=== PATIENT | female | born 1970 | race African-American/Black ===

== ENCOUNTER → 2019-05-07 | Outpatient (CLI) | payer OTHER ==
[2019-05-07 09:54] LABS: BASO % 1 % (0-3); EOS # 0.1 x10^3/uL (0.0-0.7); EOS % 3 % (0-3); HEMATOCRIT 35.3 % (36.0-47.0); HEMOGLOBIN 11.8 g/dL (12.0-15.5); LYMPH # 1.2 x10^3/uL (1.0-4.8); LYMPH % 29 % (24-48); MEAN CORPUSCULAR HEMOGLOBIN 30 pg (25-35); MEAN CORPUSCULAR HGB CONC 34 g/dL (31-37); MEAN CORPUSCULAR VOLUME 90 fL (79-100); MONO # 0.5 x10^3/uL (0.0-1.1); MONO % 12 % (0-9); NEUT # 2.4 x10^3/uL (1.8-7.7); NEUT % 56 % (31-73); PLATELET COUNT 282 x10^3/uL (140-400); RED BLOOD COUNT 3.93 x10^6/uL (3.50-5.40); RED CELL DISTRIBUTION WIDTH 14.3 % (11.5-14.5); WHITE BLOOD COUNT 4.2 x10^3/uL (4.0-11.0)
[2019-05-07 10:10] LABS: ALBUMIN 3.2 g/dL (3.4-5.0); ALBUMIN/GLOBULIN RATIO 0.5 (1.0-1.7); CALCIUM 8.9 mg/dL (8.5-10.1); CREATININE 0.9 mg/dL (0.6-1.0); GFR 81.2; POTASSIUM 3.6 mmol/L (3.5-5.1); TOTAL BILIRUBIN 0.3 mg/dL (0.2-1.0); TOTAL PROTEIN 9.1 g/dL (6.4-8.2)
[2019-05-07 10:11] LABS: CHOLESTEROL/HDL RATIO 5.8
== END | disposition home or self-care (01) ==
LOC: LAB 09:26
PROVIDERS: ATTEND Family Medicine
DX: B20 Human immunodeficiency virus [HIV] disease (principal)
CPT/HCPCS: 80053; 80061; 85025; 86360; 87536

== ENCOUNTER 2019-07-17 19:07 | Emergency (ER) | payer OTHER ==
[~2019-07-17] VITALS: Ht 167.6 cm; Wt 76.2 kg
[2019-07-17] MEDS ORDERED: IV NORMAL SALINE 1000ML BAG 1,000 ML IV SCH (19:21)
--- NOTE | 2019-07-17 19:26 | PHYS DOC ---
Adult General Chief Complaint Chief Complaint: ABDOMINAL PAIN HPI HPI Patient is a 48-year-old female who presents with several day history of sore throat and fever at home. Patient states that she has been taking ibuprofen for the fever but fever has continually returned. She states that today symptoms were different in that she has had pain in her epigastric region. She states the pain is mild and rates it at a 3 out of 10. She denies any radiation of the pain. She states the worst of her symptoms are the sore throat. She denies any cough, nausea, vomiting or diarrhea. She does admit to some body aches and chill s.[] Review of Systems Review of Systems Constitutional: Positive fever and chills [] HENT: Denies nasal congestion or sore throat [] Respiratory: Denies cough or shortness of breath [] Cardiovascular: No additional information not addressed in HPI [] GI: Admits to epigastric discomfort without vomiting or diarrhea [] : Denies dysuria or hematuria [] Neurologic: Admits to mild headache without focal weakness or sensory changes [] All other systems were reviewed and found to be within normal limits, except as documented in this note. Current Medications Current Medications Current Medications Medications (Trade) Dose Ordered Sig/Joel Start Time Stop Time Status Last Admin Dose Admin Acetaminophen (Tylenol) 1,000 mg 1X ONCE 07/17/19 20:00 07/17/19 20:17 DC 07/17/19 20:03 1,000 MG Sodium Chloride 1,000 ml @ 1,000 mls/hr Q1H 07/17/19 19:21 07/17/19 20:20 DC 07/17/19 20:04 1,000 MLS/HR Allergies Allergies Allergies Coded Allergies Type Severity Reaction Last Updated Verified No Known Drug Allergies 07/17/19 No Physical Exam Physical Exam Constitutional: Well developed, well nourished, no acute distress, non-toxic appearance. [] HENT: Normocephalic, atraumatic, bilateral external ears normal, oropharynx moist, no oral exudates, nose normal. [] Eyes: PERRLA, EOMI, conjunctiva normal, no discharge. [] Neck: Normal range of motion, no tenderness, supple, no stridor. [] Cardiovascular:Heart rate regular rhythm, no murmur [] Lungs & Thorax: Bilateral breath sounds clear to auscultation [] Abdomen: Bowel sounds normal, soft, with mild epigastric tenderness. [] Skin: Warm, dry, no erythema, no rash. [] Extremities: No tenderness, no cyanosis, no clubbing, ROM intact. [] Neurologic: Alert and oriented X 3, no focal deficits noted. [] Current Patient Data Vital Signs Vital Signs Date Time Temp Pulse Resp B/P (MAP) Pulse Ox O2 Delivery O2 Flow Rate FiO2 07/17/19 21:10 93 103/62 (76) 95 Room Air 07/17/19 20:45 99.8 99.8 07/17/19 20:20 18 Lab Values Laboratory Tests Test 07/17/19 19:25 07/17/19 19:31 07/17/19 19:40 Urine Collection Type Unknown Urine Color Yellow Urine Clarity Cloudy Urine pH 5.0 Urine Specific [place] 1.020 Urine Protein 30 mg/dL (NEG-TRACE) Urine Glucose (UA) Negative mg/dL (NEG) Urine Ketones (Stick) Negative mg/dL (NEG) Urine Blood Large (NEG) Urine Nitrite Negative (NEG) Urine Bilirubin Negative (NEG) Urine Urobilinogen Dipstick 0.2 mg/dL (0.2 mg/dL) Urine Leukocyte Esterase Small (NEG) Urine RBC Occ /HPF (0-2) Urine WBC 11-20 /HPF (0-4) Urine Squamous Epithelial Cells Many /LPF Urine Bacteria Many /HPF (0-FEW) Urine Mucus Marked /LPF Influenza Type A Antigen Negative (NEGATIVE) Influenza Type B Antigen Negative (NEGATIVE) POC Urine HCG, Qualitative Hcg negative (Negative) White Blood Count 12.0 x10^3/uL (4.0-11.0) H Red Blood Count 3.38 x10^6/uL (3.50-5.40) L Hemoglobin 10.4 g/dL (12.0-15.5) L Hematocrit 30.0 % (36.0-47.0) L Mean Corpuscular Volume 89 fL (79-100) Mean Corpuscular Hemoglobin 31 pg (25-35) Mean Corpuscular Hemoglobin Concent 35 g/dL (31-37) Red Cell Distribution Width 13.5 % (11.5-14.5) Platelet Count 261 x10^3/uL (140-400) Neutrophils (%) (Auto) 73 % (31-73) Lymphocytes (%) (Auto) 14 % (24-48) L Monocytes (%) (Auto) 12 % (0-9) H Eosinophils (%) (Auto) 0 % (0-3) Basophils (%) (Auto) 0 % (0-3) Neutrophils # (Auto) 8.8 x10^3/uL (1.8-7.7) H Lymphocytes # (Auto) 1.7 x10^3/uL (1.0-4.8) Monocytes # (Auto) 1.5 x10^3/uL (0.0-1.1) H Eosinophils # (Auto) 0.1 x10^3/uL (0.0-0.7) Basophils # (Auto) 0.0 x10^3/uL (0.0-0.2) Sodium Level 139 mmol/L (136-145) Potassium Level 3.9 mmol/L (3.5-5.1) Chloride Level 103 mmol/L (98-107) Carbon Dioxide Level 25 mmol/L (21-32) Anion Gap 11 (6-14) Blood Urea Nitrogen 24 mg/dL (7-20) H Creatinine 1.5 mg/dL (0.6-1.0) H Estimated GFR (Cockcroft-Gault) 45.0 BUN/Creatinine Ratio 16 (6-20) Glucose Level 103 mg/dL (70-99) H Lactic Acid Level 0.7 mmol/L (0.4-2.0) Calcium Level 8.8 mg/dL (8.5-10.1) Total Bilirubin 0.2 mg/dL (0.2-1.0) Aspartate Amino Transferase (AST) 19 U/L (15-37) Alanine Aminotransferase (ALT) 12 U/L (14-59) L Alkaline Phosphatase 135 U/L (46-116) H Total Protein 9.2 g/dL (6.4-8.2) H Albumin 2.9 g/dL (3.4-5.0) L Albumin/Globulin Ratio 0.5 (1.0-1.7) L Lipase 163 U/L (73-393) Laboratory Tests 07/17/19 19:40 Laboratory Tests 07/17/19 19:40 EKG EKG [] Radiology/Procedures Radiology/Procedures [] Impressions: PROCEDURE: CT ABDOMEN PELVIS WO CONTRAST Exam: CT abdomen and pelvis without contrast INDICATION: Abdominal pain TECHNIQUE: Sequential axial images through the abdomen and pelvis obtained without IV contrast. Sagittal and coronal reformatted images were reconstructed from the axial data and reviewed. Comparisons: None FINDINGS: Heart size is normal. No pericardial effusion. Visualized lung bases are clear. No pleural effusion. Evaluation of the solid organs is limited secondary to noncontrast technique. Liver, spleen, pancreas, gallbladder and adrenals are unremarkable. No perinephric inflammation or hydronephrosis. No renal or ureteral calculi are identified. Bladder is distended and appears thin-walled. Uterus is not enlarged. No abnormal adnexal mass. Large and small bowel are unremarkable. No obstruction. No free intra-abdominal air or fluid. Appendix is not identified. Abdominal aorta has a normal course and caliber. No enlarged abdominal lymph nodes are identified. No suspicious osseous lesions or acute fractures. IMPRESSION: No acute process identified within the abdomen or pelvis. Exposure: One or more of the following in the visualized dose reduction techniques were utilized for this examination: 1. Automated exposure control 2. Adjustment of the MA and/or KV according to patient size 3. Use of iterative of reconstructive technique Electronically signed by: Lisbeth Whalen MD (07/17/2019 9:02 PM) [facility] Course & Med Decision Making Course & Med Decision Making Pertinent Labs and Imaging studies reviewed. (See chart for details) [] Dragon Disclaimer Dragon Disclaimer This electronic medical record was generated, in whole or in part, using a voice recognition dictation system. Departure Departure Impression: Primary Impression: Pharyngitis Additional Impression: Epigastric abdominal pain Disposition: 01 HOME, SELF-CARE Condition: STABLE Referrals: ESTEFANIA TORO MD (PCP) Patient Instructions: Abdominal Pain, Viral and Bacterial Pharyngitis Scripts Azithromycin (ZITHROMAX) 250 Mg Tablet 1 PKG PO UD, #6 TAB Prov: MANDO BEDOLLA Jr. DO 07/17/19 Problem Qualifiers Primary Impression: Pharyngitis Pharyngitis/tonsillitis etiology: unspecified etiology Qualified Codes: J02.9 - Acute pharyngitis, unspecified MANDO BEDOLLA Jr. DO Jul 17, 2019 19:26
[2019-07-17 19:38] LABS: BILIRUBIN,URINE NEGATIVE (NEG); CLARITY,URINE CLOUDY; COLOR,URINE YELLOW; NITRITE,URINE NEGATIVE (NEG); PROTEIN,URINE 30 mg/dL (NEG-TRACE); UROBILINOGEN,URINE 0.2 mg/dL (0.2 mg/dL)
[2019-07-17 19:42] LABS: BACTERIA,URINE MANY /HPF (0-FEW); RBC,URINE OCC /HPF (0-2); SQUAMOUS EPITHELIAL CELL,UR MANY /LPF
[2019-07-17] MEDS ORDERED: ACETAMINOPHEN 500 MG TABLET PO ONE (20:00)
[2019-07-17 20:02] LABS: BASO % 0 % (0-3); EOS # 0.1 x10^3/uL (0.0-0.7); EOS % 0 % (0-3); HEMOGLOBIN 10.4 g/dL (12.0-15.5); LYMPH # 1.7 x10^3/uL (1.0-4.8); LYMPH % 14 % (24-48); MEAN CORPUSCULAR HEMOGLOBIN 31 pg (25-35); MEAN CORPUSCULAR HGB CONC 35 g/dL (31-37); MEAN CORPUSCULAR VOLUME 89 fL (79-100); MONO # 1.5 x10^3/uL (0.0-1.1); MONO % 12 % (0-9); NEUT # 8.8 x10^3/uL (1.8-7.7); NEUT % 73 % (31-73); PLATELET COUNT 261 x10^3/uL (140-400); RED BLOOD COUNT 3.38 x10^6/uL (3.50-5.40); RED CELL DISTRIBUTION WIDTH 13.5 % (11.5-14.5)
[2019-07-17 20:09] LABS: CALCIUM 8.8 mg/dL (8.5-10.1); CREATININE 1.5 mg/dL (0.6-1.0); POTASSIUM 3.9 mmol/L (3.5-5.1)
[2019-07-17 20:14] LABS: ALBUMIN 2.9 g/dL (3.4-5.0); ALBUMIN/GLOBULIN RATIO 0.5 (1.0-1.7); TOTAL BILIRUBIN 0.2 mg/dL (0.2-1.0); TOTAL PROTEIN 9.2 g/dL (6.4-8.2)
[2019-07-17 20:14] LABS: INFLUENZA A PATIENT NEGATIVE (NEGATIVE); INFLUENZA B PATIENT NEGATIVE (NEGATIVE)
--- NOTE | 2019-07-17 21:05 | RAD ---
Exam: CT abdomen and pelvis without contrast INDICATION: Abdominal pain TECHNIQUE: Sequential axial images through the abdomen and pelvis obtained without IV contrast. Sagittal and coronal reformatted images were reconstructed from the axial data and reviewed. Comparisons: None FINDINGS: Heart size is normal. No pericardial effusion. Visualized lung bases are clear. No pleural effusion. Evaluation of the solid organs is limited secondary to noncontrast technique. Liver, spleen, pancreas, gallbladder and adrenals are unremarkable. No perinephric inflammation or hydronephrosis. No renal or ureteral calculi are identified. Bladder is distended and appears thin-walled. Uterus is not enlarged. No abnormal adnexal mass. Large and small bowel are unremarkable. No obstruction. No free intra-abdominal air or fluid. Appendix is not identified. Abdominal aorta has a normal course and caliber. No enlarged abdominal lymph nodes are identified. No suspicious osseous lesions or acute fractures. IMPRESSION: No acute process identified within the abdomen or pelvis. Exposure: One or more of the following in the visualized dose reduction techniques were utilized for this examination: 1. Automated exposure control 2. Adjustment of the MA and/or KV according to patient size 3. Use of iterative of reconstructive technique Electronically signed by: Lisbeth Whalen MD (07/17/2019 9:02 PM) [facility]
--- NOTE | 2019-07-17 21:46 | RAD ---
CHEST AP ONLY History: Fever Comparison: None. Findings: No consolidation or pleural effusion. Normal heart size. Impression: 1. No acute cardiopulmonary process. Electronically signed by: Mauricio Vasques DO (07/17/2019 9:43 PM) [id number]
[2019-07-17 22:10] VITALS: BP 98/55
[2019-07-17] MEDS ORDERED: AZIT250T PO (22:14)
[2019-07-17] MEDS ORDERED: AZITHROMYCIN 250 MG TABLET. PO ONE (22:30)
== END 2019-07-17 22:50 | disposition home or self-care (01) ==
LOC: EEVIPCON 19:07 → ER 19:07
DX: J02.9 Acute pharyngitis, unspecified (principal); R10.13 Epigastric pain; R19.7 Diarrhea, unspecified
CPT/HCPCS: 36415; 71045; 74176; 80053; 81001; 81025; 83605; 83690; 85025; 87070; 87086; 87804; 87880; 96360; 99285; J7030; Q0144

== ENCOUNTER → 2019-08-05 | Outpatient (CLI) | payer OTHER ==
[2019-07-17 22:10] VITALS: BP 98/55
[~2019-08-05] MED LIST: AZIT250T PO
[2019-08-05 15:49] LABS: BASO % 1 % (0-3); EOS # 0.2 x10^3/uL (0.0-0.7); EOS % 4 % (0-3); HEMATOCRIT 33.1 % (36.0-47.0); HEMOGLOBIN 11.1 g/dL (12.0-15.5); LYMPH # 1.4 x10^3/uL (1.0-4.8); LYMPH % 35 % (24-48); MEAN CORPUSCULAR HEMOGLOBIN 31 pg (25-35); MEAN CORPUSCULAR HGB CONC 34 g/dL (31-37); MEAN CORPUSCULAR VOLUME 91 fL (79-100); MONO # 0.6 x10^3/uL (0.0-1.1); MONO % 15 % (0-9); NEUT # 1.8 x10^3/uL (1.8-7.7); NEUT % 45 % (31-73); PLATELET COUNT 279 x10^3/uL (140-400); RED BLOOD COUNT 3.65 x10^6/uL (3.50-5.40); RED CELL DISTRIBUTION WIDTH 13.8 % (11.5-14.5); WHITE BLOOD COUNT 4.1 x10^3/uL (4.0-11.0)
[2019-08-05 16:25] LABS: ALBUMIN 3.2 g/dL (3.4-5.0); ALBUMIN/GLOBULIN RATIO 0.5 (1.0-1.7); CALCIUM 8.7 mg/dL (8.5-10.1); CREATININE 1.3 mg/dL (0.6-1.0); GFR 53.1; TOTAL BILIRUBIN 0.2 mg/dL (0.2-1.0); TOTAL PROTEIN 9.3 g/dL (6.4-8.2)
[2019-08-05 16:27] LABS: CHOLESTEROL/HDL RATIO 7.2
== END | disposition home or self-care (01) ==
LOC: LAB 15:16
PROVIDERS: ATTEND Family Medicine
DX: B20 Human immunodeficiency virus [HIV] disease (principal)
CPT/HCPCS: 36415; 80053; 80061; 85025; 87536

== ENCOUNTER → 2019-11-26 | Outpatient (CLI) | payer OTHER ==
[2019-11-26 14:02] LABS: BASO % 1 % (0-3); EOS # 0.1 x10^3/uL (0.0-0.7); EOS % 2 % (0-3); HEMATOCRIT 31.4 % (36.0-47.0); HEMOGLOBIN 10.5 g/dL (12.0-15.5); LYMPH # 1.6 x10^3/uL (1.0-4.8); LYMPH % 29 % (24-48); MEAN CORPUSCULAR HEMOGLOBIN 31 pg (25-35); MEAN CORPUSCULAR HGB CONC 33 g/dL (31-37); MEAN CORPUSCULAR VOLUME 91 fL (79-100); MONO # 0.5 x10^3/uL (0.0-1.1); MONO % 9 % (0-9); NEUT # 3.2 x10^3/uL (1.8-7.7); NEUT % 59 % (31-73); PLATELET COUNT 335 x10^3/uL (140-400); RED BLOOD COUNT 3.43 x10^6/uL (3.50-5.40); RED CELL DISTRIBUTION WIDTH 13.5 % (11.5-14.5); WHITE BLOOD COUNT 5.4 x10^3/uL (4.0-11.0)
[2019-11-26 14:20] LABS: ALBUMIN 3.1 g/dL (3.4-5.0); ALBUMIN/GLOBULIN RATIO 0.6 (1.0-1.7); CALCIUM 9.1 mg/dL (8.5-10.1); CREATININE 1.5 mg/dL (0.6-1.0); GFR 44.8; POTASSIUM 4.6 mmol/L (3.5-5.1); TOTAL BILIRUBIN 0.2 mg/dL (0.2-1.0); TOTAL PROTEIN 8.7 g/dL (6.4-8.2)
[2019-11-26 14:26] LABS: CHOLESTEROL/HDL RATIO 8.5
== END | disposition home or self-care (01) ==
LOC: LAB 13:09
PROVIDERS: ATTEND Family Medicine
DX: B20 Human immunodeficiency virus [HIV] disease (principal)
CPT/HCPCS: 36415; 80053; 80061; 85025; 87536

== ENCOUNTER → 2020-05-25 | Outpatient (CLI) | payer OTHER ==
[2020-05-25 10:52] LABS: ALBUMIN 3.3 g/dL (3.4-5.0); ALBUMIN/GLOBULIN RATIO 0.5 (1.0-1.7); CALCIUM 9.1 mg/dL (8.5-10.1); CREATININE 1.3 mg/dL (0.6-1.0); GFR 52.9; POTASSIUM 3.8 mmol/L (3.5-5.1); TOTAL BILIRUBIN 0.2 mg/dL (0.2-1.0); TOTAL PROTEIN 9.9 g/dL (6.4-8.2)
[2020-05-25 11:02] LABS: BASO % 1 % (0-3); EOS # 0.2 x10^3/uL (0.0-0.7); EOS % 3 % (0-3); HEMATOCRIT 31.4 % (36.0-47.0); HEMOGLOBIN 10.8 g/dL (12.0-15.5); LYMPH # 2.1 x10^3/uL (1.0-4.8); LYMPH % 25 % (24-48); MEAN CORPUSCULAR HEMOGLOBIN 31 pg (25-35); MEAN CORPUSCULAR HGB CONC 34 g/dL (31-37); MEAN CORPUSCULAR VOLUME 91 fL (79-100); MONO # 1.4 x10^3/uL (0.0-1.1); MONO % 16 % (0-9); NEUT # 4.8 x10^3/uL (1.8-7.7); NEUT % 56 % (31-73); PLATELET COUNT 330 x10^3/uL (140-400); RED BLOOD COUNT 3.46 x10^6/uL (3.50-5.40); RED CELL DISTRIBUTION WIDTH 14.5 % (11.5-14.5); WHITE BLOOD COUNT 8.6 x10^3/uL (4.0-11.0)
== END | disposition home or self-care (01) ==
LOC: LAB 10:00
PROVIDERS: ATTEND Family Medicine
DX: B20 Human immunodeficiency virus [HIV] disease (principal)
CPT/HCPCS: 36415; 80053; 80061; 85025; 87536

== ENCOUNTER 2020-11-17 14:42 | Inpatient (IN) | payer OTHER ==
[~2020-11-17] VITALS: Ht 170.2 cm; Wt 74.7 kg
[2020-11-17] MEDS ORDERED: FAMOTIDINE 20 MG/2 ML VIAL IVP ONE (15:45)
[2020-11-17] MEDS ORDERED: IV NORMAL SALINE 1000ML BAG 1,000 ML IV SCH (15:45)
[2020-11-17] MEDS ORDERED: ONDANSETRON PF 4 MG/2 ML VIAL. IVP ONE (15:45)
[2020-11-17] MEDS ORDERED: IV NORMAL SALINE 1000ML BAG 1,000 ML IV ONE (15:45)
--- NOTE | 2020-11-17 15:52 | RAD ---
EXAM: XR CHEST 1V 11/17/2020 3:41 PM CLINICAL INDICATION: Vomiting, fever. COMPARISON: Chest radiograph 07/17/2019 TECHNIQUE: AP upright view the chest FINDINGS: The heart and mediastinum are normal. Lungs are well-expanded and clear. No consolidation, pleural effusion, or pneumothorax. No acute osseous abnormality. IMPRESSION: No acute cardiopulmonary abnormality. Electronically signed by: Danna Reyes MD (11/17/2020 3:50 PM) [id number]
[2020-11-17 16:02] LABS: CLARITY,URINE TURBID
[2020-11-17 16:04] LABS: AMPHETAMINE/METHAMPHETAMINE NEG (NEG); BARBITURATES NEG (NEG); BENZODIAZEPINES NEG (NEG); CANNABINOIDS NEG (NEG); COCAINE NEG (NEG); METHADONE NEG (NEG); OPIATES NEG (NEG); PHENCYCLIDINE NEG (NEG)
--- NOTE | 2020-11-17 16:14 | PHYS DOC ---
Past Medical History Past Medical History: HIV Past Surgical History: , Tonsillectomy Smoking Status: Never Smoker Alcohol Use: None Drug Use: None General Adult EDM: Chief Complaint: NAUSEA/VOMITING/DIARRHA HPI: HPI: Patient is a 50 year old female who presents with nausea, vomiting, chills, fatigue but no abdominal pain. She has no other pain. Patient has been feeling this way for the last 4 days or longer. Patient states she has no medical history and has been taking no meds. Looking back in her chart patient has been diagnosed with HIV in the past, has had tonsillectomy and . Patient denies chest pain, shortness of breath, abdominal pain, diarrhea, sore throat, nasal congestion, headache, dizziness, syncope, numbness or tingling, focal weakness, back pain. Review of Systems: Review of Systems: Constitutional: +fever or +chills. [] Eyes: Denies change in visual acuity. [] HENT: Denies nasal congestion or sore throat. [] Respiratory: Denies cough or shortness of breath. [] Cardiovascular: Denies chest pain or edema. [] GI: Denies abdominal pain, +nausea, +vomiting, denies bloody stools or diarrhea. [] : Denies dysuria. [] Musculoskeletal: Denies back pain or joint pain. +Generalized fatigue [] Integument: Denies rash. [] Neurologic: Denies headache, focal weakness or sensory changes. [] Endocrine: Denies polyuria or polydipsia. [] Lymphatic: Denies swollen glands. [] Psychiatric: Denies depression or anxiety. [] Heart Score: Risk Factors: Risk Factors: DM, Current or recent (<one month) smoker, HTN, HLP, family history of CAD, obesity. Risk Scores: Score 0 - 3: 2.5% MACE over next 6 weeks - Discharge Home Score 4 - 6: 20.3% MACE over next 6 weeks - Admit for Clinical Observation Score 7 - 10: 72.7% MACE over next 6 weeks - Early Invasive Strategies Current Medications: Current Medications Medications (Trade) Dose Ordered Sig/Joel Start Time Stop Time Status Last Admin Dose Admin Famotidine (Pepcid Vial) 20 mg 1X ONCE 11/17/20 15:45 11/17/20 15:46 DC Ondansetron HCl (Zofran) 4 mg 1X ONCE 11/17/20 15:45 11/17/20 15:46 DC Sodium Chloride 1,000 ml @ 1,000 mls/hr 1X ONCE 11/17/20 15:45 11/17/20 16:44 Allergies: Allergies: Allergies Coded Allergies Type Severity Reaction Last Updated Verified No Known Drug Allergies 07/17/19 No Physical Exam: PE: Constitutional: Well developed, well nourished, no acute distress, non-toxic appearance. [] HENT: Normocephalic, atraumatic, bilateral external ears normal, oropharynx moist, no oral exudates, nose normal. [] Eyes: PERRLA, EOMI, conjunctiva normal, no discharge. [] Neck: Normal range of motion, no tenderness, supple, no stridor. [] Cardiovascular:Heart rate tachy regular rhythm, no murmur [] Lungs & Thorax: Bilateral breath sounds clear to auscultation [] Abdomen: Bowel sounds normal, soft, no tenderness, no masses, no pulsatile masses. [] Skin: Warm, dry, no erythema, no rash. [] Back: No tenderness, no CVA tenderness. [] Extremities: No tenderness, no cyanosis, no clubbing, ROM intact, no edema. [] Neurologic: Alert and oriented X 3, normal motor function, normal sensory function, no focal deficits noted. [] Psychologic: Affect normal, judgement normal, mood normal. [] Current Patient Data: Vital Signs: Vital Signs Date Time Temp Pulse Resp B/P (MAP) Pulse Ox O2 Delivery O2 Flow Rate FiO2 11/17/20 15:00 98.2 120 22 120/79 (93) 97 Room Air 98.2 EKG: EK and read by Dr. Jaramillo as sinus tach and no STEMI Radiology/Procedures: Radiology/Procedures: [] Impression: [facility] [address] [place], [place] [id number] IMAGING REPORT Signed PATIENT: SHAYY GAMEZ ACCOUNT: [id number] : 1970 LOCATION: ER AGE: 50 SEX: F EXAM STATUS: REG ER ORD. PHYSICIAN: BAFUS,MARBIN M [employer] DEV[employer]OPER REASON: vomiting, fever PROCEDURE: PORTABLE CHEST 1V EXAM: XR CHEST 1V 11/17/2020 3:41 PM CLINICAL INDICATION: Vomiting, fever. COMPARISON: Chest radiograph 07/17/2019 TECHNIQUE: AP upright view the chest FINDINGS: The heart and mediastinum are normal. Lungs are well-expanded and clear. No consolidation, pleural effusion, or pneumothorax. No acute osseous abnormality. IMPRESSION: No acute cardiopulmonary abnormality. Electronically signed by: Danna Reyes MD (11/17/2020 3:50 PM) [id number] DICTATED and SIGNED BY: DANNA REYES MD DATE: 11/17/20 [id number] 0 Course & Med Decision Making: Course & Med Decision Making Pertinent Labs and Imaging studies reviewed. (See chart for details) See HPI. Alert and oriented x4. Ambulatory with a steady gait. She states that her appetite has been decreased. Her urine is very dark in color. Abdomen is soft and nontender. Lungs are clear to auscultation all lobes. Patient is slightly tachycardic at 108. She is afebrile. X-ray shows no acute findings. Patient has an LEXX. She has received 2 L normal saline. Her heart rate is come down to 87. She is admitted for an LEXX and we will have infectious disease and nephrology see her. She is admitted to Dr. Ray. I spoken to Dr. Hawthorne and she states she is to make sure the patient has a.m. labs. [] [place] Disclaimer: Perla Disclaimer: This electronic medical record was generated, in whole or in part, using a voice recognition dictation system. Departure Departure Impression: Primary Impression: Acute kidney injury Disposition: ADMITTED INPT THIS HOSP Admitting Physician: PATRICK Condition: STABLE Referrals: ESTEFANIA TORO MD (PCP) MARBIN GUPTA APRN Nov 17, 2020 16:14
[2020-11-17 16:24] LABS: RBC,URINE TNTC /HPF (0-2)
[2020-11-17 16:25] LABS: BACTERIA,URINE MANY /HPF (0-FEW)
[2020-11-17 16:27] LABS: COLOR,URINE BROWN
[2020-11-17 16:28] LABS: BASO # 0.1 x10^3/uL (0.0-0.2); BASO % 1 % (0-3); EOS % 0 % (0-3); HEMATOCRIT 31.6 % (36.0-47.0); HEMOGLOBIN 10.7 g/dL (12.0-15.5); LYMPH # 1.2 x10^3/uL (1.0-4.8); LYMPH % 11 % (24-48); MEAN CORPUSCULAR HEMOGLOBIN 30 pg (25-35); MEAN CORPUSCULAR HGB CONC 34 g/dL (31-37); MEAN CORPUSCULAR VOLUME 89 fL (79-100); MONO # 1.6 x10^3/uL (0.0-1.1); MONO % 15 % (0-9); NEUT % 74 % (31-73); PLATELET COUNT 264 x10^3/uL (140-400); RED BLOOD COUNT 3.57 x10^6/uL (3.50-5.40); RED CELL DISTRIBUTION WIDTH 15.3 % (11.5-14.5); WHITE BLOOD COUNT 10.8 x10^3/uL (4.0-11.0)
[2020-11-17] MEDS ORDERED: cefTRIAXone IV Push 1 GM VIAL. IVP ONE (16:45)
[2020-11-17 16:49] LABS: U PREG PATIENT NEGATIVE (NEG)
[2020-11-17 17:09] LABS: CALCIUM 9.5 mg/dL (8.5-10.1); CREATININE 2.1 mg/dL (0.6-1.0); GFR 30.3; POTASSIUM 3.7 mmol/L (3.5-5.1)
[2020-11-17 17:15] LABS: ALBUMIN 3.2 g/dL (3.4-5.0); ALBUMIN/GLOBULIN RATIO 0.5 (1.0-1.7); TOTAL BILIRUBIN 0.2 mg/dL (0.2-1.0); TOTAL PROTEIN 9.7 g/dL (6.4-8.2)
[2020-11-17] MEDS ORDERED: ONDANSETRON PF 4 MG/2 ML VIAL. IV PRN (18:30)
--- NOTE | 2020-11-17 19:20 | HP ---
ADMIT DATE: 11/17/2020 CHIEF COMPLAINT: Nausea, vomiting, chills. HISTORY OF PRESENT ILLNESS: The patient is a pleasant middle-aged female who has HIV. I do not think she is taking her medications. Now, she has nausea, vomiting, chills, diarrhea, it has been occurring for a couple of days, rated at 7/10. While in the ER, we noticed that she has an acute kidney injury with a BUN of 34, creatinine of 2.1. I discussed the case with ER physician. We are going to admit the patient and consult Infectious Disease and Nephrology. PAST MEDICAL HISTORY: Noncompliance, HIV, , tonsillectomy. ALLERGIES: None. FAMILY HISTORY: Diabetes. SOCIAL HISTORY: She does not drink, smoke or take drugs. MEDICATIONS: Reviewed, please refer to the MRAD. REVIEW OF SYSTEMS: GENERAL: No history of weight change, weakness or fevers. SKIN: No bruising, hair changes or rashes. EYES: No blurred, double or loss of vision. NOSE AND THROAT: No history of nosebleeds, hoarseness or sore throat. HEART: No history of palpitations, chest pain or shortness of breath on exertion. LUNGS: Denies cough, hemoptysis, wheezing or shortness of breath. GASTROINTESTINAL: She complains of nausea, vomiting, diarrhea. GENITOURINARY: No history of frequency, urgency, hesitancy or nocturia. NEUROLOGIC: Denies history of numbness, tingling, tremor or weakness. PSYCHIATRIC: No history of panic, anxiety or depression. ENDOCRINE: No history of heat or cold intolerance, polyuria or polydipsia. EXTREMITIES: Denies muscle weakness, joint pain, pain on walking or stiffness. PHYSICAL EXAMINATION: VITALS: Within normal limits and are stable. GENERAL: No apparent distress. Alert and oriented. HEENT: Normal cephalic atraumatic, external auditory canals are patent. EYES: Extraocular muscles are intact, pupils are equally round and reactive to light and accommodation. MUSCULOSKELETAL: Well developed, well nourished, good range of motion. ENDOCRINE: No thyromegaly was palpated. LYMPHATICS: No cervical chain or axillary nodes were noted. HEMATOPOIETIC: No bruising. NECK: Supple, no JVD, no thyromegaly was noted. LUNGS: Clear to auscultation in all lung santana without rhonchi or wheezing. HEART: RRR, S1, S2 present. Peripheral pulses intact, no obvious murmurs were noted. ABDOMEN: Soft, nontender. Positive bowel sounds no organomegaly, normal bowel sounds. EXTREMITIES: Without any cyanosis, clubbing, or edema. Pedal pulses intact, Homans sign is negative. NEUROLOGIC: Normal speech, normal tone. A & O x 3, moves all extremities, no obvious focal deficits. PSYCHIATRIC: Normal affect, normal mood. Stable. SKIN: No ulcerations or rashes, good skin turgor, no jaundice. VASCULAR: Good capillary refill, neurovascular bundle appears to be intact. LABORATORY DATA: White count is 10. Chest x-ray negative. BUN 34, creatinine 2.1. ASSESSMENT AND PLAN: Nausea, vomiting, diarrhea with incidental finding of acute kidney injury with a BUN of 34, creatinine 2.1. The patient will be admitted. We will start IV fluids. Consult Infectious Disease. Consult Nephrology. Home meds, DVT prophylaxis. Full code. P.r.n. Kaleb. We started one dose of IV ceftriaxone, IV Pepcid. Drug screen. LENNY LATHAM DO DR: GIRISH/doyle JOB#: [id number] / [id number]
[2020-11-17 22:49] VITALS: BP 119/71
[2020-11-18 03:06] VITALS: BP 118/57
[2020-11-18] MEDS: ACETAMINOPHEN 325 MG TABLET. PO PRN ×2 (03:23→13:52)
[2020-11-18 07:00] VITALS: BP 108/63
[2020-11-18 08:05] LABS: BASO % 1 % (0-3); EOS % 0 % (0-3); HEMOGLOBIN 8.9 g/dL (12.0-15.5); LYMPH # 1.5 x10^3/uL (1.0-4.8); LYMPH % 17 % (24-48); MEAN CORPUSCULAR HEMOGLOBIN 30 pg (25-35); MEAN CORPUSCULAR HGB CONC 34 g/dL (31-37); MEAN CORPUSCULAR VOLUME 89 fL (79-100); MONO # 1.5 x10^3/uL (0.0-1.1); MONO % 17 % (0-9); NEUT # 5.9 x10^3/uL (1.8-7.7); NEUT % 66 % (31-73); PLATELET COUNT 239 x10^3/uL (140-400); RED BLOOD COUNT 2.93 x10^6/uL (3.50-5.40); RED CELL DISTRIBUTION WIDTH 15.2 % (11.5-14.5); WHITE BLOOD COUNT 8.9 x10^3/uL (4.0-11.0)
[2020-11-18 08:31] LABS: ALBUMIN 2.5 g/dL (3.4-5.0); ALBUMIN/GLOBULIN RATIO 0.5 (1.0-1.7); CALCIUM 8.8 mg/dL (8.5-10.1); CREATININE 1.7 mg/dL (0.6-1.0); GFR 38.7; POTASSIUM 3.5 mmol/L (3.5-5.1); TOTAL BILIRUBIN 0.2 mg/dL (0.2-1.0); TOTAL PROTEIN 7.8 g/dL (6.4-8.2)
--- NOTE | 2020-11-18 09:57 | PDOC ---
PROGRESS NOTES Date of Service: DATE: 11/18/20 TIME: 09:56 Chief Complaint Chief Complaint ASSESSMENT AND PLAN: Nausea, vomiting, diarrhea acute kidney injury with a BUN of 34, creatinine 2.1. sepsis possible acute pyelonephritis HEMATURIA t max 101.4 this am 2-10 admitted. IV fluids. Consult Infectious Disease. pending Consult Nephrology. pending Home meds, DVT prophylaxis. Full code. P.r.n. Zofran. IV ceftriaxone, IV Pepcid. Drug screen. blood culture crp RENAL SONO D/W RN History of Present Illness History of Present Illness CHIEF COMPLAINT: Nausea, vomiting, chills. HISTORY OF PRESENT ILLNESS: The patient is a pleasant middle-aged female who has HIV. I do not think she is taking her medications. Now, she has nausea, vomiting, chills, diarrhea, it has been occurring for a couple of days, rated at 7/10. While in the ER, we noticed that she has an acute kidney injury with a BUN of 34, creatinine of 2.1. We are going to admit the patient and consult Infectious Disease and Nephrology. PAST MEDICAL HISTORY: Noncompliance, HIV, , tonsillectomy. ALLERGIES: None. FAMILY HISTORY: Diabetes. SOCIAL HISTORY: She does not drink, smoke or take drugs. MEDICATIONS: Reviewed, please refer to the MRAD. REVIEW OF SYSTEMS: GENERAL: No history of weight change, weakness or fevers. SKIN: No bruising, hair changes or rashes. EYES: No blurred, double or loss of vision. NOSE AND THROAT: No history of nosebleeds, hoarseness or sore throat. HEART: No history of palpitations, chest pain or shortness of breath on exertion. LUNGS: Denies cough, hemoptysis, wheezing or shortness of breath. GASTROINTESTINAL: She complains of nausea, vomiting, diarrhea. GENITOURINARY: No history of frequency, urgency, hesitancy or nocturia. NEUROLOGIC: Denies history of numbness, tingling, tremor or weakness. PSYCHIATRIC: No history of panic, anxiety or depression. ENDOCRINE: No history of heat or cold intolerance, polyuria or polydipsia. EXTREMITIES: Denies muscle weakness, joint pain, pain on walking or stiffness. Vitals Vitals Vital Signs Date Time Temp Pulse Resp B/P (MAP) Pulse Ox O2 Delivery O2 Flow Rate FiO2 11/18/20 07:00 99.1 78 18 108/63 (78) 96 Room Air 99.1 Physical Exam Physical Exam EYES: Extraocular muscles are intact, pupils are equally round and reactive to light and accommodation. MUSCULOSKELETAL: Well developed, well nourished, good range of motion. ENDOCRINE: No thyromegaly was palpated. LYMPHATICS: No cervical chain or axillary nodes were noted. HEMATOPOIETIC: No bruising. NECK: Supple, no JVD, no thyromegaly was noted. LUNGS: Clear to auscultation in all lung santana without rhonchi or wheezing. HEART: RRR, S1, S2 present. Peripheral pulses intact, no obvious murmurs were noted. ABDOMEN: Soft, nontender. Positive bowel sounds no organomegaly, normal bowel sounds. EXTREMITIES: Without any cyanosis, clubbing, or edema. Pedal pulses intact, Homans sign is negative. NEUROLOGIC: Normal speech, normal tone. A & O x 3, moves all extremities, no obvious focal deficits. PSYCHIATRIC: Normal affect, normal mood. Stable. SKIN: No ulcerations or rashes, good skin turgor, no jaundice. VASCULAR: Good capillary refill, neurovascular bundle appears to be intact. General: Alert, Oriented X3, Cooperative, No acute distress Heart: Regular rate Lungs: Clear Extremities: No cyanosis Labs LABS Exam: CT abdomen and pelvis without contrast INDICATION: Abdominal pain TECHNIQUE: Sequential axial images through the abdomen and pelvis obtained without IV contrast. Sagittal and coronal reformatted images were reconstructed from the axial data and reviewed. Comparisons: None FINDINGS: Heart size is normal. No pericardial effusion. Visualized lung bases are clear. No pleural effusion. Evaluation of the solid organs is limited secondary to noncontrast technique. Liver, spleen, pancreas, gallbladder and adrenals are unremarkable. No perinephric inflammation or hydronephrosis. No renal or ureteral calculi are identified. Bladder is distended and appears thin-walled. Uterus is not enlarged. No abnormal adnexal mass. Large and small bowel are unremarkable. No obstruction. No free intra-abdominal air or fluid. Appendix is not identified. Abdominal aorta has a normal course and caliber. No enlarged abdominal lymph nodes are identified. No suspicious osseous lesions or acute fractures. IMPRESSION: No acute process identified within the abdomen or pelvis. Exposure: One or more of the following in the visualized dose reduction techniques were utilized for this examination: 1. Automated exposure control 2. Adjustment of the MA and/or KV according to patient size 3. Use of iterative of reconstructive technique Electronically signed by: Lisbeth Al MD (07/17/2019 9:02 PM) [facility] DICTATED and SIGNED BY: LISBETH AL MD DATE: 07/17/192101 PATIENT: SHAYY GAMEZ ACCOUNT: [id number] : 1970 LOCATION: ER AGE: 50 SEX: F EXAM STATUS: REG ER ORD. PHYSICIAN: MARBIN GUPTA APRN REASON: vomiting, fever PROCEDURE: PORTABLE CHEST 1V EXAM: XR CHEST 1V 11/17/2020 3:41 PM CLINICAL INDICATION: Vomiting, fever. COMPARISON: Chest radiograph 07/17/2019 TECHNIQUE: AP upright view the chest FINDINGS: The heart and mediastinum are normal. Lungs are well-expanded and clear. No consolidation, pleural effusion, or pneumothorax. No acute osseous abnormality. IMPRESSION: No acute cardiopulmonary abnormality. Electronically signed by: Danna Reyes MD (11/17/2020 3:50 PM) [id number] DICTATED and SIGNED BY: DANNA REYES MD DATE: 11/17/20 [id number] Laboratory Tests Test 11/17/20 15:40 11/17/20 16:11 11/18/20 07:00 Urine Collection Type Unknown Urine Color Brown Urine Clarity Turbid Urine pH (<5.0-8.0) Urine Specific [place] (1.000-1.030) Urine Protein mg/dL (NEG-TRACE) Urine Glucose (UA) mg/dL (NEG) Urine Ketones (Stick) mg/dL (NEG) Urine Blood (NEG) Urine Nitrite (NEG) Urine Bilirubin (NEG) Urine Urobilinogen Dipstick mg/dL (0.2 mg/dL) Urine Leukocyte Esterase (NEG) Urine RBC Tntc /HPF (0-2) Urine WBC 5-10 /HPF (0-4) Urine Squamous Epithelial Cells Many /LPF Urine Bacteria Many /HPF (0-FEW) Urine Mucus Marked /LPF Urine Test Negative (NEG) Urine Opiates Screen Neg (NEG) Urine Methadone Screen Neg (NEG) Urine Barbiturates Neg (NEG) Urine Phencyclidine Screen Neg (NEG) Urine Amphetamine/Methamphetamine Neg (NEG) Urine Benzodiazepines Screen Neg (NEG) Urine Cocaine Screen Neg (NEG) Urine Cannabinoids Screen Neg (NEG) Urine Ethyl Alcohol Neg (NEG) White Blood Count 10.8 x10^3/uL (4.0-11.0) 8.9 x10^3/uL (4.0-11.0) Red Blood Count 3.57 x10^6/uL (3.50-5.40) 2.93 x10^6/uL (3.50-5.40) Hemoglobin 10.7 g/dL (12.0-15.5) 8.9 g/dL (12.0-15.5) Hematocrit 31.6 % (36.0-47.0) 26.0 % (36.0-47.0) Mean Corpuscular Volume 89 fL (79-100) 89 fL (79-100) Mean Corpuscular Hemoglobin 30 pg (25-35) 30 pg (25-35) Mean Corpuscular Hemoglobin Concent 34 g/dL (31-37) 34 g/dL (31-37) Red Cell Distribution Width 15.3 % (11.5-14.5) 15.2 % (11.5-14.5) Platelet Count 264 x10^3/uL (140-400) 239 x10^3/uL (140-400) Neutrophils (%) (Auto) 74 % (31-73) 66 % (31-73) Lymphocytes (%) (Auto) 11 % (24-48) 17 % (24-48) Monocytes (%) (Auto) 15 % (0-9) 17 % (0-9) Eosinophils (%) (Auto) 0 % (0-3) 0 % (0-3) Basophils (%) (Auto) 1 % (0-3) 1 % (0-3) Neutrophils # (Auto) 8.0 x10^3/uL (1.8-7.7) 5.9 x10^3/uL (1.8-7.7) Lymphocytes # (Auto) 1.2 x10^3/uL (1.0-4.8) 1.5 x10^3/uL (1.0-4.8) Monocytes # (Auto) 1.6 x10^3/uL (0.0-1.1) 1.5 x10^3/uL (0.0-1.1) Eosinophils # (Auto) 0.0 x10^3/uL (0.0-0.7) 0.0 x10^3/uL (0.0-0.7) Basophils # (Auto) 0.1 x10^3/uL (0.0-0.2) 0.0 x10^3/uL (0.0-0.2) Sodium Level 135 mmol/L (136-145) 136 mmol/L (136-145) Potassium Level 3.7 mmol/L (3.5-5.1) 3.5 mmol/L (3.5-5.1) Chloride Level 100 mmol/L (98-107) 102 mmol/L (98-107) Carbon Dioxide Level 27 mmol/L (21-32) 24 mmol/L (21-32) Anion Gap 8 (6-14) 10 (6-14) Blood Urea Nitrogen 34 mg/dL (7-20) 23 mg/dL (7-20) Creatinine 2.1 mg/dL (0.6-1.0) 1.7 mg/dL (0.6-1.0) Estimated GFR (Cockcroft-Gault) 30.3 38.7 BUN/Creatinine Ratio 16 (6-20) 14 (6-20) Glucose Level 107 mg/dL (70-99) 102 mg/dL (70-99) Calcium Level 9.5 mg/dL (8.5-10.1) 8.8 mg/dL (8.5-10.1) Total Bilirubin 0.2 mg/dL (0.2-1.0) 0.2 mg/dL (0.2-1.0) Aspartate Amino Transf (AST/SGOT) 18 U/L (15-37) 14 U/L (15-37) Alanine Aminotransferase (ALT/SGPT) 16 U/L (14-59) 14 U/L (14-59) Alkaline Phosphatase 112 U/L (46-116) 91 U/L (46-116) Troponin I Quantitative < 0.017 ng/mL (0.000-0.055) Total Protein 9.7 g/dL (6.4-8.2) 7.8 g/dL (6.4-8.2) Albumin 3.2 g/dL (3.4-5.0) 2.5 g/dL (3.4-5.0) Albumin/Globulin Ratio 0.5 (1.0-1.7) 0.5 (1.0-1.7) Lipase 173 U/L (73-393) Assessment and Plan Assessmemt and Plan Problems Medical Problems: (1) Acute kidney injury Status: Acute Comment Review of Relevant I have reviewed the following items hero (where applicable) has been applied. Labs Laboratory Tests Test 11/17/20 15:40 11/17/20 16:11 11/18/20 07:00 Urine Collection Type Unknown Urine Color Brown Urine Clarity Turbid Urine pH (<5.0-8.0) Urine Specific [place] (1.000-1.030) Urine Protein mg/dL (NEG-TRACE) Urine Glucose (UA) mg/dL (NEG) Urine Ketones (Stick) mg/dL (NEG) Urine Blood (NEG) Urine Nitrite (NEG) Urine Bilirubin (NEG) Urine Urobilinogen Dipstick mg/dL (0.2 mg/dL) Urine Leukocyte Esterase (NEG) Urine RBC Tntc /HPF (0-2) Urine WBC 5-10 /HPF (0-4) Urine Squamous Epithelial Cells Many /LPF Urine Bacteria Many /HPF (0-FEW) Urine Mucus Marked /LPF Urine Test Negative (NEG) Urine Opiates Screen Neg (NEG) Urine Methadone Screen Neg (NEG) Urine Barbiturates Neg (NEG) Urine Phencyclidine Screen Neg (NEG) Urine Amphetamine/Methamphetamine Neg (NEG) Urine Benzodiazepines Screen Neg (NEG) Urine Cocaine Screen Neg (NEG) Urine Cannabinoids Screen Neg (NEG) Urine Ethyl Alcohol Neg (NEG) White Blood Count 10.8 x10^3/uL (4.0-11.0) 8.9 x10^3/uL (4.0-11.0) Red Blood Count 3.57 x10^6/uL (3.50-5.40) 2.93 x10^6/uL (3.50-5.40) Hemoglobin 10.7 g/dL (12.0-15.5) 8.9 g/dL (12.0-15.5) Hematocrit 31.6 % (36.0-47.0) 26.0 % (36.0-47.0) Mean Corpuscular Volume 89 fL (79-100) 89 fL (79-100) Mean Corpuscular Hemoglobin 30 pg (25-35) 30 pg (25-35) Mean Corpuscular Hemoglobin Concent 34 g/dL (31-37) 34 g/dL (31-37) Red Cell Distribution Width 15.3 % (11.5-14.5) 15.2 % (11.5-14.5) Platelet Count 264 x10^3/uL (140-400) 239 x10^3/uL (140-400) Neutrophils (%) (Auto) 74 % (31-73) 66 % (31-73) Lymphocytes (%) (Auto) 11 % (24-48) 17 % (24-48) Monocytes (%) (Auto) 15 % (0-9) 17 % (0-9) Eosinophils (%) (Auto) 0 % (0-3) 0 % (0-3) Basophils (%) (Auto) 1 % (0-3) 1 % (0-3) Neutrophils # (Auto) 8.0 x10^3/uL (1.8-7.7) 5.9 x10^3/uL (1.8-7.7) Lymphocytes # (Auto) 1.2 x10^3/uL (1.0-4.8) 1.5 x10^3/uL (1.0-4.8) Monocytes # (Auto) 1.6 x10^3/uL (0.0-1.1) 1.5 x10^3/uL (0.0-1.1) Eosinophils # (Auto) 0.0 x10^3/uL (0.0-0.7) 0.0 x10^3/uL (0.0-0.7) Basophils # (Auto) 0.1 x10^3/uL (0.0-0.2) 0.0 x10^3/uL (0.0-0.2) Sodium Level 135 mmol/L (136-145) 136 mmol/L (136-145) Potassium Level 3.7 mmol/L (3.5-5.1) 3.5 mmol/L (3.5-5.1) Chloride Level 100 mmol/L (98-107) 102 mmol/L (98-107) Carbon Dioxide Level 27 mmol/L (21-32) 24 mmol/L (21-32) Anion Gap 8 (6-14) 10 (6-14) Blood Urea Nitrogen 34 mg/dL (7-20) 23 mg/dL (7-20) Creatinine 2.1 mg/dL (0.6-1.0) 1.7 mg/dL (0.6-1.0) Estimated GFR (Cockcroft-Gault) 30.3 38.7 BUN/Creatinine Ratio 16 (6-20) 14 (6-20) Glucose Level 107 mg/dL (70-99) 102 mg/dL (70-99) Calcium Level 9.5 mg/dL (8.5-10.1) 8.8 mg/dL (8.5-10.1) Total Bilirubin 0.2 mg/dL (0.2-1.0) 0.2 mg/dL (0.2-1.0) Aspartate Amino Transf (AST/SGOT) 18 U/L (15-37) 14 U/L (15-37) Alanine Aminotransferase (ALT/SGPT) 16 U/L (14-59) 14 U/L (14-59) Alkaline Phosphatase 112 U/L (46-116) 91 U/L (46-116) Troponin I Quantitative < 0.017 ng/mL (0.000-0.055) Total Protein 9.7 g/dL (6.4-8.2) 7.8 g/dL (6.4-8.2) Albumin 3.2 g/dL (3.4-5.0) 2.5 g/dL (3.4-5.0) Albumin/Globulin Ratio 0.5 (1.0-1.7) 0.5 (1.0-1.7) Lipase 173 U/L (73-393) Laboratory Tests Test 11/17/20 15:40 11/17/20 16:11 11/18/20 07:00 Urine Collection Type Unknown Urine Color Brown Urine Clarity Turbid Urine pH (<5.0-8.0) Urine Specific [place] (1.000-1.030) Urine Protein mg/dL (NEG-TRACE) Urine Glucose (UA) mg/dL (NEG) Urine Ketones (Stick) mg/dL (NEG) Urine Blood (NEG) Urine Nitrite (NEG) Urine Bilirubin (NEG) Urine Urobilinogen Dipstick mg/dL (0.2 mg/dL) Urine Leukocyte Esterase (NEG) Urine RBC Tntc /HPF (0-2) Urine WBC 5-10 /HPF (0-4) Urine Squamous Epithelial Cells Many /LPF Urine Bacteria Many /HPF (0-FEW) Urine Mucus Marked /LPF Urine Test Negative (NEG) Urine Opiates Screen Neg (NEG) Urine Methadone Screen Neg (NEG) Urine Barbiturates Neg (NEG) Urine Phencyclidine Screen Neg (NEG) Urine Amphetamine/Methamphetamine Neg (NEG) Urine Benzodiazepines Screen Neg (NEG) Urine Cocaine Screen Neg (NEG) Urine Cannabinoids Screen Neg (NEG) Urine Ethyl Alcohol Neg (NEG) White Blood Count 10.8 x10^3/uL (4.0-11.0) 8.9 x10^3/uL (4.0-11.0) Red Blood Count 3.57 x10^6/uL (3.50-5.40) 2.93 x10^6/uL (3.50-5.40) Hemoglobin 10.7 g/dL (12.0-15.5) 8.9 g/dL (12.0-15.5) Hematocrit 31.6 % (36.0-47.0) 26.0 % (36.0-47.0) Mean Corpuscular Volume 89 fL (79-100) 89 fL (79-100) Mean Corpuscular Hemoglobin 30 pg (25-35) 30 pg (25-35) Mean Corpuscular Hemoglobin Concent 34 g/dL (31-37) 34 g/dL (31-37) Red Cell Distribution Width 15.3 % (11.5-14.5) 15.2 % (11.5-14.5) Platelet Count 264 x10^3/uL (140-400) 239 x10^3/uL (140-400) Neutrophils (%) (Auto) 74 % (31-73) 66 % (31-73) Lymphocytes (%) (Auto) 11 % (24-48) 17 % (24-48) Monocytes (%) (Auto) 15 % (0-9) 17 % (0-9) Eosinophils (%) (Auto) 0 % (0-3) 0 % (0-3) Basophils (%) (Auto) 1 % (0-3) 1 % (0-3) Neutrophils # (Auto) 8.0 x10^3/uL (1.8-7.7) 5.9 x10^3/uL (1.8-7.7) Lymphocytes # (Auto) 1.2 x10^3/uL (1.0-4.8) 1.5 x10^3/uL (1.0-4.8) Monocytes # (Auto) 1.6 x10^3/uL (0.0-1.1) 1.5 x10^3/uL (0.0-1.1) Eosinophils # (Auto) 0.0 x10^3/uL (0.0-0.7) 0.0 x10^3/uL (0.0-0.7) Basophils # (Auto) 0.1 x10^3/uL (0.0-0.2) 0.0 x10^3/uL (0.0-0.2) Sodium Level 135 mmol/L (136-145) 136 mmol/L (136-145) Potassium Level 3.7 mmol/L (3.5-5.1) 3.5 mmol/L (3.5-5.1) Chloride Level 100 mmol/L (98-107) 102 mmol/L (98-107) Carbon Dioxide Level 27 mmol/L (21-32) 24 mmol/L (21-32) Anion Gap 8 (6-14) 10 (6-14) Blood Urea Nitrogen 34 mg/dL (7-20) 23 mg/dL (7-20) Creatinine 2.1 mg/dL (0.6-1.0) 1.7 mg/dL (0.6-1.0) Estimated GFR (Cockcroft-Gault) 30.3 38.7 BUN/Creatinine Ratio 16 (6-20) 14 (6-20) Glucose Level 107 mg/dL (70-99) 102 mg/dL (70-99) Calcium Level 9.5 mg/dL (8.5-10.1) 8.8 mg/dL (8.5-10.1) Total Bilirubin 0.2 mg/dL (0.2-1.0) 0.2 mg/dL (0.2-1.0) Aspartate Amino Transf (AST/SGOT) 18 U/L (15-37) 14 U/L (15-37) Alanine Aminotransferase (ALT/SGPT) 16 U/L (14-59) 14 U/L (14-59) Alkaline Phosphatase 112 U/L (46-116) 91 U/L (46-116) Troponin I Quantitative < 0.017 ng/mL (0.000-0.055) Total Protein 9.7 g/dL (6.4-8.2) 7.8 g/dL (6.4-8.2) Albumin 3.2 g/dL (3.4-5.0) 2.5 g/dL (3.4-5.0) Albumin/Globulin Ratio 0.5 (1.0-1.7) 0.5 (1.0-1.7) Lipase 173 U/L (73-393) Medications Current Medications Sodium Chloride 1,000 ml @ 1,000 mls/hr Q1H IV Last administered on 11/17/20 16:19; Start 11/17/20 at 15:45; Stop 11/17/20 at 16:44; Status DC Ondansetron HCl (Zofran) 4 mg 1X ONCE IVP Last administered on 11/17/20at 16:20; Start 11/17/20 at 15:45; Stop 11/17/20 at 15:46; Status DC Famotidine (Pepcid Vial) 20 mg 1X ONCE IVP Last administered on 11/17/20 16:20; Start 11/17/20 at 15:45; Stop 11/17/20 at 15:46; Status DC Sodium Chloride 1,000 ml @ 1,000 mls/hr 1X ONCE IV Last administered on at 16:20; Start 11/17/20 at 15:45; Stop 11/17/20 at 16:44; Status DC Ceftriaxone Sodium (Rocephin) 1 gm 1X ONCE IVP Last administered on 11/17/20at 18:28; Start 11/17/20 at 16:45; Stop 11/17/20 at 16:46; Status DC Ondansetron HCl (Zofran) 4 mg PRN Q8HRS PRN IV NAUSEA/VOMITING Last administered on 11/18/20at 03:22; Start 11/17/20 at 18:30; Stop 11/18/20 at 18:29 Acetaminophen (Tylenol) 650 mg PRN Q6HRS PRN PO TEMP > 100.3'F Last administered on 11/18/20at 03:23; Start 11/18/20 at 03:15 Active Scripts Active Zithromax (Azithromycin) 250 Mg Tablet 1 Pkg PO UD Vitals/I & O Vital Sign - Last 24 Hours 11/17/20 11/17/20 11/17/20 11/17/20 15:00 15:30 15:37 15:51 Temp 98.2 98.8 98.2 98.8 Pulse 120 113 114 106 Resp 22 20 20 20 B/P (MAP) 120/79 (93) 126/74 (91) 126/74 (91) 112/71 (85) Pulse Ox 97 96 96 96 O2 Delivery Room Air 11/17/20 11/17/20 11/17/20 11/17/20 16:21 16:51 17:21 17:51 Pulse 100 90 90 88 Resp 20 20 20 20 B/P (MAP) 112/69 (83) 116/63 (80) 113/64 (80) 110/63 (79) Pulse Ox 96 95 97 97 O2 Delivery Room Air 11/17/20 11/17/20 11/17/20 11/17/20 18:21 18:51 19:21 19:51 Pulse 86 92 90 96 Resp 16 16 16 16 B/P (MAP) 107/65 (79) 110/72 (85) 93/55 (68) 103/57 (72) Pulse Ox 98 98 97 97 O2 Delivery Room Air 11/17/20 11/17/20 11/17/20 11/17/20 20:21 20:51 21:26 22:00 Pulse 88 90 94 Resp 16 16 16 B/P (MAP) 99/54 (69) 106/58 (74) 111/63 (79) Pulse Ox 97 97 97 O2 Delivery Room Air Room Air Room Air 11/17/20 11/18/20 11/18/20 22:49 03:06 07:00 Temp 100.4 101.4 99.1 100.4 101.4 99.1 Pulse 91 97 78 Resp 18 18 18 B/P (MAP) 119/71 (87) 118/57 (77) 108/63 (78) Pulse Ox 96 95 96 O2 Delivery Room Air Room Air Room Air Intake and Output 11/17/20 11/17/20 11/18/20 15:00 23:00 07:00 Intake Total 2000 ml 200 ml Output Total 400 ml Balance 2000 ml -200 ml Justicifation of Admission Dx: Justifications for Admission: Justification of Admission Dx: Yes Sepsis: Dehydration ALEIDA KNIGHT MD Nov 18, 2020 09:57
--- NOTE | 2020-11-18 10:01 | PDOC2 ---
CONSULT Date of Consult Date of Consult DATE: 11/18/20 TIME: 10:01 Reason for Consult Reason for Consult: LEXX Source Source: Chart review, Patient History of Present Illness Reason for Visit: Pt is a 50-year-old female with history of HIV for 17 yrs, presented with chronic intermittent nausea, vomiting for past few days prior to admission along with dark urine and weakness. She had some diarrhea before presentation . none since admission. NO blood in stool or melena. The patient has been on current regimen for HIV since 2017. She reports she has not been able to keep the meds down since past few days- her last med dose was on . She denies HTN/DM. Denies any dysuria, hematuria. No F/C. No Cough, CP or SOB. Denies use of NSAID's. No Hx od Kidney stones According to the patient, her CD4 and HIV viral load have been stable on this regimen. Past Medical History Past Medical History HIV, intermittent nausea and vomiting for a couple of months. Family History Family History Non contributory Social History Social History Denies smoking, ETOH, or illicit drug use. 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 Current Problem List Problem List Problems Medical Problems: (1) Acute kidney injury Status: Acute Current Medications Current Medications Current Medications Sodium Chloride 1,000 ml @ 1,000 mls/hr Q1H IV Last administered on 11/17/20at 16:19; Start 11/17/20 at 15:45; Stop 11/17/20 at 16:44; Status DC Ondansetron HCl (Zofran) 4 mg 1X ONCE IVP Last administered on 11/17/20at 16:20; Start 11/17/20 at 15:45; Stop 11/17/20 at 15:46; Status DC Famotidine (Pepcid Vial) 20 mg 1X ONCE IVP Last administered on 11/17/20at 16:20; Start 11/17/20 at 15:45; Stop 11/17/20 at 15:46; Status DC Sodium Chloride 1,000 ml @ 1,000 mls/hr 1X ONCE IV Last administered on 11/17/20at 16:20; Start 11/17/20 at 15:45; Stop 11/17/20 at 16:44; Status DC Ceftriaxone Sodium (Rocephin) 1 gm 1X ONCE IVP Last administered on 11/17/20at 18:28; Start 11/17/20 at 16:45; Stop 11/17/20 at 16:46; Status DC Ondansetron HCl (Zofran) 4 mg PRN Q8HRS PRN IV NAUSEA/VOMITING Last administered on 11/18/20at 03:22; Start 11/17/20 at 18:30; Stop 11/18/20 at 18:29 Acetaminophen (Tylenol) 650 mg PRN Q6HRS PRN PO TEMP > 100.3'F Last administered on 11/18/20at 03:23; Start 11/18/20 at 03:15 Active Scripts Active Zithromax (Azithromycin) 250 Mg Tablet 1 Pkg PO UD Allergies Allergies: Coded Allergies: No Known Drug Allergies (Unverified , 07/17/19) ROS Review of System Negative except for above in HPI. Physical Exam Physical Exam GENERAL: no acute distress. HEENT: Anicteric. Oral mucosa moist. NECK: Supple, no JVD. LUNGS: Clear bilaterally. Non labored HEART: S1, S2. ABDOMEN: Soft, nontender, nondistended, EXTREMITIES: No edema, DERMATOLOGIC: Warm, dry. No generalized rash. NEUROLOGIC: Alert and oriented x 3, grossly nonfocal. PSYCHIATRIC: Cooperative, appropriate mood and affect No [place], No SP or CVA tenderness Vital Signs Vital Signs Date Time Temp Pulse Resp B/P (MAP) Pulse Ox O2 Delivery O2 Flow Rate FiO2 11/18/20 07:00 99.1 78 18 108/63 (78) 96 Room Air 99.1 Assessment & Plan LEXX -Pr-renal, Vomiting , diarrhea, Improving renal function IVF, hydration , supportive care, I/O, avoid nephrotoxins,Dw Nursing HIV - on meds Nausea, vomiting and diarrhea.- diarrhea resolved , pt reports feeling better CKD stage 3- elevated Cr in 2019 per [facility] records. Pt states not aware of Dx of CKD Hematuria- r/o UTI, Check Renal US . Repeat UA Anemia- Fe Def, su per Primary Labs Labs Laboratory Tests Test 11/17/20 15:40 11/17/20 16:11 11/18/20 07:00 Urine Collection Type Unknown Urine Color Brown Urine Clarity Turbid Urine pH (<5.0-8.0) Urine Specific [place] (1.000-1.030) Urine Protein mg/dL (NEG-TRACE) Urine Glucose (UA) mg/dL (NEG) Urine Ketones (Stick) mg/dL (NEG) Urine Blood (NEG) Urine Nitrite (NEG) Urine Bilirubin (NEG) Urine Urobilinogen Dipstick mg/dL (0.2 mg/dL) Urine Leukocyte Esterase (NEG) Urine RBC Tntc /HPF (0-2) Urine WBC 5-10 /HPF (0-4) Urine Squamous Epithelial Cells Many /LPF Urine Bacteria Many /HPF (0-FEW) Urine Mucus Marked /LPF Urine Test Negative (NEG) Urine Opiates Screen Neg (NEG) Urine Methadone Screen Neg (NEG) Urine Barbiturates Neg (NEG) Urine Phencyclidine Screen Neg (NEG) Urine Amphetamine/Methamphetamine Neg (NEG) Urine Benzodiazepines Screen Neg (NEG) Urine Cocaine Screen Neg (NEG) Urine Cannabinoids Screen Neg (NEG) Urine Ethyl Alcohol Neg (NEG) White Blood Count 10.8 x10^3/uL (4.0-11.0) 8.9 x10^3/uL (4.0-11.0) Red Blood Count 3.57 x10^6/uL (3.50-5.40) 2.93 x10^6/uL (3.50-5.40) Hemoglobin 10.7 g/dL (12.0-15.5) 8.9 g/dL (12.0-15.5) Hematocrit 31.6 % (36.0-47.0) 26.0 % (36.0-47.0) Mean Corpuscular Volume 89 fL (79-100) 89 fL (79-100) Mean Corpuscular Hemoglobin 30 pg (25-35) 30 pg (25-35) Mean Corpuscular Hemoglobin Concent 34 g/dL (31-37) 34 g/dL (31-37) Red Cell Distribution Width 15.3 % (11.5-14.5) 15.2 % (11.5-14.5) Platelet Count 264 x10^3/uL (140-400) 239 x10^3/uL (140-400) Neutrophils (%) (Auto) 74 % (31-73) 66 % (31-73) Lymphocytes (%) (Auto) 11 % (24-48) 17 % (24-48) Monocytes (%) (Auto) 15 % (0-9) 17 % (0-9) Eosinophils (%) (Auto) 0 % (0-3) 0 % (0-3) Basophils (%) (Auto) 1 % (0-3) 1 % (0-3) Neutrophils # (Auto) 8.0 x10^3/uL (1.8-7.7) 5.9 x10^3/uL (1.8-7.7) Lymphocytes # (Auto) 1.2 x10^3/uL (1.0-4.8) 1.5 x10^3/uL (1.0-4.8) Monocytes # (Auto) 1.6 x10^3/uL (0.0-1.1) 1.5 x10^3/uL (0.0-1.1) Eosinophils # (Auto) 0.0 x10^3/uL (0.0-0.7) 0.0 x10^3/uL (0.0-0.7) Basophils # (Auto) 0.1 x10^3/uL (0.0-0.2) 0.0 x10^3/uL (0.0-0.2) Sodium Level 135 mmol/L (136-145) 136 mmol/L (136-145) Potassium Level 3.7 mmol/L (3.5-5.1) 3.5 mmol/L (3.5-5.1) Chloride Level 100 mmol/L (98-107) 102 mmol/L (98-107) Carbon Dioxide Level 27 mmol/L (21-32) 24 mmol/L (21-32) Anion Gap 8 (6-14) 10 (6-14) Blood Urea Nitrogen 34 mg/dL (7-20) 23 mg/dL (7-20) Creatinine 2.1 mg/dL (0.6-1.0) 1.7 mg/dL (0.6-1.0) Estimated GFR (Cockcroft-Gault) 30.3 38.7 BUN/Creatinine Ratio 16 (6-20) 14 (6-20) Glucose Level 107 mg/dL (70-99) 102 mg/dL (70-99) Calcium Level 9.5 mg/dL (8.5-10.1) 8.8 mg/dL (8.5-10.1) Total Bilirubin 0.2 mg/dL (0.2-1.0) 0.2 mg/dL (0.2-1.0) Aspartate Amino Transf (AST/SGOT) 18 U/L (15-37) 14 U/L (15-37) Alanine Aminotransferase (ALT/SGPT) 16 U/L (14-59) 14 U/L (14-59) Alkaline Phosphatase 112 U/L (46-116) 91 U/L (46-116) Troponin I Quantitative < 0.017 ng/mL (0.000-0.055) Total Protein 9.7 g/dL (6.4-8.2) 7.8 g/dL (6.4-8.2) Albumin 3.2 g/dL (3.4-5.0) 2.5 g/dL (3.4-5.0) Albumin/Globulin Ratio 0.5 (1.0-1.7) 0.5 (1.0-1.7) Lipase 173 U/L (73-393) Laboratory Tests Test 11/17/20 15:40 11/17/20 16:11 11/18/20 07:00 Urine Collection Type Unknown Urine Color Brown Urine Clarity Turbid Urine pH (<5.0-8.0) Urine Specific [place] (1.000-1.030) Urine Protein mg/dL (NEG-TRACE) Urine Glucose (UA) mg/dL (NEG) Urine Ketones (Stick) mg/dL (NEG) Urine Blood (NEG) Urine Nitrite (NEG) Urine Bilirubin (NEG) Urine Urobilinogen Dipstick mg/dL (0.2 mg/dL) Urine Leukocyte Esterase (NEG) Urine RBC Tntc /HPF (0-2) Urine WBC 5-10 /HPF (0-4) Urine Squamous Epithelial Cells Many /LPF Urine Bacteria Many /HPF (0-FEW) Urine Mucus Marked /LPF Urine Test Negative (NEG) Urine Opiates Screen Neg (NEG) Urine Methadone Screen Neg (NEG) Urine Barbiturates Neg (NEG) Urine Phencyclidine Screen Neg (NEG) Urine Amphetamine/Methamphetamine Neg (NEG) Urine Benzodiazepines Screen Neg (NEG) Urine Cocaine Screen Neg (NEG) Urine Cannabinoids Screen Neg (NEG) Urine Ethyl Alcohol Neg (NEG) White Blood Count 10.8 x10^3/uL (4.0-11.0) 8.9 x10^3/uL (4.0-11.0) Red Blood Count 3.57 x10^6/uL (3.50-5.40) 2.93 x10^6/uL (3.50-5.40) Hemoglobin 10.7 g/dL (12.0-15.5) 8.9 g/dL (12.0-15.5) Hematocrit 31.6 % (36.0-47.0) 26.0 % (36.0-47.0) Mean Corpuscular Volume 89 fL (79-100) 89 fL (79-100) Mean Corpuscular Hemoglobin 30 pg (25-35) 30 pg (25-35) Mean Corpuscular Hemoglobin Concent 34 g/dL (31-37) 34 g/dL (31-37) Red Cell Distribution Width 15.3 % (11.5-14.5) 15.2 % (11.5-14.5) Platelet Count 264 x10^3/uL (140-400) 239 x10^3/uL (140-400) Neutrophils (%) (Auto) 74 % (31-73) 66 % (31-73) Lymphocytes (%) (Auto) 11 % (24-48) 17 % (24-48) Monocytes (%) (Auto) 15 % (0-9) 17 % (0-9) Eosinophils (%) (Auto) 0 % (0-3) 0 % (0-3) Basophils (%) (Auto) 1 % (0-3) 1 % (0-3) Neutrophils # (Auto) 8.0 x10^3/uL (1.8-7.7) 5.9 x10^3/uL (1.8-7.7) Lymphocytes # (Auto) 1.2 x10^3/uL (1.0-4.8) 1.5 x10^3/uL (1.0-4.8) Monocytes # (Auto) 1.6 x10^3/uL (0.0-1.1) 1.5 x10^3/uL (0.0-1.1) Eosinophils # (Auto) 0.0 x10^3/uL (0.0-0.7) 0.0 x10^3/uL (0.0-0.7) Basophils # (Auto) 0.1 x10^3/uL (0.0-0.2) 0.0 x10^3/uL (0.0-0.2) Sodium Level 135 mmol/L (136-145) 136 mmol/L (136-145) Potassium Level 3.7 mmol/L (3.5-5.1) 3.5 mmol/L (3.5-5.1) Chloride Level 100 mmol/L (98-107) 102 mmol/L (98-107) Carbon Dioxide Level 27 mmol/L (21-32) 24 mmol/L (21-32) Anion Gap 8 (6-14) 10 (6-14) Blood Urea Nitrogen 34 mg/dL (7-20) 23 mg/dL (7-20) Creatinine 2.1 mg/dL (0.6-1.0) 1.7 mg/dL (0.6-1.0) Estimated GFR (Cockcroft-Gault) 30.3 38.7 BUN/Creatinine Ratio 16 (6-20) 14 (6-20) Glucose Level 107 mg/dL (70-99) 102 mg/dL (70-99) Calcium Level 9.5 mg/dL (8.5-10.1) 8.8 mg/dL (8.5-10.1) Total Bilirubin 0.2 mg/dL (0.2-1.0) 0.2 mg/dL (0.2-1.0) Aspartate Amino Transf (AST/SGOT) 18 U/L (15-37) 14 U/L (15-37) Alanine Aminotransferase (ALT/SGPT) 16 U/L (14-59) 14 U/L (14-59) Alkaline Phosphatase 112 U/L (46-116) 91 U/L (46-116) Troponin I Quantitative < 0.017 ng/mL (0.000-0.055) Total Protein 9.7 g/dL (6.4-8.2) 7.8 g/dL (6.4-8.2) Albumin 3.2 g/dL (3.4-5.0) 2.5 g/dL (3.4-5.0) Albumin/Globulin Ratio 0.5 (1.0-1.7) 0.5 (1.0-1.7) Lipase 173 U/L (73-393) Review All relevant outside records, renal labs, imaging studies, telemetry/EKG's were reviewed. Images Images Chest x-ray: No acute cardiopulmonary abnormality. CORWIN GRANDA MD Nov 18, 2020 10:01
[2020-11-18] MEDS ORDERED: IV NORMAL SALINE 1000ML BAG 1,000 ML IV ONE (10:15)
[2020-11-18 11:00] VITALS: BP 103/59
--- NOTE | 2020-11-18 11:16 | RAD ---
Examination: Ultrasound abdomen complete HISTORY: History of nausea, vomiting, renal failure COMPARISON: None available FINDINGS: The liver length measures 15.5 cm. The gallbladder is contracted. The common bile duct measures 4 mm in transverse dimension. The right kidney measures 10.3 x 4.2 x 4.6 cm . The left kidney measures 10. 5 x 5.3 x 5.1 cm. Echogenic appearing bilateral kidneys. The visualized pancreas grossly appears unre markable. The visualized aorta, IVC within normal limits of dimension. The urinary bladder is mildly distended. IMPRESSION: 1. Echogenic appearing bilateral kidneys likely medical renal disease. 2. Contracted appearance of the gallbladder. Electronically signed by: Lorenzo Morales MD (11/18/2020 11:14 AM) [id number]
--- NOTE | 2020-11-18 11:19 | CONS ---
DATE OF CONSULTATION: 11/18/2020 REFERRING PHYSICIAN: Mirian Ray DO REASON FOR CONSULTATION: HIV. HISTORY OF PRESENT ILLNESS: A 50-year-old female with history of HIV for 17 yrs, on Prescobix and Descovy through Dr. Sandi Mcfadden presented with chronic intermittent nausea, vomiting for a couple of days prior to admission along with dark urine and weakness. She had some diarrhea before presentation . none since admission. NO blood in stool or melena. The patient has been on current regimen for HIV through Dr. Sandi Mcfadden since 2017. According to the patient, her CD4 and HIV viral load have been stable on this regimen. The patient denies any history of OI. Denies any history of other STDs. When she came to the ER, her white count was normal. Creatinine was 2.1. UA showed too numerous to count rbc's, 5-10 wbc's. ID consult has been requested for further evaluation of HIV. Urine hCG is negative. Previous urine culture from 07/2019 is negative. The patient denies any history of sick contact, recent travel, new medications. PAST MEDICAL HISTORY: HIV, intermittent nausea and vomiting for a couple of months. CURRENT MEDICATIONS: Zofran, famotidine, ceftriaxone, acetaminophen. ALLERGIES: No known drug allergies. SOCIAL HISTORY: Denies smoking, ETOH, or illicit drug use. 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 REVIEW OF SYSTEMS: Negative except for above in HPI. PHYSICAL EXAMINATION: VITAL SIGNS: Temperature 99, T-max 101.4, pulse 78, respiratory rate 18, blood pressure 108/63, oxygen saturation 96% on room air. GENERAL: Alert, oriented x 3, pleasant female, lying in bed comfortably, in no acute distress. HEENT: Normocephalic, atraumatic. Anicteric. No thrush. Oral mucosa moist. Dentition fair. NECK: Supple, no JVD. LUNGS: Clear bilaterally. No wheezing. HEART: S1, S2. No gallops or murmurs. ABDOMEN: Soft, nontender, nondistended, no rebound, no guarding. EXTREMITIES: No edema, no cyanosis. DERMATOLOGIC: Warm, dry. No generalized rash. NEUROLOGIC: Alert and oriented x 3, grossly nonfocal. PSYCHIATRIC: Cooperative, appropriate mood and affect. LABORATORY DATA: WBC 8.9, hemoglobin 8.9, hematocrit 26, platelets 239. Sodium 136; potassium 3.5; chloride 102; bicarb 24; BUN 22; creatinine 1.7, was 2.1; glucose 102; albumin 2.5; lipase 173. UA shows 5-10 wbc's, rbc's too numerous to count. Beta hCG negative. MICROBIOLOGY: Blood culture and urine culture pending. IMAGING: Chest x-ray: No acute cardiopulmonary abnormality. IMPRESSION: 1. Human immunodeficiency virus, on Prescobix and Descovy through Dr. Sandi Mcfadden, treatment on hold for now due to nausea 2. Nausea, vomiting and diarrhea. Latter resolved 3. Acute kidney injury, likely dehydration. 4. Hematuria. 5. Anemia. RECOMMENDATIONS: 1. Continue ceftriaxone. 2. Awaiting renal evaluation. 3. Follow up cultures and lab. 4. Obtain HIV viral load,cryptococcal ag, hepatitis panel, RPR. 5. Continue supportive care. 6. Maintain aspiration precaution. 7. Will consult GI 8. Obtain abdominal ultrasound 7. Please obtain outside medical records from Dr. Sandi Mcfadden for evaluation. Thank you for allowing me to participate in this patient's care. If you have any questions, do not hesitate to contact me. YUSEF HERRERA MD DR: GORDON/doyle JOB#: [id number] / [id number] LONNY
--- NOTE | 2020-11-18 11:35 | PDOC2 ---
GI CONSULT Date of Service: DATE: 11/18/20 TIME: 11:24 Reason For Consult: HIV w/ chronic intermittent nausea and vomiting HPI: HPI: Pleasant 50 y/o female admitted through ER. Three instances of fatigue/weakness, fever/chills, sort throat, and n/v since July. This episode began on . Unable to keep food/liquids down since Monday. Feels like she might have acid reflux - "burning" in chest and stomach. Sometimes feels dizzy after not eating for a few days. Tried changing diet - has avoided coffee and tried "clean eating" (says no sugar and "nothing crazy") for about 1 month - was surprised when symptoms recurred. No dysphagia, hematemesis, abd pain, diarrhea, constipation, hematochezia, or melena. Has lost about 10 pounds since altering diet. No previous EGD or colonoscopy. No GB, liver, pancreas, or PUD history. No NSAIDs. H/o HIV - on medication per Dr. Dorothy Mcfadden - started in 2017. Tolerated eggs and potatoes this morning and was so glad. Reports negative COVID tests in Aug and Sep. PMH: PMH: HIV , tonsillectomy FH: Family History: Other (mother - "heart issues") Social History: Smoke: No ALCOHOL: none Drugs: None ROS: GEN: +fatigue HEENT: +sore throat CV: Denies chest pain RESP: Denies shortness of air, cough GI: Per HPI : Denies hematuria, dysuria ENDO: +weight loss NEURO: Denies confusion, dizziness MSK: +weakness SKIN: Denies jaundice, pruritus Vitals: Vitals: Vital Signs Date Time Temp Pulse Resp B/P (MAP) Pulse Ox O2 Delivery O2 Flow Rate FiO2 11/18/20 11:00 99.6 79 18 103/59 (74) 97 Room Air 99.6 Labs: Labs: Laboratory Tests Test 11/17/20 15:40 11/17/20 16:11 11/18/20 07:00 Urine Collection Type Unknown Urine Color Brown Urine Clarity Turbid Urine pH (<5.0-8.0) Urine Specific [place] (1.000-1.030) Urine Protein mg/dL (NEG-TRACE) Urine Glucose (UA) mg/dL (NEG) Urine Ketones (Stick) mg/dL (NEG) Urine Blood (NEG) Urine Nitrite (NEG) Urine Bilirubin (NEG) Urine Urobilinogen Dipstick mg/dL (0.2 mg/dL) Urine Leukocyte Esterase (NEG) Urine RBC Tntc /HPF (0-2) Urine WBC 5-10 /HPF (0-4) Urine Squamous Epithelial Cells Many /LPF Urine Bacteria Many /HPF (0-FEW) Urine Mucus Marked /LPF Urine Test Negative (NEG) Urine Opiates Screen Neg (NEG) Urine Methadone Screen Neg (NEG) Urine Barbiturates Neg (NEG) Urine Phencyclidine Screen Neg (NEG) Urine Amphetamine/Methamphetamine Neg (NEG) Urine Benzodiazepines Screen Neg (NEG) Urine Cocaine Screen Neg (NEG) Urine Cannabinoids Screen Neg (NEG) Urine Ethyl Alcohol Neg (NEG) White Blood Count 10.8 x10^3/uL (4.0-11.0) 8.9 x10^3/uL (4.0-11.0) Red Blood Count 3.57 x10^6/uL (3.50-5.40) 2.93 x10^6/uL (3.50-5.40) Hemoglobin 10.7 g/dL (12.0-15.5) 8.9 g/dL (12.0-15.5) Hematocrit 31.6 % (36.0-47.0) 26.0 % (36.0-47.0) Mean Corpuscular Volume 89 fL (79-100) 89 fL (79-100) Mean Corpuscular Hemoglobin 30 pg (25-35) 30 pg (25-35) Mean Corpuscular Hemoglobin Concent 34 g/dL (31-37) 34 g/dL (31-37) Red Cell Distribution Width 15.3 % (11.5-14.5) 15.2 % (11.5-14.5) Platelet Count 264 x10^3/uL (140-400) 239 x10^3/uL (140-400) Neutrophils (%) (Auto) 74 % (31-73) 66 % (31-73) Lymphocytes (%) (Auto) 11 % (24-48) 17 % (24-48) Monocytes (%) (Auto) 15 % (0-9) 17 % (0-9) Eosinophils (%) (Auto) 0 % (0-3) 0 % (0-3) Basophils (%) (Auto) 1 % (0-3) 1 % (0-3) Neutrophils # (Auto) 8.0 x10^3/uL (1.8-7.7) 5.9 x10^3/uL (1.8-7.7) Lymphocytes # (Auto) 1.2 x10^3/uL (1.0-4.8) 1.5 x10^3/uL (1.0-4.8) Monocytes # (Auto) 1.6 x10^3/uL (0.0-1.1) 1.5 x10^3/uL (0.0-1.1) Eosinophils # (Auto) 0.0 x10^3/uL (0.0-0.7) 0.0 x10^3/uL (0.0-0.7) Basophils # (Auto) 0.1 x10^3/uL (0.0-0.2) 0.0 x10^3/uL (0.0-0.2) Sodium Level 135 mmol/L (136-145) 136 mmol/L (136-145) Potassium Level 3.7 mmol/L (3.5-5.1) 3.5 mmol/L (3.5-5.1) Chloride Level 100 mmol/L (98-107) 102 mmol/L (98-107) Carbon Dioxide Level 27 mmol/L (21-32) 24 mmol/L (21-32) Anion Gap 8 (6-14) 10 (6-14) Blood Urea Nitrogen 34 mg/dL (7-20) 23 mg/dL (7-20) Creatinine 2.1 mg/dL (0.6-1.0) 1.7 mg/dL (0.6-1.0) Estimated GFR (Cockcroft-Gault) 30.3 38.7 BUN/Creatinine Ratio 16 (6-20) 14 (6-20) Glucose Level 107 mg/dL (70-99) 102 mg/dL (70-99) Calcium Level 9.5 mg/dL (8.5-10.1) 8.8 mg/dL (8.5-10.1) Total Bilirubin 0.2 mg/dL (0.2-1.0) 0.2 mg/dL (0.2-1.0) Aspartate Amino Transf (AST/SGOT) 18 U/L (15-37) 14 U/L (15-37) Alanine Aminotransferase (ALT/SGPT) 16 U/L (14-59) 14 U/L (14-59) Alkaline Phosphatase 112 U/L (46-116) 91 U/L (46-116) Troponin I Quantitative < 0.017 ng/mL (0.000-0.055) Total Protein 9.7 g/dL (6.4-8.2) 7.8 g/dL (6.4-8.2) Albumin 3.2 g/dL (3.4-5.0) 2.5 g/dL (3.4-5.0) Albumin/Globulin Ratio 0.5 (1.0-1.7) 0.5 (1.0-1.7) Lipase 173 U/L (73-393) C-Reactive Protein, Quantitative 78.3 mg/L (0-3.3) Allergies: Coded Allergies: No Known Drug Allergies (Unverified , 07/17/19) Medications: Current Medications Medications (Trade) Dose Ordered Sig/Ojel Route PRN Reason Start Time Stop Time Status Last Admin Dose Admin Sodium Chloride 1,000 ml @ 1,000 mls/hr Q1H IV 11/17/20 15:45 11/17/20 16:44 DC 11/17/20 16:19 Ondansetron HCl (Zofran) 4 mg 1X ONCE IVP 11/17/20 15:45 11/17/20 15:46 DC 11/17/20 16:20 Famotidine (Pepcid Vial) 20 mg 1X ONCE IVP 11/17/20 15:45 11/17/20 15:46 DC 11/17/20 16:20 Sodium Chloride 1,000 ml @ 1,000 mls/hr 1X ONCE IV 11/17/20 15:45 11/17/20 16:44 DC 11/17/20 16:20 Ceftriaxone Sodium (Rocephin) 1 gm 1X ONCE IVP 11/17/20 16:45 11/17/20 16:46 DC 11/17/20 18:28 Ondansetron HCl (Zofran) 4 mg PRN Q8HRS PRN IV NAUSEA/VOMITING 11/17/20 18:30 11/18/20 18:29 11/18/20 03:22 Acetaminophen (Tylenol) 650 mg PRN Q6HRS PRN PO TEMP > 100.3'F 11/18/20 03:15 11/18/20 03:23 Sodium Chloride 1,000 ml @ 125 mls/hr 1X ONCE IV 11/18/20 10:15 11/18/20 18:14 11/18/20 11:20 Imaging: Imaging: Abd US FINDINGS: The liver length measures 15.5 cm. The gallbladder is contracted. The common bile duct measures 4 mm in transverse dimension. The right kidney measures 10.3 x 4.2 x 4.6 cm . The left kidney measures 10.5 x 5.3 x 5.1 cm. Echogenic appearing bilateral kidneys. The visualized pancreas grossly appears unremarkable. The visualized aorta, IVC within normal limits of dimension. The urinary bladder is mildly distended. IMPRESSION: 1. Echogenic appearing bilateral kidneys likely medical renal disease. 2. Contracted appearance of the gallbladder. CXR IMPRESSION: No acute cardiopulmonary abnormality. PE: GEN: NAD HEENT: Atraumatic, PERRL LUNGS: CTAB HEART: RRR ABD: NABS, S/ND/NT EXTREMITY: No edema SKIN: No rashes, no jaundice NEURO/PSYCH: A & O 3 A/P: A/P: Recurrent n/v, weight loss Chronic anemia, LEXX, ?UTI CRC screen - average risk HIV -- Tolerating diet today. ?GERD - start PPI QD - d/w her - PO okay if tolerates, can change to IV if needed. Follow-up in clinic - could consider outpt EGD, also due for screening colonoscopy. Will check anemia parameters for completeness. GB contracted on US - I believe US done after she ate breakfast. HUGO LAYNE Nov 18, 2020 11:35
[2020-11-18] MEDS: PANTOPRAZOLE 40 MG TABLET.DR. PO SCH (13:48)
[2020-11-18 15:00] VITALS: BP 95/52
[2020-11-18] MEDS: cefTRIAXone IV Push 1 GM VIAL. IVP SCH (17:02)
[2020-11-18 19:00] VITALS: BP 92/60
[2020-11-18] MEDS: IV NORMAL SALINE 1000ML BAG 1,000 ML IV SCH (20:50)
[2020-11-18 22:47] VITALS: BP 107/60
[2020-11-19] MEDS ORDERED: BENZOCAINE/MENTHOL LOZENGE. PO PRN (02:00)
[2020-11-19 02:18] VITALS: BP 120/60
[2020-11-19 02:36] VITALS: BP 120/60
[2020-11-19 05:08] LABS: BASO % 1 % (0-3); EOS # 0.1 x10^3/uL (0.0-0.7); EOS % 2 % (0-3); HEMATOCRIT 26.4 % (36.0-47.0); HEMOGLOBIN 8.7 g/dL (12.0-15.5); LYMPH # 1.6 x10^3/uL (1.0-4.8); LYMPH % 21 % (24-48); MEAN CORPUSCULAR HEMOGLOBIN 30 pg (25-35); MEAN CORPUSCULAR HGB CONC 33 g/dL (31-37); MEAN CORPUSCULAR VOLUME 90 fL (79-100); MONO # 1.2 x10^3/uL (0.0-1.1); MONO % 16 % (0-9); NEUT # 4.8 x10^3/uL (1.8-7.7); NEUT % 62 % (31-73); PLATELET COUNT 227 x10^3/uL (140-400); RED BLOOD COUNT 2.95 x10^6/uL (3.50-5.40); RED CELL DISTRIBUTION WIDTH 15.4 % (11.5-14.5); WHITE BLOOD COUNT 7.8 x10^3/uL (4.0-11.0)
[2020-11-19 05:37] LABS: ALBUMIN 2.3 g/dL (3.4-5.0); ALBUMIN/GLOBULIN RATIO 0.5 (1.0-1.7); CALCIUM 8.4 mg/dL (8.5-10.1); CREATININE 1.5 mg/dL (0.6-1.0); GFR 44.7; POTASSIUM 3.6 mmol/L (3.5-5.1); TOTAL BILIRUBIN 0.2 mg/dL (0.2-1.0); TOTAL PROTEIN 7.3 g/dL (6.4-8.2)
[2020-11-19 07:00] VITALS: BP 103/59
[2020-11-19] MEDS: PANTOPRAZOLE 40 MG TABLET.DR. PO SCH (08:11)
[2020-11-19] MEDS: IV NORMAL SALINE 1000ML BAG 1,000 ML IV SCH (08:18)
--- NOTE | 2020-11-19 09:19 | PDOC ---
Infectious Disease Note Subjective: Subjective Patient denies any complaints Denies fever, nausea, vomiting, diarrhea, abdominal pain Tolerated p.o. intake well Eager for discharge home today Vital Signs: Vital Signs Vital Signs Date Time Temp Pulse Resp B/P (MAP) Pulse Ox O2 Delivery O2 Flow Rate FiO2 11/19/20 07:00 98.4 69 103/59 (74) 97 Room Air 98.4 11/19/20 02:18 20 Physical Exam: PHYSICAL EXAM GEN: axox 3 female in nad HEENT: Normocephalic, atraumatic. Anicteric. No thrush. Oral mucosa moist. Dentition fair. NECK: Supple, no JVD. LUNGS: Clear bilaterally. No wheezing. HEART: S1, S2. No gallops or murmurs. ABDOMEN: Soft, nontender, nondistended, no rebound, no guarding. EXTREMITIES: No edema, no cyanosis. DERMATOLOGIC: Warm, dry. No generalized rash. NEUROLOGIC: Alert and oriented x 3, grossly nonfocal. PSYCHIATRIC: Cooperative, appropriate mood and affect. Medications: Inpatient Meds: Current Medications Medications (Trade) Dose Ordered Sig/Joel Start Time Stop Time Status Last Admin Dose Admin Acetaminophen (Tylenol) 650 mg PRN Q6HRS PRN 11/18/20 03:15 11/18/20 13:52 650 MG Ceftriaxone Sodium (Rocephin) 1 gm Q24H 11/18/20 18:00 11/18/20 17:02 1 GM Famotidine (Pepcid Vial) 20 mg 1X ONCE 11/17/20 15:45 11/17/20 15:46 DC 11/17/20 16:20 20 MG Ondansetron HCl (Zofran) 4 mg PRN Q8HRS PRN 11/17/20 18:30 11/18/20 18:29 DC 11/18/20 03:22 4 MG Pantoprazole Sodium (Protonix) 40 mg DAILYAC 11/18/20 12:30 11/19/20 08:11 40 MG Sodium Chloride 1,000 ml @ 75 mls/hr [id number] 11/18/20 19:00 11/18/20 20:50 75 MLS/HR Throat Lozenges (Cepacol Sore Throat Lozenge) 1 dustin PRN Q2HRS PRN 11/19/20 02:00 11/19/20 02:00 1 [facility] Labs: Lab Laboratory Tests Test 11/18/20 10:55 11/19/20 04:40 Lactic Acid Level 0.6 mmol/L (0.4-2.0) White Blood Count 7.8 x10^3/uL (4.0-11.0) Red Blood Count 2.95 x10^6/uL (3.50-5.40) Hemoglobin 8.7 g/dL (12.0-15.5) Hematocrit 26.4 % (36.0-47.0) Mean Corpuscular Volume 90 fL (79-100) Mean Corpuscular Hemoglobin 30 pg (25-35) Mean Corpuscular Hemoglobin Concent 33 g/dL (31-37) Red Cell Distribution Width 15.4 % (11.5-14.5) Platelet Count 227 x10^3/uL (140-400) Neutrophils (%) (Auto) 62 % (31-73) Lymphocytes (%) (Auto) 21 % (24-48) Monocytes (%) (Auto) 16 % (0-9) Eosinophils (%) (Auto) 2 % (0-3) Basophils (%) (Auto) 1 % (0-3) Neutrophils # (Auto) 4.8 x10^3/uL (1.8-7.7) Lymphocytes # (Auto) 1.6 x10^3/uL (1.0-4.8) Monocytes # (Auto) 1.2 x10^3/uL (0.0-1.1) Eosinophils # (Auto) 0.1 x10^3/uL (0.0-0.7) Basophils # (Auto) 0.0 x10^3/uL (0.0-0.2) Sodium Level 138 mmol/L (136-145) Potassium Level 3.6 mmol/L (3.5-5.1) Chloride Level 105 mmol/L (98-107) Carbon Dioxide Level 25 mmol/L (21-32) Anion Gap 8 (6-14) Blood Urea Nitrogen 16 mg/dL (7-20) Creatinine 1.5 mg/dL (0.6-1.0) Estimated GFR (Cockcroft-Gault) 44.7 BUN/Creatinine Ratio 11 (6-20) Glucose Level 97 mg/dL (70-99) Calcium Level 8.4 mg/dL (8.5-10.1) Total Bilirubin 0.2 mg/dL (0.2-1.0) Aspartate Amino Transf (AST/SGOT) 14 U/L (15-37) Alanine Aminotransferase (ALT/SGPT) 11 U/L (14-59) Alkaline Phosphatase 84 U/L (46-116) Creatine Kinase 52 U/L (26-192) Total Protein 7.3 g/dL (6.4-8.2) Albumin 2.3 g/dL (3.4-5.0) Albumin/Globulin Ratio 0.5 (1.0-1.7) Micro UC negative Objective: Assessment: 1. Human immunodeficiency virus, on Prescobix and Descovy through Dr. Sandi Mcfadden, pt has not taken them for a couple of weeks now due to nausea and vomiting Per pt her CD4 is stable and HIV VL ND at PCP's office H/O noncomplaince with ARvs in the past 2. Nausea, vomiting and diarrhea. Latter resolved.GI evaluated pt 3. Acute kidney injury, likely dehydration. 4. Hematuria. Pyuria 5. Anemia. 6. Fever etiology ??, cultures neg so far infectious serologies ordered Plan: Plan of Care Okay to discharge home from ID standpoint Cefdinir,script in chart probiotics f/u Dr Sandi Mcfadden D/W RN YUSEF HERRERA MD Nov 19, 2020 09:19
--- NOTE | 2020-11-19 09:37 | PDOC ---
DATE OF SERVICE DATE: 11/19/20 TIME: 09:35 SUBJECTIVE ROS Sates feeling much better Urine clear(prior to presentation was like ink, no blood per Pt ) OBJECTIVE Vital Signs Vital Signs Date Time Temp Pulse Resp B/P (MAP) Pulse Ox O2 Delivery O2 Flow Rate FiO2 11/19/20 07:00 98.4 69 103/59 (74) 97 Room Air 98.4 11/19/20 02:18 20 I & 0 Intake and Output 11/19/20 07:00 Intake Total 2475 ml Output Total 1400 ml Balance 1075 ml Intake Oral 850 ml IV Total 1625 ml Output Urine Total 1400 ml # Voids 2 PHYSICAL EXAM Physical Exam GENERAL: no acute distress. HEENT: Anicteric. Oral mucosa moist. NECK: Supple, no JVD. LUNGS: Clear bilaterally. Non labored HEART: S1, S2. ABDOMEN: Soft, nontender, nondistended, EXTREMITIES: No edema, DERMATOLOGIC: Warm, dry. No generalized rash. NEUROLOGIC: Alert and oriented x 3, grossly nonfocal. PSYCHIATRIC: Cooperative, appropriate mood and affect No [place], No SP or CVA tenderness DIAGNOSIS/ASSESSMENT Assessment & Plan LEXX -Pr-renal, Vomiting , diarrhea, Improving renal function Renal US RK 10.3 x 4.2 x 4.6 cm . LK 10.5 x 5.3 x 5.1 cm. Echogenic appearing bilateral kidneys supportive care, I/O, avoid nephrotoxins,Dw Nursing CKD stage 3- elevated Cr in 2019 per [facility] records. Pt states not aware of Dx of CKD HIV - on meds Nausea, vomiting and diarrhea.- diarrhea resolved , pt reports feeling better Hematuria- r/o UTI, Repeat UA Anemia- Fe Def, su per Primary COMMENT/RELEVANT DATA Meds Current Medications Medications (Trade) Dose Ordered Sig/Joel Start Time Stop Time Status Last Admin Dose Admin Acetaminophen (Tylenol) 650 mg PRN Q6HRS PRN 11/18/20 03:15 11/18/20 13:52 650 MG Ceftriaxone Sodium (Rocephin) 1 gm Q24H 11/18/20 18:00 11/18/20 17:02 1 GM Famotidine (Pepcid Vial) 20 mg 1X ONCE 11/17/20 15:45 11/17/20 15:46 DC 11/17/20 16:20 20 MG Ondansetron HCl (Zofran) 4 mg PRN Q8HRS PRN 11/17/20 18:30 11/18/20 18:29 DC 11/18/20 03:22 4 MG Pantoprazole Sodium (Protonix) 40 mg DAILYAC 11/18/20 12:30 11/19/20 08:11 40 MG Sodium Chloride 1,000 ml @ 75 mls/hr [id number] 11/18/20 19:00 11/18/20 20:50 75 MLS/HR Throat Lozenges (Cepacol Sore Throat Lozenge) 1 emily PRN Q2HRS PRN 11/19/20 02:00 11/19/20 02:00 1 EMILY Lab Laboratory Tests Test 11/18/20 10:55 11/19/20 04:40 Lactic Acid Level 0.6 mmol/L (0.4-2.0) White Blood Count 7.8 x10^3/uL (4.0-11.0) Red Blood Count 2.95 x10^6/uL (3.50-5.40) Hemoglobin 8.7 g/dL (12.0-15.5) Hematocrit 26.4 % (36.0-47.0) Mean Corpuscular Volume 90 fL (79-100) Mean Corpuscular Hemoglobin 30 pg (25-35) Mean Corpuscular Hemoglobin Concent 33 g/dL (31-37) Red Cell Distribution Width 15.4 % (11.5-14.5) Platelet Count 227 x10^3/uL (140-400) Neutrophils (%) (Auto) 62 % (31-73) Lymphocytes (%) (Auto) 21 % (24-48) Monocytes (%) (Auto) 16 % (0-9) Eosinophils (%) (Auto) 2 % (0-3) Basophils (%) (Auto) 1 % (0-3) Neutrophils # (Auto) 4.8 x10^3/uL (1.8-7.7) Lymphocytes # (Auto) 1.6 x10^3/uL (1.0-4.8) Monocytes # (Auto) 1.2 x10^3/uL (0.0-1.1) Eosinophils # (Auto) 0.1 x10^3/uL (0.0-0.7) Basophils # (Auto) 0.0 x10^3/uL (0.0-0.2) Sodium Level 138 mmol/L (136-145) Potassium Level 3.6 mmol/L (3.5-5.1) Chloride Level 105 mmol/L (98-107) Carbon Dioxide Level 25 mmol/L (21-32) Anion Gap 8 (6-14) Blood Urea Nitrogen 16 mg/dL (7-20) Creatinine 1.5 mg/dL (0.6-1.0) Estimated GFR (Cockcroft-Gault) 44.7 BUN/Creatinine Ratio 11 (6-20) Glucose Level 97 mg/dL (70-99) Calcium Level 8.4 mg/dL (8.5-10.1) Total Bilirubin 0.2 mg/dL (0.2-1.0) Aspartate Amino Transf (AST/SGOT) 14 U/L (15-37) Alanine Aminotransferase (ALT/SGPT) 11 U/L (14-59) Alkaline Phosphatase 84 U/L (46-116) Creatine Kinase 52 U/L (26-192) Total Protein 7.3 g/dL (6.4-8.2) Albumin 2.3 g/dL (3.4-5.0) Albumin/Globulin Ratio 0.5 (1.0-1.7) Results All relevant outside records, renal labs, imaging studies, telemetry/EKG's were reviewed. Justicifation of Admission Dx: Justifications for Admission: Justification of Admission Dx: Yes Sepsis: Dehydration CORWIN GRANDA MD Nov 19, 2020 09:37
--- NOTE | 2020-11-19 10:35 | PDOC ---
Date of Service: DATE: 11/19/20 TIME: 10:31 Subjective: Subjective: Feels much better, tolerating diet. Objective: Objective: Tmax 101.4 Vital Signs: Vital Signs Date Time Temp Pulse Resp B/P (MAP) Pulse Ox O2 Delivery O2 Flow Rate FiO2 11/19/20 07:00 98.4 69 103/59 (74) 97 Room Air 98.4 11/19/20 02:18 20 Labs: Laboratory Tests Test 11/18/20 10:55 11/19/20 04:40 Lactic Acid Level 0.6 mmol/L White Blood Count 7.8 x10^3/uL Red Blood Count 2.95 x10^6/uL Hemoglobin 8.7 g/dL Hematocrit 26.4 % Mean Corpuscular Volume 90 fL Mean Corpuscular Hemoglobin 30 pg Mean Corpuscular Hemoglobin Concent 33 g/dL Red Cell Distribution Width 15.4 % Platelet Count 227 x10^3/uL Neutrophils (%) (Auto) 62 % Lymphocytes (%) (Auto) 21 % Monocytes (%) (Auto) 16 % Eosinophils (%) (Auto) 2 % Basophils (%) (Auto) 1 % Neutrophils # (Auto) 4.8 x10^3/uL Lymphocytes # (Auto) 1.6 x10^3/uL Monocytes # (Auto) 1.2 x10^3/uL Eosinophils # (Auto) 0.1 x10^3/uL Basophils # (Auto) 0.0 x10^3/uL Sodium Level 138 mmol/L Potassium Level 3.6 mmol/L Chloride Level 105 mmol/L Carbon Dioxide Level 25 mmol/L Anion Gap 8 Blood Urea Nitrogen 16 mg/dL Creatinine 1.5 mg/dL Estimated GFR (Cockcroft-Gault) 44.7 BUN/Creatinine Ratio 11 Glucose Level 97 mg/dL Calcium Level 8.4 mg/dL Total Bilirubin 0.2 mg/dL Aspartate Amino Transf (AST/SGOT) 14 U/L Alanine Aminotransferase (ALT/SGPT) 11 U/L Alkaline Phosphatase 84 U/L Creatine Kinase 52 U/L Total Protein 7.3 g/dL Albumin 2.3 g/dL Albumin/Globulin Ratio 0.5 URINE CULTURE Final Final No Growth on 11/19/20 at 0956 PE: GEN: NAD LUNGS: CTAB HEART: RRR ABD: S/ND/NT NEURO/PSYCH: A & O 3 A/P: Recurrent n/v, weight loss - tolerating diet currently ACD/YOLIE, LEXX (better) HIV -- DC per primary on PPI QD - d/w pt and nurse. Follow-up for EGD and colonoscopy - our office will arrange. Justicifation of Admission Dx: Justifications for Admission: Justification of Admission Dx: Yes Sepsis: Dehydration HUGO LAYNE Nov 19, 2020 10:35
[2020-11-19 10:43] LABS: BILIRUBIN,URINE NEGATIVE (NEG); CLARITY,URINE CLEAR; COLOR,URINE YELLOW; NITRITE,URINE NEGATIVE (NEG); PROTEIN,URINE NEGATIVE (NEG-TRACE); UROBILINOGEN,URINE 0.2 mg/dL (0.2 mg/dL)
[2020-11-19 11:00] VITALS: BP 109/56
[2020-11-19 11:05] LABS: BACTERIA,URINE FEW /HPF (0-FEW)
--- NOTE | 2020-11-19 11:20 | PDOC ---
[employer] PROGRESS NOTE Date of Service DOS: DATE: 11/19/20 TIME: 11:18 Chief Complaint Chief Complaint ASSESSMENT AND PLAN: Nausea, vomiting, diarrhea acute kidney injury with a BUN of 34, creatinine 2.1. sepsis possible acute pyelonephritis HEMATURIA t max 101.4 this am 2-10 admitted. IV fluids. Consult Infectious Disease. pending Consult Nephrology. pending Home meds, DVT prophylaxis. Full code. P.r.n. Zofran. IV ceftriaxone, IV Pepcid. Drug screen. blood culture crp RENAL SONO D/W RN History of Present Illness History of Present Illness 11/19/20 Patient seen and examined - appeared to be in good spirits this morning Discussed d/c and lab results with patient DWRN Chart reviewed CHIEF COMPLAINT: Nausea, vomiting, chills. HISTORY OF PRESENT ILLNESS: The patient is a pleasant middle-aged female who has HIV. I do not think she is taking her medications. Now, she has nausea, vomiting, chills, diarrhea, it has been occurring for a couple of days, rated at 7/10. While in the ER, we noticed that she has an acute kidney injury with a BUN of 34, creatinine of 2.1. We are going to admit the patient and consult Infectious Disease and Nephrology. PAST MEDICAL HISTORY: Noncompliance, HIV, , tonsillectomy. ALLERGIES: None. FAMILY HISTORY: Diabetes. SOCIAL HISTORY: She does not drink, smoke or take drugs. MEDICATIONS: Reviewed, please refer to the MRAD. REVIEW OF SYSTEMS: GENERAL: No history of weight change, weakness or fevers. SKIN: No bruising, hair changes or rashes. EYES: No blurred, double or loss of vision. NOSE AND THROAT: No history of nosebleeds, hoarseness or sore throat. HEART: No history of palpitations, chest pain or shortness of breath on exertion. LUNGS: Denies cough, hemoptysis, wheezing or shortness of breath. GASTROINTESTINAL: She complains of nausea, vomiting, diarrhea. GENITOURINARY: No history of frequency, urgency, hesitancy or nocturia. NEUROLOGIC: Denies history of numbness, tingling, tremor or weakness. PSYCHIATRIC: No history of panic, anxiety or depression. ENDOCRINE: No history of heat or cold intolerance, polyuria or polydipsia. EXTREMITIES: Denies muscle weakness, joint pain, pain on walking or stiffness. Vitals/I&O Vitals/I&O: Vital Signs Date Time Temp Pulse Resp B/P (MAP) Pulse Ox O2 Delivery O2 Flow Rate FiO2 11/19/20 11:00 98.1 73 109/56 (73) 98 Room Air 98.1 11/19/20 02:18 20 I & O 11/18/20 11/18/20 11/19/20 15:00 23:00 07:00 Intake Total 550 ml 300 ml 1625 ml Output Total 1400 ml Balance 550 ml 300 ml 225 ml Physical Exam Physical Exam: GEN: axox 3 female in nad HEENT: Normocephalic, atraumatic. Anicteric. No thrush. Oral mucosa moist. Dentition fair. NECK: Supple, no JVD. LUNGS: Clear bilaterally. No wheezing. HEART: S1, S2. No gallops or murmurs. ABDOMEN: Soft, nontender, nondistended, no rebound, no guarding. EXTREMITIES: No edema, no cyanosis. DERMATOLOGIC: Warm, dry. No generalized rash. NEUROLOGIC: Alert and oriented x 3, grossly nonfocal. PSYCHIATRIC: Cooperative, appropriate mood and affect. General: Alert, Oriented X3, Cooperative, No acute distress Heart: Regular rate Lungs: Clear Extremities: No cyanosis Labs Labs: Laboratory Tests Test 11/19/20 04:40 11/19/20 10:26 White Blood Count 7.8 x10^3/uL (4.0-11.0) Red Blood Count 2.95 x10^6/uL (3.50-5.40) Hemoglobin 8.7 g/dL (12.0-15.5) Hematocrit 26.4 % (36.0-47.0) Mean Corpuscular Volume 90 fL (79-100) Mean Corpuscular Hemoglobin 30 pg (25-35) Mean Corpuscular Hemoglobin Concent 33 g/dL (31-37) Red Cell Distribution Width 15.4 % (11.5-14.5) Platelet Count 227 x10^3/uL (140-400) Neutrophils (%) (Auto) 62 % (31-73) Lymphocytes (%) (Auto) 21 % (24-48) Monocytes (%) (Auto) 16 % (0-9) Eosinophils (%) (Auto) 2 % (0-3) Basophils (%) (Auto) 1 % (0-3) Neutrophils # (Auto) 4.8 x10^3/uL (1.8-7.7) Lymphocytes # (Auto) 1.6 x10^3/uL (1.0-4.8) Monocytes # (Auto) 1.2 x10^3/uL (0.0-1.1) Eosinophils # (Auto) 0.1 x10^3/uL (0.0-0.7) Basophils # (Auto) 0.0 x10^3/uL (0.0-0.2) Sodium Level 138 mmol/L (136-145) Potassium Level 3.6 mmol/L (3.5-5.1) Chloride Level 105 mmol/L (98-107) Carbon Dioxide Level 25 mmol/L (21-32) Anion Gap 8 (6-14) Blood Urea Nitrogen 16 mg/dL (7-20) Creatinine 1.5 mg/dL (0.6-1.0) Estimated GFR (Cockcroft-Gault) 44.7 BUN/Creatinine Ratio 11 (6-20) Glucose Level 97 mg/dL (70-99) Calcium Level 8.4 mg/dL (8.5-10.1) Total Bilirubin 0.2 mg/dL (0.2-1.0) Aspartate Amino Transf (AST/SGOT) 14 U/L (15-37) Alanine Aminotransferase (ALT/SGPT) 11 U/L (14-59) Alkaline Phosphatase 84 U/L (46-116) Creatine Kinase 52 U/L (26-192) Total Protein 7.3 g/dL (6.4-8.2) Albumin 2.3 g/dL (3.4-5.0) Albumin/Globulin Ratio 0.5 (1.0-1.7) Urine Color Yellow Urine Clarity Clear Urine pH 6.0 (<5.0-8.0) Urine Specific [place] 1.010 (1.000-1.030) Urine Protein Negative mg/dL (NEG-TRACE) Urine Glucose (UA) Negative mg/dL (NEG) Urine Ketones (Stick) Negative mg/dL (NEG) Urine Blood Large (NEG) Urine Nitrite Negative (NEG) Urine Bilirubin Negative (NEG) Urine Urobilinogen Dipstick 0.2 mg/dL (0.2 mg/dL) Urine Leukocyte Esterase Moderate (NEG) Urine RBC 11-20 /HPF (0-2) Urine WBC 1-4 /HPF (0-4) Urine Squamous Epithelial Cells Few /LPF Urine Bacteria Few /HPF (0-FEW) Assessment and Plan Assessmemt and Plan Problems Medical Problems: (1) Acute kidney injury Status: Acute Nausea, vomiting, diarrhea acute kidney injury with a BUN of 34, creatinine 2.1. sepsis possible acute pyelonephritis HEMATURIA Plan IV fluids. Appreciate input from infectious disease and nephrology Home meds, DVT prophylaxis. Full code. P.r.n. Zofran. IV ceftriaxone, IV Pepcid. blood culture crp RENAL SONO - came back showing signs of medical kidney disease Avoid nephrotoxins Full code Comment Review of Relevant I have reviewed the following items hero (where applicable) has been applied. Medications: Current Medications Medications (Trade) Dose Ordered Sig/Joel Route PRN Reason Start Time Stop Time Status Last Admin Dose Admin Ceftriaxone Sodium (Rocephin) 1 gm Q24H IVP 11/18/20 18:00 11/18/20 17:02 Pantoprazole Sodium (Protonix) 40 mg DAILYAC PO 11/18/20 12:30 11/19/20 08:11 Sodium Chloride 1,000 ml @ 75 mls/hr [id number] IV 11/18/20 19:00 11/18/20 20:50 Throat Lozenges (Cepacol Sore Throat Lozenge) 1 dustin PRN Q2HRS PRN PO SORE THROAT 11/19/20 02:00 11/19/20 02:00 Justifications for Admission Other Justification LENNY LATHAM III DO Nov 19, 2020 11:20
[2020-11-19] MEDS ORDERED: CEFD300C PO (12:10)
[2020-11-19] MEDS ORDERED: PANT40TA77 PO (12:10)
[2020-11-19] MEDS: cefTRIAXone IV Push 1 GM VIAL. IVP SCH (12:42)
== END 2020-11-19 13:55 | disposition home or self-care (01) | DRG 872 ==
LOC: ER 14:42 → ED HOLD 18:00 → 2 SOUTH 22:46
PROVIDERS: ADMIT Internal Medicine; ATTEND Internal Medicine
DX: A41.9 Sepsis, unspecified organism (principal); N17.9 Acute kidney failure, unspecified; D64.9 Anemia, unspecified; E86.0 Dehydration; Z21 Asymptomatic human immunodeficiency virus [HIV] infection status; Z83.3 Family history of diabetes mellitus; Z91.19 Patient's noncompliance with other medical treatment and regimen; Z98.891 History of uterine scar from previous surgery; Z20.822 Contact with and (suspected) exposure to COVID-19
CPT/HCPCS: 36415; 71045; 76700; 80053; 80307; 81001; 81025; 82550; 82607; 83540; 83550; 83605; 83690; 84484; 85025; 86140; 86592; 86705; 86709; 86803; 87040; 87086; 87340; 87536; 93005; 96361; 96374; 96375; 99285; J0696; J2405; J3490; J7030; G0378

== ENCOUNTER → 2020-12-01 | Outpatient (CLI) | payer OTHER ==
[2020-11-19 11:00] VITALS: BP 109/56
[~2020-12-01] MED LIST changes: +CEFD300C PO; +PANT40TA77 PO
[2020-12-01 14:02] LABS: BASO % 1 % (0-3); EOS # 0.1 x10^3/uL (0.0-0.7); EOS % 2 % (0-3); HEMATOCRIT 27.8 % (36.0-47.0); HEMOGLOBIN 9.3 g/dL (12.0-15.5); LYMPH # 1.5 x10^3/uL (1.0-4.8); LYMPH % 30 % (24-48); MEAN CORPUSCULAR HEMOGLOBIN 30 pg (25-35); MEAN CORPUSCULAR HGB CONC 34 g/dL (31-37); MEAN CORPUSCULAR VOLUME 90 fL (79-100); MONO # 0.6 x10^3/uL (0.0-1.1); MONO % 12 % (0-9); NEUT # 2.7 x10^3/uL (1.8-7.7); NEUT % 55 % (31-73); PLATELET COUNT 302 x10^3/uL (140-400); RED BLOOD COUNT 3.08 x10^6/uL (3.50-5.40); RED CELL DISTRIBUTION WIDTH 15.5 % (11.5-14.5)
[2020-12-01 14:27] LABS: ALBUMIN 3.2 g/dL (3.4-5.0); ALBUMIN/GLOBULIN RATIO 0.5 (1.0-1.7); CREATININE 1.5 mg/dL (0.6-1.0); GFR 44.7; POTASSIUM 3.7 mmol/L (3.5-5.1); TOTAL BILIRUBIN 0.2 mg/dL (0.2-1.0); TOTAL PROTEIN 9.1 g/dL (6.4-8.2)
== END ==
LOC: LAB 13:07
PROVIDERS: ATTEND Family Medicine
DX: D64.9 Anemia, unspecified (principal); N17.9 Acute kidney failure, unspecified
CPT/HCPCS: 36415; 80053; 85025

== ENCOUNTER 2021-01-01 10:08 | Inpatient (IN) | payer OTHER ==
[~2021-01-01] VITALS: Ht 170.2 cm; Wt 76.2 kg
[2021-01-01] MEDS ORDERED: IV NORMAL SALINE 1000ML BAG 1,000 ML IV SCH (10:30)
[2021-01-01 10:38] LABS: BASO # 0.1 x10^3/uL (0.0-0.2); BASO % 1 % (0-3); EOS % 0 % (0-3); HEMATOCRIT 33.1 % (36.0-47.0); HEMOGLOBIN 11.5 g/dL (12.0-15.5); LYMPH # 1.9 x10^3/uL (1.0-4.8); LYMPH % 15 % (24-48); MEAN CORPUSCULAR HEMOGLOBIN 31 pg (25-35); MEAN CORPUSCULAR HGB CONC 35 g/dL (31-37); MEAN CORPUSCULAR VOLUME 90 fL (79-100); MONO # 2.3 x10^3/uL (0.0-1.1); MONO % 18 % (0-9); NEUT # 8.7 x10^3/uL (1.8-7.7); NEUT % 67 % (31-73); PLATELET COUNT 312 x10^3/uL (140-400); RED BLOOD COUNT 3.69 x10^6/uL (3.50-5.40); RED CELL DISTRIBUTION WIDTH 14.9 % (11.5-14.5)
[2021-01-01 10:42] LABS: BILIRUBIN,URINE LARGE (NEG); CLARITY,URINE TURBID; COLOR,URINE RED; NITRITE,URINE POSITIVE (NEG); PROTEIN,URINE >=300 mg/dL (NEG-TRACE)
--- NOTE | 2021-01-01 10:49 | PHYS DOC ---
Past Medical History Past Medical History: HIV (MARBIN GUPTA SKI PATROL DIRECTOR) Past Surgical History: , Tonsillectomy (MARBIN GUPTA SKI PATROL DIRECTOR) Smoking Status: Never Smoker Alcohol Use: None Drug Use: None (MARBIN GUPTA APRN) General Adult EDM: Chief Complaint: NAUSEA/VOMITING/DIARRHEA HPI: HPI: Patient is a 50 year old female who presents with states that she is been having nausea and vomiting since this past Monday. Patient does have a oral temp of 99.9 and she is tachycardic in the 110's In the ED. She states that when she goes to stand up she started to feel dizzy. Patient was here back in November for the same thing. She had an acute kidney injury at that time. Patient's urine is very dark upon a urine specimen in the ED. She denies abdominal pain, shortness of breath, chest pain, diarrhea, constipation, headache, cough, nasal congestion, recent travel, being around anyone sick, syncope. Patient does have a history of HIV of which she states she takes her medications every day except for when she starts having nausea and vomiting and then she cannot keep anything down. She also has a history of a and LEXX. (MARBIN GUPTA SKI PATROL DIRECTOR) Review of Systems: Review of Systems: Constitutional: + fever or chills. [] Eyes: Denies change in visual acuity. [] HENT: Denies nasal congestion or sore throat. [] Respiratory: Denies cough or shortness of breath. [] Cardiovascular: Denies chest pain or edema. [] GI: Denies abdominal pain, +nausea, +vomiting, denies bloody stools or di arrhea. [] : Denies dysuria. [] Musculoskeletal: Denies back pain or joint pain. [] Integument: Denies rash. [] Neurologic: Denies headache, focal weakness or sensory changes. +Dizziness [] Endocrine: Denies polyuria or polydipsia. [] Lymphatic: Denies swollen glands. [] Psychiatric: Denies depression or anxiety. [] (MARBIN GUPTA SKI PATROL DIRECTOR) Heart Score: C/O Chest Pain: No Risk Factors: Risk Factors: DM, Current or recent (<one month) smoker, HTN, HLP, family history of CAD, obesity. Risk Scores: Score 0 - 3: 2.5% MACE over next 6 weeks - Discharge Home Score 4 - 6: 20.3% MACE over next 6 weeks - Admit for Clinical Observation Score 7 - 10: 72.7% MACE over next 6 weeks - Early Invasive Strategies (MARBIN GUPTA APRN) Current Medications: Current Medications Medications (Trade) Dose Ordered Sig/Joel Start Time Stop Time Status Last Admin Dose Admin Ondansetron HCl (Zofran) 4 mg 1X ONCE 01/01/21 11:00 01/01/21 11:01 Sodium Chloride 1,000 ml @ 1,000 mls/hr 1X ONCE 01/01/21 11:00 01/01/21 11:59 (MARBIN GUPTA APRN) Allergies: Allergies: Allergies Coded Allergies Type Severity Reaction Last Updated Verified No Known Drug Allergies 07/17/19 No (MARBIN GUPTA APRN) Physical Exam: PE: Constitutional: Well developed, well nourished, no acute distress, non-toxic appearance. [] HENT: Normocephalic, atraumatic, bilateral external ears normal, oropharynx moist, no oral exudates, nose normal. [] Eyes: PERRLA, EOMI, conjunctiva normal, no discharge. [] Neck: Normal range of motion, no tenderness, supple, no stridor. [] Cardiovascular:Heart rate regular tachycardic rhythm, no murmur [] Lungs & Thorax: Bilateral breath sounds clear to auscultation [] Abdomen: Bowel sounds normal, soft, no tenderness, no masses, no pulsatile masses. [] Skin: Warm, dry, no erythema, no rash. [] Back: No tenderness, no CVA tenderness. [] Extremities: No tenderness, no cyanosis, no clubbing, ROM intact, no edema. [] Neurologic: Alert and oriented X 3, normal motor function, normal sensory function, no focal deficits noted. [] Psychologic: Affect normal, judgement normal, mood normal. [] (MARBIN GUPTA APRN) Current Patient Data: Vital Signs: Vital Signs Date Time Temp Pulse Resp B/P (MAP) Pulse Ox O2 Delivery O2 Flow Rate FiO2 01/01/21 10:28 99.9 123 20 108/63 (78) 98 Room Air 99.9 (MARBIN GUPTA APRN) EKG: EK and read by Dr Wood as sinus rhythm and no STEMI[] (MARBIN GUPTA APRN) Radiology/Procedures: Radiology/Procedures: [] Impression: [facility] [address] [place] [address] IMAGING REPORT Signed PATIENT: SHAYY GAMEZ ACCOUNT: [id number] : 1970 LOCATION: ER AGE: 50 SEX: F EXAM STATUS: PRE ER ORD. PHYSICIAN: MARBIN GUPTA APRN REASON: vomiting, fever PROCEDURE: PORTABLE CHEST 1V XR CHEST 1V History: Reason: vomiting, fever / Spl. Instructions: / History: Comparison: November 17, 2020 Findings: No consolidation or pleural effusion. Normal heart size. No pneumothorax. Impression: 1. No acute cardiopulmonary process. Electronically signed by: Mauricio Vasques DO (01/01/2021 10:45 AM) [id number] DICTATED and SIGNED BY: MAURICIO VASQUES DO DATE: 01/01/21 [id number] 0 (MARBIN GUPTA APRN) Course & Med Decision Making: Course & Med Decision Making Pertinent Labs and Imaging studies reviewed. (See chart for details) See HPI. Alert and oriented x4. Ambulatory with a steady gait. Abdomen soft and nontender. No CVA tenderness. Lungs are clear to auscultation all lobes. BUN and creatinine have bumped since November. Potassium was 3.3 and I have ordered IV potassium since she is having nausea and vomiting. White blood cell count is 13. She does have a UTI with nitrites. She is gotten 2 L of normal saline and Zosyn. Lactic acid is normal. Patient is admitted to Dr. Lozano. [] (MARBIN GUPTA APRN) [place] Disclaimer: Perla Disclaimer: This electronic medical record was generated, in whole or in part, using a voice recognition dictation system. (MARBIN GUPTA APRN) Departure Departure Impression: Primary Impression: Acute kidney injury Additional Impressions: Urinary tract infection Qualified Codes: N39.0 - Urinary tract infection, site not specified Hypokalemia Nausea and vomiting Qualified Codes: R11.2 - Nausea with vomiting, unspecified Disposition: 09 ADMITTED INPT THIS HOSP Admitting Physician: PATRICK (MARBIN GUPTA APRN) Condition: STABLE Referrals: ESTEFANIA TORO MD (PCP) Attending Signature Attending Signature I have reviewed the PA/PROVIDER NETWORK MANAGER's note and plan of care. I was available for consultation as needed during the patient's visit in the emergency department. I agree with the clinical impression, plan, and disposition. (JEROME WOOD DO) MARBIN GUPTA APRN Jan 01, 2021 10:49 JEROME WOOD DO Jan 01, 2021 12:13
[2021-01-01 10:51] LABS: RBC,URINE TNTC /HPF (0-2)
[2021-01-01 10:52] LABS: BACTERIA,URINE MODERATE /HPF (0-FEW); WBC,URINE 20-40 /HPF (0-4)
[2021-01-01 10:52] LABS: CALCIUM 9.1 mg/dL (8.5-10.1); POTASSIUM 3.3 mmol/L (3.5-5.1)
[2021-01-01 10:58] LABS: ALBUMIN 3.3 g/dL (3.4-5.0); ALBUMIN/GLOBULIN RATIO 0.5 (1.0-1.7); TOTAL BILIRUBIN 0.3 mg/dL (0.2-1.0); TOTAL PROTEIN 10.4 g/dL (6.4-8.2)
[2021-01-01] MEDS ORDERED: PIPERACILLIN/TAZOBACTAM 3.375 GM in IV NORMAL SALINE 50ML 50 ML IV ONE (11:00)
[2021-01-01] MEDS ORDERED: IV NORMAL SALINE 1000ML BAG 1,000 ML IV ONE (11:00)
[2021-01-01] MEDS ORDERED: ONDANSETRON PF 4 MG/2 ML VIAL. IVP ONE (11:00)
--- NOTE | 2021-01-01 11:08 | EKG ---
[facility] [address] [place] [address] Test Date: 2021-01-01 Test Time: 10:56:48 Pat Name: SHAYY GAMEZ Department: Room: Gender: F [employer] Lifter: : 1970 Requested By: MARBIN GUPTA Order Number: [id number] Reading MD: Measurements Intervals [place] Rate: 99 P: 42 MD: 150 QRS: 19 QRSD: 76 T: 34 QT: 340 QTc: 442 Interpretive Statements SINUS RHYTHM NORMAL ECG RI6.02 No previous ECG available for comparison
[2021-01-01] MEDS ORDERED: POTASSIUM CHLORIDE 20MEQ 100 ML IV ONE (11:15)
[2021-01-01] MEDS ORDERED: ONDANSETRON PF 4 MG/2 ML VIAL. IV PRN ×2 (12:00→12:30)
[2021-01-01 12:09] LABS: % LYMPHS 14 % (24-48); % MONOS 17 % (0-10); % SEGS 69 % (35-66); PLT ESTIMATE ADEQUATE (ADEQUATE)
--- NOTE | 2021-01-01 12:09 | PDOC1 ---
History and Physical Date of Admission Date of Admission DATE: 01/01/21 TIME: 12:09 Identification/Chief Complaint Chief Complaint INTRACTABLE VOMITING X 2 DAYS oral temp of 99.9 and she is tachycardic in the 110's In the ED. She states that when she goes to stand up she started to feel dizzy. History of Present Illness History of Present Illness 50 yr old female, hiv pos seen in ER WITH intractable vomiting, LEXX Bilious emesis, hasn't kept anything down since Monday Feels weak, low grade fever. No GI symptoms from time of discharge until this week. Has been taking PPI QD. No hematemesis, hematochezia, melena, diarrhea, constipation, or dysphagia. No previous scopes. No GB, liver, pancreas, or PUD history. oral temp of 99.9 and she is tachycardic in the 110's In the ED. She states that when she goes to stand up she started to feel dizzy. Past Medical History Past Medical History Past Medical History Past Medical History Past Medical History: HIV Past Surgical History: , Tonsillectomy Smoking Status: Never Smoker Alcohol Use: None Drug Use: None FHX HTN Nausea,RECURRENT vomiting and diarrhea, chronic human immunodeficiency virus, history of tonsillectomy, section. Rheumatologic: No pertinent hx Infectious disease: HIV Family History Family History: Hypertension Social History Smoke: No ALCOHOL: none Drugs: None Current Problem List Problem List Problems Medical Problems: (1) Acute kidney injury Status: Acute (2) Hypokalemia Status: Acute (3) Nausea and vomiting Status: Acute (4) Urinary tract infection Status: Acute Current Medications Current Medications Current Medications Sodium Chloride 1,000 ml @ 1,000 mls/hr Q1H IV Last administered on 01/01/21at 10:49; Start 01/01/21 at 10:30; Stop 01/01/21 at 11:29; Status DC Ondansetron HCl (Zofran) 4 mg 1X ONCE IVP Last administered on 01/01/21at 10:49; Start 01/01/21 at 11:00; Stop 01/01/21 at 11:01; Status DC Sodium Chloride 1,000 ml @ 1,000 mls/hr 1X ONCE IV Last administered on 01/01/21at 10:50; Start 01/01/21 at 11:00; Stop 01/01/21 at 11:59; Status DC Piperacillin Sod/ Tazobactam Sod 3.375 gm/Sodium Chloride 50 ml @ 100 mls/hr 1X ONCE IV Last administered on 01/01/21at 11:03; Start 01/01/21 at 11:00; Stop 01/01/21 at 11:29; Status DC Potassium Chloride/Water 100 ml @ 50 mls/hr 1X ONCE IV Last administered on 01/01/21at 11:26; Start 01/01/21 at 11:15; Stop 01/01/21 at 13:14 Ondansetron HCl (Zofran) 4 mg PRN Q8HRS PRN IV NAUSEA/VOMITING; Start 01/01/21 at 12:00; Stop 01/02/21 at 11:59 Active Scripts Active Reported Protonix (Pantoprazole Sodium) 40 Mg Tablet.dr 40 Mg PO DAILYAC Cefdinir 300 Mg Capsule 300 Mg PO BID Allergies Allergies: Coded Allergies: No Known Drug Allergies (Unverified , 07/17/19) ROS Review of System 14 PT ROS OTHERWISE NEG General: YES: Chills, Fatigue; No: Night Sweats, Malaise, Appetite, Other PSYCHOLOGICAL ROS: YES: Anxiety; No: Behavioral Disorder, Concentration difficultie, Decreased libido, Depression, Disorientation, Hallucinations, Hostility, Irritablity, Memory difficulties, Mood Swings, Obsessive thoughts, Physical abuse, Sexual abuse, Sleep disturbances, Suicidal ideation, Other Eyes: No Blurry vision, No Decreased vision, No Double vision, No Dry eyes, No Excessive tearing, No Eye Pain, No Itchy Eyes, No Loss of vision, No Photophobia, No Scotomata, No Uses contacts, No Uses glasses, No Other HEENT: No: Heacaches, Visual Changes, Hearing change, Nasal congestion, Nasal discharge, Oral lesions, Sinus pain, Sore Throat, Epistaxis, Sneezing, Snoring, Tinnitus, Vertigo, Vocal changes, Other ALLERGY AND IMMUNOLOGY: No: Hives, Insect Bite Sensitivity, Itchy/Watery Eyes, Nasal Congestion, Post Nasal Drip, Seasonal Allergies, Other Hematological and Lymphatic: No: Bleeding Problems, Blood Clots, Blood Transfusions, Brusing, Night Sweats, Pallor, Swollen Lymph Nodes, Other ENDOCRINE: No: Breast Changes, Galactorrhea, Hair Pattern Changes, Hot Flashes, Malaise/lethargy, Mood Swings, Palpitations, Polydipsia/polyuria, Skin Changes, Temperature Intolerance, Unexpected Weight Changes, Other Breast: No New/Changing Breast Lumps, No Nipple changes, No Nipple discharge, No Other Respiratory: No: Cough, Hemoptysis, Orthopnea, Pleuritic Pain, Shortness of breath, SOB with excertion, Sputum Changes, Stridor, Tachypnea, Wheezing, Other Gastrointestinal: Yes Nausea, Yes Vomiting; No Abdominal Pain, No Diarrhea, No Constipation, No Melena, No Hematochezia, No Other Genitourinary: No Dysuria, No Frequency, No Incontinence, No Hematuria, No Retention, No Discharge, No Urgency, No Pain, No Flank Pain, No Other, No , No , No , No , No , No , No Musculoskeletal: No Gait Disturbance, No Joint Pain, No Joint Stiffness, No Joint Swelling, No Muscle Pain, No Muscular Weakness, No Pain In:, No Swelling In:, No Other Neurological: No Behavorial Changes, No Bowel/Bladder ControlChng, No Confusion, No Dizziness, No Gait Disturbance, No Headaches, No Impaired Coord/balance, No Memory Loss, No Numbness/Tingling, No Seizures, No Speech Problems, No Tremors, No Visual Changes, No Weakness, No Other Skin: No Dry Skin, No Eczema, No Hair Changes, No Lumps, No Mole Changes, No Mottling, No Nail Changes, No Pruritus, No Rash, No Skin Lesion Changes, No Other, No Acne Physical Exam Physical Exam Constitutional: Well developed, well nourished, MILD acute distress, non-toxic appearance. [] HENT: Normocephalic, atraumatic, bilateral external ears normal, oropharynx moist, no oral exudates, nose normal. [] Eyes: PERRLA, EOMI, conjunctiva normal, no discharge. [] Neck: Normal range of motion, no tenderness, supple, no stridor. [] Cardiovascular:Heart rate regular tachycardic rhythm, no murmur [] Lungs & Thorax: Bilateral breath sounds clear to auscultation [] Abdomen: Bowel sounds normal, soft, no tenderness, no masses, no pulsatile masses. [] Skin: Warm, dry, no erythema, no rash. [] Back: No tenderness, no CVA tenderness. [] Extremities: No tenderness, no cyanosis, no clubbing, ROM intact, no edema. [] Neurologic: Alert and oriented X 3, normal motor function, normal sensory function, no focal deficits noted. [] Psychologic: Affect normal, judgment normal, mood normal. [] General: Alert, Oriented X3, Cooperative, mild distress HEENT: Atraumatic, PERRLA Lungs: Clear to auscultation Heart: RRR Breasts: Not examined Abdomen: Normal bowel sounds, Soft Rectal Exam: not examined PELVIC: Examination not indicated Extremities: No cyanosis, No edema Skin: No significant lesion Neuro: Normal speech, Cranial nerves 3-12 NL Psych/Mental Status: Mental status NL, Mood NL Vitals Vitals Vital Signs Date Time Temp Pulse Resp B/P (MAP) Pulse Ox O2 Delivery O2 Flow Rate FiO2 01/01/21 11:20 90 113/63 (80) 96 Room Air 01/01/21 10:28 99.9 20 99.9 Labs Labs Laboratory Tests Test 01/01/21 10:10 01/01/21 10:20 Urine Collection Type Void Urine Color Red Urine Clarity Turbid Urine pH 5.0 (<5.0-8.0) Urine Specific [place] 1.025 (1.000-1.030) Urine Protein >=300 mg/dL (NEG-TRACE) Urine Glucose (UA) Negative mg/dL (NEG) Urine Ketones (Stick) 15 mg/dL (NEG) Urine Blood Large (NEG) Urine Nitrite Positive (NEG) Urine Bilirubin Large (NEG) Urine Urobilinogen Dipstick 1.0 mg/dL (0.2 mg/dL) Urine Leukocyte Esterase Large (NEG) Urine RBC Tntc /HPF (0-2) Urine WBC 20-40 /HPF (0-4) Urine Squamous Epithelial Cells Many /LPF Urine Bacteria Moderate /HPF (0-FEW) White Blood Count 13.0 x10^3/uL (4.0-11.0) Red Blood Count 3.69 x10^6/uL (3.50-5.40) Hemoglobin 11.5 g/dL (12.0-15.5) Hematocrit 33.1 % (36.0-47.0) Mean Corpuscular Volume 90 fL (79-100) Mean Corpuscular Hemoglobin 31 pg (25-35) Mean Corpuscular Hemoglobin Concent 35 g/dL (31-37) Red Cell Distribution Width 14.9 % (11.5-14.5) Platelet Count 312 x10^3/uL (140-400) Neutrophils (%) (Auto) 67 % (31-73) Lymphocytes (%) (Auto) 15 % (24-48) Monocytes (%) (Auto) 18 % (0-9) Eosinophils (%) (Auto) 0 % (0-3) Basophils (%) (Auto) 1 % (0-3) Neutrophils # (Auto) 8.7 x10^3/uL (1.8-7.7) Lymphocytes # (Auto) 1.9 x10^3/uL (1.0-4.8) Monocytes # (Auto) 2.3 x10^3/uL (0.0-1.1) Eosinophils # (Auto) 0.0 x10^3/uL (0.0-0.7) Basophils # (Auto) 0.1 x10^3/uL (0.0-0.2) Prothrombin Time 14.0 SEC (11.7-14.0) Prothromb Time International Ratio 1.1 (0.8-1.1) Maternal Serum HCG Beta Subunit 2 mIU/mL (0-5) Sodium Level 134 mmol/L (136-145) Potassium Level 3.3 mmol/L (3.5-5.1) Chloride Level 96 mmol/L (98-107) Carbon Dioxide Level 27 mmol/L (21-32) Anion Gap 11 (6-14) Blood Urea Nitrogen 26 mg/dL (7-20) Creatinine 2.0 mg/dL (0.6-1.0) Estimated GFR (Cockcroft-Gault) 32.0 BUN/Creatinine Ratio 13 (6-20) Glucose Level 134 mg/dL (70-99) Lactic Acid Level 1.1 mmol/L (0.4-2.0) Calcium Level 9.1 mg/dL (8.5-10.1) Total Bilirubin 0.3 mg/dL (0.2-1.0) Aspartate Amino Transf (AST/SGOT) 18 U/L (15-37) Alanine Aminotransferase (ALT/SGPT) 11 U/L (14-59) Alkaline Phosphatase 127 U/L (46-116) Troponin I Quantitative < 0.017 ng/mL (0.000-0.055) Total Protein 10.4 g/dL (6.4-8.2) Albumin 3.3 g/dL (3.4-5.0) Albumin/Globulin Ratio 0.5 (1.0-1.7) Lipase 152 U/L (73-393) Laboratory Tests Test 01/01/21 10:10 01/01/21 10:20 Urine Collection Type Void Urine Color Red Urine Clarity Turbid Urine pH 5.0 (<5.0-8.0) Urine Specific [place] 1.025 (1.000-1.030) Urine Protein >=300 mg/dL (NEG-TRACE) Urine Glucose (UA) Negative mg/dL (NEG) Urine Ketones (Stick) 15 mg/dL (NEG) Urine Blood Large (NEG) Urine Nitrite Positive (NEG) Urine Bilirubin Large (NEG) Urine Urobilinogen Dipstick 1.0 mg/dL (0.2 mg/dL) Urine Leukocyte Esterase Large (NEG) Urine RBC Tntc /HPF (0-2) Urine WBC 20-40 /HPF (0-4) Urine Squamous Epithelial Cells Many /LPF Urine Bacteria Moderate /HPF (0-FEW) White Blood Count 13.0 x10^3/uL (4.0-11.0) Red Blood Count 3.69 x10^6/uL (3.50-5.40) Hemoglobin 11.5 g/dL (12.0-15.5) Hematocrit 33.1 % (36.0-47.0) Mean Corpuscular Volume 90 fL (79-100) Mean Corpuscular Hemoglobin 31 pg (25-35) Mean Corpuscular Hemoglobin Concent 35 g/dL (31-37) Red Cell Distribution Width 14.9 % (11.5-14.5) Platelet Count 312 x10^3/uL (140-400) Neutrophils (%) (Auto) 67 % (31-73) Lymphocytes (%) (Auto) 15 % (24-48) Monocytes (%) (Auto) 18 % (0-9) Eosinophils (%) (Auto) 0 % (0-3) Basophils (%) (Auto) 1 % (0-3) Neutrophils # (Auto) 8.7 x10^3/uL (1.8-7.7) Lymphocytes # (Auto) 1.9 x10^3/uL (1.0-4.8) Monocytes # (Auto) 2.3 x10^3/uL (0.0-1.1) Eosinophils # (Auto) 0.0 x10^3/uL (0.0-0.7) Basophils # (Auto) 0.1 x10^3/uL (0.0-0.2) Prothrombin Time 14.0 SEC (11.7-14.0) Prothromb Time International Ratio 1.1 (0.8-1.1) Maternal Serum HCG Beta Subunit 2 mIU/mL (0-5) Sodium Level 134 mmol/L (136-145) Potassium Level 3.3 mmol/L (3.5-5.1) Chloride Level 96 mmol/L (98-107) Carbon Dioxide Level 27 mmol/L (21-32) Anion Gap 11 (6-14) Blood Urea Nitrogen 26 mg/dL (7-20) Creatinine 2.0 mg/dL (0.6-1.0) Estimated GFR (Cockcroft-Gault) 32.0 BUN/Creatinine Ratio 13 (6-20) Glucose Level 134 mg/dL (70-99) Lactic Acid Level 1.1 mmol/L (0.4-2.0) Calcium Level 9.1 mg/dL (8.5-10.1) Total Bilirubin 0.3 mg/dL (0.2-1.0) Aspartate Amino Transf (AST/SGOT) 18 U/L (15-37) Alanine Aminotransferase (ALT/SGPT) 11 U/L (14-59) Alkaline Phosphatase 127 U/L (46-116) Troponin I Quantitative < 0.017 ng/mL (0.000-0.055) Total Protein 10.4 g/dL (6.4-8.2) Albumin 3.3 g/dL (3.4-5.0) Albumin/Globulin Ratio 0.5 (1.0-1.7) Lipase 152 U/L (73-393) Images Images CT ABDOMEN+PELVIS WO History: Nausea, vomiting. Comparison: Ultrasound abdomen 11/18/2020. Technique: CT of the abdomen and pelvis with intravenous contrast. Findings: Lung bases: Clear lungs. No pleural or pericardial effusion. General abdomen: No ascites. No free air. Liver : Normal in size and attenuation. No masses seen. Gallbladder/Biliary Tree: Normal gallbladder. No intrahepatic or extrahepatic biliary ductal dilatation. Pancreas: Normal. Spleen: Normal in size and attenuation. Adrenal glands: Normal. Kidneys: No hydronephrosis or hydroureter. No renal masses identified. Gastrointestinal: Unremarkable. Lymph nodes: No lymphadenopathy. Vessels: Unremarkable. Pelvic organs: Unremarkable reproductive organs. No pelvic masses. The bladder is unremarkable. Soft tissues: Unremarkable. Bones: No acute or aggressive lesions. Impression: 1. No acute findings in the abdomen and pelvis. ------ Exposure: One or more of the following individualized dose reduction techniques were utilized for this examination: 1. Automated exposure control 2. Adjustment of the mA and/or kV according to patient size 3. Use of iterative reconstruction technique. Electronically signed by: Daniel Jamil MD (01/01/2021 12:39 PM) [facility] VTE Prophylaxis Ordered VTE Prophylaxis Devices: Yes VTE Pharmacological Prophylaxi: Yes Assessment/Plan Assessment/Plan IMPRESSION INTRACTABLE Nausea, vomiting, diarrhea acute kidney injury with a BUN of 34, creatinine 2.0. UTI LEUKOCYTOSIS HX HIV SEPSIS admitted. IV fluids. Consult Infectious Disease. IV ANTIBIOTICS EMPERIC URINE CULTURE IV FLUID SUPPORT Consult Nephrology. Home meds, DVT prophylaxis. Full code. P.r.n. Zofran. IV Pepcid. CONSULT GI consider outpt EGD, also due for screening colonoscopy. Resume PPI - IV for now. ADAT. D/W ER Justifications for Admission Other Justification ALEIDA KNIGHT MD Jan 01, 2021 12:09
[2021-01-01] MEDS ORDERED: PIP/TAZO PER PHARMACY MC PRN (12:30)
[2021-01-01] MEDS ORDERED: DOCUSATE SODIUM 100 MG CAPSULE. PO PRN (12:30)
[2021-01-01] MEDS ORDERED: MAG HYDROX/ALUMINUM HYD/SIMETH 30 ML ORAL.SUSP PO PRN (12:30)
[2021-01-01] MEDS ORDERED: 0.9 % SODIUM CHLORIDE 10 ML DISP.SYRIN. IV PRN (12:30)
[2021-01-01] MEDS ORDERED: SODIUM PHOSPHATES 19/7GM 133 ML ENEMA. PR PRN (12:30)
[2021-01-01] MEDS ORDERED: ACETAMINOPHEN 650 MG SUPP.RECT. PR PRN (12:30)
[2021-01-01] MEDS ORDERED: LORazepam 0.5 MG TABLET PO PRN (12:30)
[2021-01-01] MEDS: IV NORMAL SALINE 1000ML BAG 1,000 ML IV SCH ×2 (12:30→16:36)
[2021-01-01] MEDS ORDERED: ALBUTEROL SULFATE 2.5 MG/3 ML NEBU. NEB PRN (12:30)
[2021-01-01] MEDS ORDERED: guaiFENesin ORAL 200 MG/10 ML LIQUID. PO PRN (12:30)
--- NOTE | 2021-01-01 12:41 | RAD ---
CT ABDOMEN+PELVIS WO History: Nausea, vomiting. Comparison: Ultrasound abdomen 11/18/2020. Technique: CT of the abdomen and pelvis with intravenous contrast. Findings: Lung bases: Clear lungs. No pleural or pericardial effusion. General abdomen: No ascites. No free air. Liver : Normal in size and attenuation. No masses seen. Gallbladder/Biliary Tree: Normal gallbladder. No intrahepatic or extrahepatic biliary ductal dilatati on. Pancreas: Normal. Spleen: Normal in size and attenuation. Adrenal glands: Normal. Kidneys: No hydronephrosis or hydroureter. No renal masses identified. Gastrointestinal: Unremarkable. Lymph nodes: No lymphadenopathy. Vessels: Unremarkable. Pelvic organs: Unremarkable reproductive organs. No pelvic masses. The bladder is unremarkable. Soft tissues: Unremarkable. Bones: No acute or aggressive lesions. Impression: 1. No acute findings in the abdomen and pelvis. ------ Exposure: One or more of the following individualized dose reduction techniques were utilized for thi s examination: 1. Automated exposure control 2. Adjustment of the mA and/or kV according to patient size 3. Use of iterative reconstruction technique. Electronically signed by: Daniel Jamil MD (01/01/2021 12:39 PM) [facility]
--- NOTE | 2021-01-01 13:26 | PDOC2 ---
GI CONSULT Date of Service: DATE: 01/01/21 TIME: 13:16 Reason For Consult: persistent vomiting HPI: HPI: 50 y/o female who we saw last month for recurrent n/v and weight loss. Noted then w/ ACD and iron deficiency. Started PPI for suspected acid reflux and advised to schedule outpt EGD and colonoscopy which she has not done. Back to ER today for same issues. Began Monday w/o precipitating events. Bilious and "clear" emesis, hasn't kept anything down since Monday (boiled eggs then). Feels weak, reports low grade fever. No sore throat this time. No GI symptoms from time of discharge until this week. Has been taking PPI QD. No hematemesis, hematochezia, melena, diarrhea, constipation, or dysphagia. No previous scopes. No GB, liver, pancreas, or PUD history. Contracted GB on US last time - done after ate breakfast. Hepatitis panel negative 11/2020. Sees Dr. Dorothy Mcfadden for HIV. PMH: PMH: HIV, CKD , tonsillectomy FH: Family History: Other (mother - heart issues) Social History: Smoke: No ALCOHOL: none Drugs: None ROS: GEN: Denies fevers, chills, sweats HEENT: Denies blurred vision, sore throat CV: Denies chest pain RESP: Denies shortness of air, cough GI: Per HPI : Denies hematuria, dysuria ENDO: Denies weight changes NEURO: Denies confusion, dizziness MSK: Denies weakness, joint pain/swelling SKIN: Denies jaundice, pruritus Vitals: Vitals: Vital Signs Date Time Temp Pulse Resp B/P (MAP) Pulse Ox O2 Delivery O2 Flow Rate FiO2 01/01/21 12:10 88 123/72 (89) 97 Room Air 01/01/21 10:28 99.9 20 99.9 Labs: Labs: Laboratory Tests Test 01/01/21 10:10 01/01/21 10:20 Urine Collection Type Void Urine Color Red Urine Clarity Turbid Urine pH 5.0 (<5.0-8.0) Urine Specific [place] 1.025 (1.000-1.030) Urine Protein >=300 mg/dL (NEG-TRACE) Urine Glucose (UA) Negative mg/dL (NEG) Urine Ketones (Stick) 15 mg/dL (NEG) Urine Blood Large (NEG) Urine Nitrite Positive (NEG) Urine Bilirubin Large (NEG) Urine Urobilinogen Dipstick 1.0 mg/dL (0.2 mg/dL) Urine Leukocyte Esterase Large (NEG) Urine RBC Tntc /HPF (0-2) Urine WBC 20-40 /HPF (0-4) Urine Squamous Epithelial Cells Many /LPF Urine Bacteria Moderate /HPF (0-FEW) White Blood Count 13.0 x10^3/uL (4.0-11.0) Red Blood Count 3.69 x10^6/uL (3.50-5.40) Hemoglobin 11.5 g/dL (12.0-15.5) Hematocrit 33.1 % (36.0-47.0) Mean Corpuscular Volume 90 fL (79-100) Mean Corpuscular Hemoglobin 31 pg (25-35) Mean Corpuscular Hemoglobin Concent 35 g/dL (31-37) Red Cell Distribution Width 14.9 % (11.5-14.5) Platelet Count 312 x10^3/uL (140-400) Neutrophils (%) (Auto) 67 % (31-73) Lymphocytes (%) (Auto) 15 % (24-48) Monocytes (%) (Auto) 18 % (0-9) Eosinophils (%) (Auto) 0 % (0-3) Basophils (%) (Auto) 1 % (0-3) Neutrophils # (Auto) 8.7 x10^3/uL (1.8-7.7) Lymphocytes # (Auto) 1.9 x10^3/uL (1.0-4.8) Monocytes # (Auto) 2.3 x10^3/uL (0.0-1.1) Eosinophils # (Auto) 0.0 x10^3/uL (0.0-0.7) Basophils # (Auto) 0.1 x10^3/uL (0.0-0.2) Segmented Neutrophils % 69 % (35-66) Lymphocytes % 14 % (24-48) Monocytes % 17 % (0-10) Platelet Estimate Adequate (ADEQUATE) Prothrombin Time 14.0 SEC (11.7-14.0) Prothromb Time International Ratio 1.1 (0.8-1.1) Maternal Serum HCG Beta Subunit 2 mIU/mL (0-5) Sodium Level 134 mmol/L (136-145) Potassium Level 3.3 mmol/L (3.5-5.1) Chloride Level 96 mmol/L (98-107) Carbon Dioxide Level 27 mmol/L (21-32) Anion Gap 11 (6-14) Blood Urea Nitrogen 26 mg/dL (7-20) Creatinine 2.0 mg/dL (0.6-1.0) Estimated GFR (Cockcroft-Gault) 32.0 BUN/Creatinine Ratio 13 (6-20) Glucose Level 134 mg/dL (70-99) Lactic Acid Level 1.1 mmol/L (0.4-2.0) Calcium Level 9.1 mg/dL (8.5-10.1) Total Bilirubin 0.3 mg/dL (0.2-1.0) Aspartate Amino Transf (AST/SGOT) 18 U/L (15-37) Alanine Aminotransferase (ALT/SGPT) 11 U/L (14-59) Alkaline Phosphatase 127 U/L (46-116) Troponin I Quantitative < 0.017 ng/mL (0.000-0.055) Total Protein 10.4 g/dL (6.4-8.2) Albumin 3.3 g/dL (3.4-5.0) Albumin/Globulin Ratio 0.5 (1.0-1.7) Lipase 152 U/L (73-393) Allergies: Coded Allergies: No Known Drug Allergies (Unverified , 07/17/19) Medications: Current Medications Medications (Trade) Dose Ordered Sig/Joel Route PRN Reason Start Time Stop Time Status Last Admin Dose Admin Sodium Chloride 1,000 ml @ 1,000 mls/hr Q1H IV 01/01/21 10:30 01/01/21 11:29 DC 01/01/21 10:49 Ondansetron HCl (Zofran) 4 mg 1X ONCE IVP 01/01/21 11:00 01/01/21 11:01 DC 01/01/21 10:49 Sodium Chloride 1,000 ml @ 1,000 mls/hr 1X ONCE IV 01/01/21 11:00 01/01/21 11:59 DC 01/01/21 10:50 Piperacillin Sod/ Tazobactam Sod 3.375 gm/Sodium Chloride 50 ml @ 100 mls/hr 1X ONCE IV 01/01/21 11:00 01/01/21 11:29 DC 01/01/21 11:03 Potassium Chloride/Water 100 ml @ 50 mls/hr 1X ONCE IV 01/01/21 11:15 01/01/21 13:14 DC 01/01/21 11:26 Sodium Chloride 1,000 ml @ 100 mls/hr Q10H IV 01/01/21 12:30 01/01/21 12:30 Imaging: Imaging: CT A/P 01/01 Impression: 1. No acute findings in the abdomen and pelvis PE: GEN: NAD - chart noted mild fever (99.9) in ER HEENT: Atraumatic, PERRL LUNGS: CTAB HEART: RRR - chart notes tachycardia in ER ABD: NABS, S/ND/NT EXTREMITY: No edema SKIN: No rashes, no jaundice NEURO/PSYCH: A & O 3 A/P: A/P: Recurrent n/v Leukocytosis, ACD/YOLIE, LEXX/CKD, UTI GERD - on PPI CRC screen - none HIV -- Hasn't pursued outpt scopes yet. Resume PPI - IV for now. HUGO HARLEY Jan 01, 2021 13:26
[2021-01-01 13:45] VITALS: BP 116/60
[2021-01-01 15:52] VITALS: BP 101/56
[2021-01-01] MEDS: PANTOPRAZOLE IV PUSH 40 MG VIAL. IVP SCH (16:36)
[2021-01-01] MEDS: ENOXAPARIN 40 MG/0.4 ML SYRINGE. SQ SCH (16:36)
[2021-01-01] MEDS: PIPERACILLIN/TAZOBACTAM 2.25 GM in IV NORMAL SALINE 50ML 50 ML IV SCH (18:53)
[2021-01-01 19:00] VITALS: BP 115/67
[2021-01-01] MEDS: ACETAMINOPHEN 325 MG TABLET. PO PRN (21:24)
[2021-01-01 23:00] VITALS: BP 124/77
--- NOTE | 2021-01-01 23:50 | NUR ---
Patient is requesting to try a regular diet tomorrow, diet is ordered as AAT, diet advanced to regular per patient request.
[2021-01-02] MEDS: PIPERACILLIN/TAZOBACTAM 2.25 GM in IV NORMAL SALINE 50ML 50 ML IV SCH ×5 (00:17→23:54)
[2021-01-02] MEDS: IV NORMAL SALINE 1000ML BAG 1,000 ML IV SCH ×2 (02:59→13:15)
[2021-01-02 03:00] VITALS: BP 110/67
[2021-01-02 07:00] VITALS: BP 119/67
[2021-01-02 07:23] LABS: BASO # 0.1 x10^3/uL (0.0-0.2); BASO % 1 % (0-3); EOS % 0 % (0-3); HEMATOCRIT 27.3 % (36.0-47.0); HEMOGLOBIN 9.1 g/dL (12.0-15.5); LYMPH # 1.5 x10^3/uL (1.0-4.8); LYMPH % 15 % (24-48); MEAN CORPUSCULAR HEMOGLOBIN 31 pg (25-35); MEAN CORPUSCULAR HGB CONC 33 g/dL (31-37); MEAN CORPUSCULAR VOLUME 92 fL (79-100); MONO # 1.4 x10^3/uL (0.0-1.1); MONO % 15 % (0-9); NEUT # 6.6 x10^3/uL (1.8-7.7); NEUT % 69 % (31-73); PLATELET COUNT 222 x10^3/uL (140-400); RED BLOOD COUNT 2.98 x10^6/uL (3.50-5.40); RED CELL DISTRIBUTION WIDTH 15.2 % (11.5-14.5); WHITE BLOOD COUNT 9.6 x10^3/uL (4.0-11.0)
[2021-01-02] MEDS: PANTOPRAZOLE IV PUSH 40 MG VIAL. IVP SCH (07:30)
[2021-01-02 07:39] LABS: ALBUMIN 2.4 g/dL (3.4-5.0); ALBUMIN/GLOBULIN RATIO 0.5 (1.0-1.7); CREATININE 1.5 mg/dL (0.6-1.0); GFR 44.7; POTASSIUM 3.9 mmol/L (3.5-5.1); TOTAL BILIRUBIN 0.3 mg/dL (0.2-1.0); TOTAL PROTEIN 7.6 g/dL (6.4-8.2)
[2021-01-02] MEDS: PANTOPRAZOLE 40 MG TABLET.DR. PO SCH (07:51)
[2021-01-02] MEDS: ACETAMINOPHEN 325 MG TABLET. PO PRN (07:51)
--- NOTE | 2021-01-02 09:58 | PDOC ---
Infectious Disease Note Vital Sign Vital Signs Vital Signs Date Time Temp Pulse Resp B/P (MAP) Pulse Ox O2 Delivery O2 Flow Rate FiO2 01/02/21 08:00 Room Air 01/02/21 07:00 101.9 91 18 119/67 (84) 99 101.9 Labs Lab Laboratory Tests Test 01/01/21 10:10 01/01/21 10:20 01/02/21 06:35 Urine Collection Type Void Urine Color Red Urine Clarity Turbid Urine pH 5.0 (<5.0-8.0) Urine Specific [place] 1.025 (1.000-1.030) Urine Protein >=300 mg/dL (NEG-TRACE) Urine Glucose (UA) Negative mg/dL (NEG) Urine Ketones (Stick) 15 mg/dL (NEG) Urine Blood Large (NEG) Urine Nitrite Positive (NEG) Urine Bilirubin Large (NEG) Urine Urobilinogen Dipstick 1.0 mg/dL (0.2 mg/dL) Urine Leukocyte Esterase Large (NEG) Urine RBC Tntc /HPF (0-2) Urine WBC 20-40 /HPF (0-4) Urine Squamous Epithelial Cells Many /LPF Urine Bacteria Moderate /HPF (0-FEW) White Blood Count 13.0 x10^3/uL (4.0-11.0) 9.6 x10^3/uL (4.0-11.0) Red Blood Count 3.69 x10^6/uL (3.50-5.40) 2.98 x10^6/uL (3.50-5.40) Hemoglobin 11.5 g/dL (12.0-15.5) 9.1 g/dL (12.0-15.5) Hematocrit 33.1 % (36.0-47.0) 27.3 % (36.0-47.0) Mean Corpuscular Volume 90 fL (79-100) 92 fL (79-100) Mean Corpuscular Hemoglobin 31 pg (25-35) 31 pg (25-35) Mean Corpuscular Hemoglobin Concent 35 g/dL (31-37) 33 g/dL (31-37) Red Cell Distribution Width 14.9 % (11.5-14.5) 15.2 % (11.5-14.5) Platelet Count 312 x10^3/uL (140-400) 222 x10^3/uL (140-400) Neutrophils (%) (Auto) 67 % (31-73) 69 % (31-73) Lymphocytes (%) (Auto) 15 % (24-48) 15 % (24-48) Monocytes (%) (Auto) 18 % (0-9) 15 % (0-9) Eosinophils (%) (Auto) 0 % (0-3) 0 % (0-3) Basophils (%) (Auto) 1 % (0-3) 1 % (0-3) Neutrophils # (Auto) 8.7 x10^3/uL (1.8-7.7) 6.6 x10^3/uL (1.8-7.7) Lymphocytes # (Auto) 1.9 x10^3/uL (1.0-4.8) 1.5 x10^3/uL (1.0-4.8) Monocytes # (Auto) 2.3 x10^3/uL (0.0-1.1) 1.4 x10^3/uL (0.0-1.1) Eosinophils # (Auto) 0.0 x10^3/uL (0.0-0.7) 0.0 x10^3/uL (0.0-0.7) Basophils # (Auto) 0.1 x10^3/uL (0.0-0.2) 0.1 x10^3/uL (0.0-0.2) Segmented Neutrophils % 69 % (35-66) Lymphocytes % 14 % (24-48) Monocytes % 17 % (0-10) Platelet Estimate Adequate (ADEQUATE) Prothrombin Time 14.0 SEC (11.7-14.0) Prothromb Time International Ratio 1.1 (0.8-1.1) Maternal Serum HCG Beta Subunit 2 mIU/mL (0-5) Sodium Level 134 mmol/L (136-145) 139 mmol/L (136-145) Potassium Level 3.3 mmol/L (3.5-5.1) 3.9 mmol/L (3.5-5.1) Chloride Level 96 mmol/L (98-107) 105 mmol/L (98-107) Carbon Dioxide Level 27 mmol/L (21-32) 25 mmol/L (21-32) Anion Gap 11 (6-14) 9 (6-14) Blood Urea Nitrogen 26 mg/dL (7-20) 15 mg/dL (7-20) Creatinine 2.0 mg/dL (0.6-1.0) 1.5 mg/dL (0.6-1.0) Estimated GFR (Cockcroft-Gault) 32.0 44.7 BUN/Creatinine Ratio 13 (6-20) 10 (6-20) Glucose Level 134 mg/dL (70-99) 79 mg/dL (70-99) Lactic Acid Level 1.1 mmol/L (0.4-2.0) Calcium Level 9.1 mg/dL (8.5-10.1) 8.0 mg/dL (8.5-10.1) Total Bilirubin 0.3 mg/dL (0.2-1.0) 0.3 mg/dL (0.2-1.0) Aspartate Amino Transf (AST/SGOT) 18 U/L (15-37) 17 U/L (15-37) Alanine Aminotransferase (ALT/SGPT) 11 U/L (14-59) 9 U/L (14-59) Alkaline Phosphatase 127 U/L (46-116) 88 U/L (46-116) Troponin I Quantitative < 0.017 ng/mL (0.000-0.055) Total Protein 10.4 g/dL (6.4-8.2) 7.6 g/dL (6.4-8.2) Albumin 3.3 g/dL (3.4-5.0) 2.4 g/dL (3.4-5.0) Albumin/Globulin Ratio 0.5 (1.0-1.7) 0.5 (1.0-1.7) Lipase 152 U/L (73-393) Objective Assessment Fever, muscle aches and fatigue following COVID injection 12/28/20. Leukocytosis - improved HIV -Followed by Dr. Sandi Mcfadden. -Taking Descovy and Prescobix - missed several doses this past week. - CD4 reportedly stable; last VL was 110 on 11/18/20. Pyuria. - Recently completed Cefdinir. - Previous UC 11/19/20 was negative. N/V - improving LEXX Plan Plan of Care Zosyn for now f/u cultures Maintain hydration Full consult to follow Thank you Feeling better. Wanting to eat more. Needs to f/u with GI as this is a recurring issue Hope to D/c abx for d/c if stable 01/03 Attending Co-Sign Attending Co-Sign The patient was seen and interviewed as well as examined at the bedside. The chart was reviewed. The case was discussed. Agree with the plan of care. ISAIAS NGUYỄN APRN Jan 02, 2021 09:58 ZEUS DAY MD Jan 02, 2021 17:25
[2021-01-02 11:00] VITALS: BP 113/56
--- NOTE | 2021-01-02 13:24 | PDOC2 ---
CONSULT Date of Consult Date of Consult DATE: 01/02/21 TIME: 13:23 Reason for Consult Reason for Consult: LEXX Referring Physician Referring Physician: Blake Identification/Chief Complaint Chief Complaint Nausea vomiting dizziness lightheadedness Source Source: Chart review, Patient History of Present Illness Reason for Visit: Patient is 50-year-old -[place] female with known past medical history of HIV positivity. She was apparently seen here on her previous hospitalization and was told she may have chronic kidney disease and a kidney biopsy was contemplated by Dr. Hawthorne. She has not followed up with us that after. UA does show proteinuria from the past. Her creatinines have been as high as 2 in the past but tend to come down to 1.5 with hydration. She recently got her second Covid shot. She reports having some nausea vomiting and she is being evaluated by GI for the same. At presentation she was noted to have a temp of 99 9 and was tachycardic to 110 in the ED. She had reported ongoing dizziness lightheadedness. Her creatinine was 2.0 once again and IV fluids were administered to where her creatinine is down to 1.5 today. She claims she was not urinating much at home but she is starting to urinate more now. She is feeling stronger. She was even able to keep oral fluids down other nausea vomiting has abated some. In the ER she was noted to have a very dark urine specimen. CT scan of the abdomen did not reveal any gross abnormalities per se. Patient denies NSAID use at home Past Medical History Past Medical History Possible chronic kidney disease Rheumatologic: No pertinent hx Infectious disease: HIV Past Surgical History Past Surgical History: Family History Family History: Hypertension Social History No ALCOHOL: none Drugs: None Current Problem List Problem List Problems Medical Problems: (1) Acute kidney injury Status: Acute (2) Hypokalemia Status: Acute (3) Nausea and vomiting Status: Acute (4) Urinary tract infection Status: Acute Current Medications Current Medications Current Medications Sodium Chloride 1,000 ml @ 1,000 mls/hr Q1H IV Last administered on 01/01/21at 10:49; Start 01/01/21 at 10:30; Stop 01/01/21 at 11:29; Status DC Ondansetron HCl (Zofran) 4 mg 1X ONCE IVP Last administered on 01/01/21at 10:49; Start 01/01/21 at 11:00; Stop 01/01/21 at 11:01; Status DC Sodium Chloride 1,000 ml @ 1,000 mls/hr 1X ONCE IV Last administered on 01/01/21at 10:50; Start 01/01/21 at 11:00; Stop 01/01/21 at 11:59; Status DC Piperacillin Sod/ Tazobactam Sod 3.375 gm/Sodium Chloride 50 ml @ 100 mls/hr 1X ONCE IV Last administered on 01/01/21at 11:03; Start 01/01/21 at 11:00; Stop 01/01/21 at 11:29; Status DC Potassium Chloride/Water 100 ml @ 50 mls/hr 1X ONCE IV Last administered on 01/01/21at 11:26; Start 01/01/21 at 11:15; Stop 01/01/21 at 13:14; Status DC Ondansetron HCl (Zofran) 4 mg PRN Q8HRS PRN IV NAUSEA/VOMITING; Start 01/01/21 at 12:00; Stop 01/02/21 at 11:59; Status DC Piperacillin Sod/ Tazobactam Sod (Zosyn Per Pharmacy) 1 each PRN DAILY PRN MC SEE COMMENTS; Start 01/01/21 at 12:30 Piperacillin Sod/ Tazobactam Sod 2.25 gm/Sodium Chloride 50 ml @ 100 mls/hr Q6HRS IV Last administered on 01/02/21at 11:23; Start 01/01/21 at 18:00 Sodium Chloride (Normal Saline Flush) 3 ml QSHIFT PRN IV AFTER MEDS AND BLOOD DRAWS; Start 01/01/21 at 12:30 Sodium Chloride 1,000 ml @ 100 mls/hr Q10H IV Last administered on 01/02/21at 13:15; Start 01/01/21 at 12:30 Ondansetron HCl (Zofran) 4 mg PRN Q4HRS PRN IV NAUSEA/VOMITING Last administered on 01/01/21at 21:24; Start 01/01/21 at 12:30 Acetaminophen (Tylenol) 650 mg PRN Q4HRS PRN PO TEMP OVER 100.4F OR MILD PAIN Last administered on 01/02/21at 07:51; Start 01/01/21 at 12:30 Acetaminophen (Tylenol Supp) 650 mg PRN Q4HRS PRN WI TEMP OVER 100.4F OR MILD PAIN; Start 01/01/21 at 12:30 Al Hydroxide/Mg Hydroxide (Mylanta Plus Xs) 30 ml PRN DAILY PRN PO HEARTBURN / GAS; Start 01/01/21 at 12:30 Sodium Monofluorophosphate (Fleet Adult) 133 ml PRN DAILY PRN WI CONSTIPATION; Start 01/01/21 at 12:30 Docusate Sodium (Colace) 100 mg PRN BID PRN PO HARD STOOLS; Start 01/01/21 at 12:30 Albuterol Sulfate (Ventolin Neb Soln) 2.5 mg PRN Q4HRS PRN NEB SHORTNESS OF BREATH; Start 01/01/21 at 12:30 Guaifenesin (Robitussin) 200 mg PRN Q4HRS PRN PO COUGH; Start 01/01/21 at 12:30 Lorazepam (Ativan) 0.5 mg PRN Q4HRS PRN PO ANXIETY / AGITATION; Start 01/01/21 at 12:30 Enoxaparin Sodium (Lovenox 40mg Syringe) 40 mg Q24H SQ Last administered on 01/01/21at 16:36; Start 01/01/21 at 16:00 Pantoprazole Sodium (PROTONIX VIAL for IV PUSH) 40 mg DAILYAC IVP Last administered on 01/01/21at 16:36; Start 01/01/21 at 13:30 Pantoprazole Sodium (Protonix) 40 mg DAILYAC PO Last administered on 01/02/21at 07:51; Start 01/02/21 at 07:30 Lactobacillus Rhamnosus (Culturelle) 1 cap BID PO ; Start 01/02/21 at 21:00 Active Scripts Active Reported Protonix (Pantoprazole Sodium) 40 Mg Tablet.dr 40 Mg PO DAILYAC Cefdinir 300 Mg Capsule 300 Mg PO BID Allergies Allergies: Coded Allergies: No Known Drug Allergies (Unverified , 07/17/19) ROS Review of System 14 point review of systems with the patient is grossly negative other than positives as outlined under HPI. Physical Exam Physical Exam General Appearance: Awake Alert Oriented x 3 In no Distress Eyes: VIsion Unchanged Conjunctiva Normal EN: No EN Drainage Mucous Memb. moist Neck: no JVD no JVP Supple no Thyromegaly CVS: S1 S2 no Murmur No Gallop No Rub no Edema Resp: no Rales no Rhonchi no Acc. Muscle use GI: BAS +ve NO Bruit Non Tender Non Distended : no CVA tenderness; no Suprapubic Tenderness SKIN: no Rashes Breast Exam deferred Mu.Sk: Adequate ROM no Muscle Atrophy Heme: Unable to palpate Obvious LAD no Splenomegaly NEURO: Good Strength and Tone Cranial Nerves II - XII grossly intact Psych: not Depressed no Active hallucination Vital Signs Vital Signs Date Time Temp Pulse Resp B/P (MAP) Pulse Ox O2 Delivery O2 Flow Rate FiO2 01/02/21 11:00 99.2 86 18 113/56 (75) 98 99.2 01/02/21 08:00 Room Air Assessment & Plan ARF: Vasomotor nephropathy associated with intravascular volume depletion from nausea vomiting. Current FLuid and E-lyte status does not necessitate emergent need for Dialysis. She appears to be responding well to IV fluids. Continue IV fluids for another day Protein gap: Suspect due to HIV. Given -[place] race, SPEP UPEP and evaluation of monoclonal myopathy will be given especially given recurrent LEXX. Abnormal UA: Recheck UA given the fact that she was oliguric at presentation Anemia: Check iron profile Intravascular volume depletion: Continue IV fluids Hypoalbuminemia: Check a UA for protein creatinine ratio Discussed Plan of Care and prognosis etc. at length with patient Labs Labs Laboratory Tests Test 01/01/21 10:10 01/01/21 10:20 01/02/21 06:35 Urine Collection Type Void Urine Color Red Urine Clarity Turbid Urine pH 5.0 (<5.0-8.0) Urine Specific [place] 1.025 (1.000-1.030) Urine Protein >=300 mg/dL (NEG-TRACE) Urine Glucose (UA) Negative mg/dL (NEG) Urine Ketones (Stick) 15 mg/dL (NEG) Urine Blood Large (NEG) Urine Nitrite Positive (NEG) Urine Bilirubin Large (NEG) Urine Urobilinogen Dipstick 1.0 mg/dL (0.2 mg/dL) Urine Leukocyte Esterase Large (NEG) Urine RBC Tntc /HPF (0-2) Urine WBC 20-40 /HPF (0-4) Urine Squamous Epithelial Cells Many /LPF Urine Bacteria Moderate /HPF (0-FEW) White Blood Count 13.0 x10^3/uL (4.0-11.0) 9.6 x10^3/uL (4.0-11.0) Red Blood Count 3.69 x10^6/uL (3.50-5.40) 2.98 x10^6/uL (3.50-5.40) Hemoglobin 11.5 g/dL (12.0-15.5) 9.1 g/dL (12.0-15.5) Hematocrit 33.1 % (36.0-47.0) 27.3 % (36.0-47.0) Mean Corpuscular Volume 90 fL (79-100) 92 fL (79-100) Mean Corpuscular Hemoglobin 31 pg (25-35) 31 pg (25-35) Mean Corpuscular Hemoglobin Concent 35 g/dL (31-37) 33 g/dL (31-37) Red Cell Distribution Width 14.9 % (11.5-14.5) 15.2 % (11.5-14.5) Platelet Count 312 x10^3/uL (140-400) 222 x10^3/uL (140-400) Neutrophils (%) (Auto) 67 % (31-73) 69 % (31-73) Lymphocytes (%) (Auto) 15 % (24-48) 15 % (24-48) Monocytes (%) (Auto) 18 % (0-9) 15 % (0-9) Eosinophils (%) (Auto) 0 % (0-3) 0 % (0-3) Basophils (%) (Auto) 1 % (0-3) 1 % (0-3) Neutrophils # (Auto) 8.7 x10^3/uL (1.8-7.7) 6.6 x10^3/uL (1.8-7.7) Lymphocytes # (Auto) 1.9 x10^3/uL (1.0-4.8) 1.5 x10^3/uL (1.0-4.8) Monocytes # (Auto) 2.3 x10^3/uL (0.0-1.1) 1.4 x10^3/uL (0.0-1.1) Eosinophils # (Auto) 0.0 x10^3/uL (0.0-0.7) 0.0 x10^3/uL (0.0-0.7) Basophils # (Auto) 0.1 x10^3/uL (0.0-0.2) 0.1 x10^3/uL (0.0-0.2) Segmented Neutrophils % 69 % (35-66) Lymphocytes % 14 % (24-48) Monocytes % 17 % (0-10) Platelet Estimate Adequate (ADEQUATE) Prothrombin Time 14.0 SEC (11.7-14.0) Prothromb Time International Ratio 1.1 (0.8-1.1) Maternal Serum HCG Beta Subunit 2 mIU/mL (0-5) Sodium Level 134 mmol/L (136-145) 139 mmol/L (136-145) Potassium Level 3.3 mmol/L (3.5-5.1) 3.9 mmol/L (3.5-5.1) Chloride Level 96 mmol/L (98-107) 105 mmol/L (98-107) Carbon Dioxide Level 27 mmol/L (21-32) 25 mmol/L (21-32) Anion Gap 11 (6-14) 9 (6-14) Blood Urea Nitrogen 26 mg/dL (7-20) 15 mg/dL (7-20) Creatinine 2.0 mg/dL (0.6-1.0) 1.5 mg/dL (0.6-1.0) Estimated GFR (Cockcroft-Gault) 32.0 44.7 BUN/Creatinine Ratio 13 (6-20) 10 (6-20) Glucose Level 134 mg/dL (70-99) 79 mg/dL (70-99) Lactic Acid Level 1.1 mmol/L (0.4-2.0) Calcium Level 9.1 mg/dL (8.5-10.1) 8.0 mg/dL (8.5-10.1) Total Bilirubin 0.3 mg/dL (0.2-1.0) 0.3 mg/dL (0.2-1.0) Aspartate Amino Transf (AST/SGOT) 18 U/L (15-37) 17 U/L (15-37) Alanine Aminotransferase (ALT/SGPT) 11 U/L (14-59) 9 U/L (14-59) Alkaline Phosphatase 127 U/L (46-116) 88 U/L (46-116) Troponin I Quantitative < 0.017 ng/mL (0.000-0.055) Total Protein 10.4 g/dL (6.4-8.2) 7.6 g/dL (6.4-8.2) Albumin 3.3 g/dL (3.4-5.0) 2.4 g/dL (3.4-5.0) Albumin/Globulin Ratio 0.5 (1.0-1.7) 0.5 (1.0-1.7) Lipase 152 U/L (73-393) Laboratory Tests Test 01/02/21 06:35 White Blood Count 9.6 x10^3/uL (4.0-11.0) Red Blood Count 2.98 x10^6/uL (3.50-5.40) Hemoglobin 9.1 g/dL (12.0-15.5) Hematocrit 27.3 % (36.0-47.0) Mean Corpuscular Volume 92 fL (79-100) Mean Corpuscular Hemoglobin 31 pg (25-35) Mean Corpuscular Hemoglobin Concent 33 g/dL (31-37) Red Cell Distribution Width 15.2 % (11.5-14.5) Platelet Count 222 x10^3/uL (140-400) Neutrophils (%) (Auto) 69 % (31-73) Lymphocytes (%) (Auto) 15 % (24-48) Monocytes (%) (Auto) 15 % (0-9) Eosinophils (%) (Auto) 0 % (0-3) Basophils (%) (Auto) 1 % (0-3) Neutrophils # (Auto) 6.6 x10^3/uL (1.8-7.7) Lymphocytes # (Auto) 1.5 x10^3/uL (1.0-4.8) Monocytes # (Auto) 1.4 x10^3/uL (0.0-1.1) Eosinophils # (Auto) 0.0 x10^3/uL (0.0-0.7) Basophils # (Auto) 0.1 x10^3/uL (0.0-0.2) Sodium Level 139 mmol/L (136-145) Potassium Level 3.9 mmol/L (3.5-5.1) Chloride Level 105 mmol/L (98-107) Carbon Dioxide Level 25 mmol/L (21-32) Anion Gap 9 (6-14) Blood Urea Nitrogen 15 mg/dL (7-20) Creatinine 1.5 mg/dL (0.6-1.0) Estimated GFR (Cockcroft-Gault) 44.7 BUN/Creatinine Ratio 10 (6-20) Glucose Level 79 mg/dL (70-99) Calcium Level 8.0 mg/dL (8.5-10.1) Total Bilirubin 0.3 mg/dL (0.2-1.0) Aspartate Amino Transf (AST/SGOT) 17 U/L (15-37) Alanine Aminotransferase (ALT/SGPT) 9 U/L (14-59) Alkaline Phosphatase 88 U/L (46-116) Total Protein 7.6 g/dL (6.4-8.2) Albumin 2.4 g/dL (3.4-5.0) Albumin/Globulin Ratio 0.5 (1.0-1.7) Review All relevant outside records, renal labs, imaging studies, telemetry/EKG's were reviewed. Images Images CT scan of the abdomen and pelvis from 01/01/2021 Findings: Lung bases: Clear lungs. No pleural or pericardial effusion. General abdomen: No ascites. No free air. Liver : Normal in size and attenuation. No masses seen. Gallbladder/Biliary Tree: Normal gallbladder. No intrahepatic or extrahepatic biliary ductal dilatation. Pancreas: Normal. Spleen: Normal in size and attenuation. Adrenal glands: Normal. Kidneys: No hydronephrosis or hydroureter. No renal masses identified. Gastrointestinal: Unremarkable. Lymph nodes: No lymphadenopathy. Vessels: Unremarkable. Pelvic organs: Unremarkable reproductive organs. No pelvic masses. The bladder is unremarkable. Soft tissues: Unremarkable. Bones: No acute or aggressive lesions. Impression: 1. No acute findings in the abdomen and pelvis. MARIANA HERRERA MD Jan 02, 2021 13:24
[2021-01-02] MEDS ORDERED: MAGNESIUM SULFATE 2GM 50 ML IV PRN (13:30)
[2021-01-02 14:59] LABS: BILIRUBIN,URINE NEGATIVE (NEG); CLARITY,URINE CLEAR; COLOR,URINE YELLOW; NITRITE,URINE NEGATIVE (NEG); PROTEIN,URINE 30 mg/dL (NEG-TRACE)
[2021-01-02 15:00] VITALS: BP 119/68
[2021-01-02 15:13] LABS: RBC,URINE >40 /HPF (0-2)
[2021-01-02 15:16] LABS: BACTERIA,URINE FEW /HPF (0-FEW)
[2021-01-02] MEDS: ENOXAPARIN 40 MG/0.4 ML SYRINGE. SQ SCH (17:07)
--- NOTE | 2021-01-02 17:24 | PDOC ---
PROGRESS NOTES Date of Service: DATE: 01/02/21 TIME: 17:19 Chief Complaint Chief Complaint Acute febrile illness Intractable nausea vomiting Urinary tract infection rule out pyelonephritis Acute renal failure secondary to most likely vasomotor nephropathy History of HIV Normocytic anemia secondary to chronic inflammation Moderate dehydration Moderate protein calorie malnutrition Plan Continue with IV PPI IV fluid resuscitation Broad-spectrum antibiotics Follow recommendations from interventional sale consultant Follow-up cultures Reassess in the a.m. Further recommendations based on the clinical course History of Present Illness History of Present Illness History of Present Illness 50 yr old female, hiv pos seen in ER WITH intractable vomiting, LEXX Bilious emesis, hasn't kept anything down since Monday Feels weak, low grade fever. No GI symptoms from time of discharge until this week. Has been taking PPI QD. No hematemesis, hematochezia, melena, diarrhea, constipation, or dysphagia. No previous scopes. No GB, liver, pancreas, or PUD history. oral temp of 99.9 and she is tachycardic in the 110's In the ED. She states that when she goes to stand up she started to feel dizzy. 01/02: No acute events reported overnight, case discussed with nursing staff patient in no acute distress no complaints during my visit Vitals Vitals Vital Signs Date Time Temp Pulse Resp B/P (MAP) Pulse Ox O2 Delivery O2 Flow Rate FiO2 01/02/21 15:00 98.8 82 18 119/68 (85) 99 98.8 01/02/21 08:00 Room Air Physical Exam General: Alert, Oriented X3, Cooperative, mild distress Lungs: Clear Abdomen: Normal bowel sounds, Soft Extremities: No cyanosis, No edema Skin: No significant lesion Labs LABS Laboratory Tests Test 01/02/21 06:35 01/02/21 13:38 01/02/21 14:46 White Blood Count 9.6 x10^3/uL (4.0-11.0) Red Blood Count 2.98 x10^6/uL (3.50-5.40) Hemoglobin 9.1 g/dL (12.0-15.5) Hematocrit 27.3 % (36.0-47.0) Mean Corpuscular Volume 92 fL (79-100) Mean Corpuscular Hemoglobin 31 pg (25-35) Mean Corpuscular Hemoglobin Concent 33 g/dL (31-37) Red Cell Distribution Width 15.2 % (11.5-14.5) Platelet Count 222 x10^3/uL (140-400) Neutrophils (%) (Auto) 69 % (31-73) Lymphocytes (%) (Auto) 15 % (24-48) Monocytes (%) (Auto) 15 % (0-9) Eosinophils (%) (Auto) 0 % (0-3) Basophils (%) (Auto) 1 % (0-3) Neutrophils # (Auto) 6.6 x10^3/uL (1.8-7.7) Lymphocytes # (Auto) 1.5 x10^3/uL (1.0-4.8) Monocytes # (Auto) 1.4 x10^3/uL (0.0-1.1) Eosinophils # (Auto) 0.0 x10^3/uL (0.0-0.7) Basophils # (Auto) 0.1 x10^3/uL (0.0-0.2) Sodium Level 139 mmol/L (136-145) Potassium Level 3.9 mmol/L (3.5-5.1) Chloride Level 105 mmol/L (98-107) Carbon Dioxide Level 25 mmol/L (21-32) Anion Gap 9 (6-14) Blood Urea Nitrogen 15 mg/dL (7-20) Creatinine 1.5 mg/dL (0.6-1.0) Estimated GFR (Cockcroft-Gault) 44.7 BUN/Creatinine Ratio 10 (6-20) Glucose Level 79 mg/dL (70-99) Calcium Level 8.0 mg/dL (8.5-10.1) Ferritin 116 ng/mL (8-252) Total Bilirubin 0.3 mg/dL (0.2-1.0) Aspartate Amino Transf (AST/SGOT) 17 U/L (15-37) Alanine Aminotransferase (ALT/SGPT) 9 U/L (14-59) Alkaline Phosphatase 88 U/L (46-116) Total Protein 7.6 g/dL (6.4-8.2) Albumin 2.4 g/dL (3.4-5.0) Albumin/Globulin Ratio 0.5 (1.0-1.7) Iron Level 11 ug/dL (50-170) Total Iron Binding Capacity 174 ug/dL (250-450) Iron Saturation 6 % (15-34) Urine Collection Type Unknown Urine Color Yellow Urine Clarity Clear Urine pH 6.0 (<5.0-8.0) Urine Specific Marlin 1.015 (1.000-1.030) Urine Protein 30 mg/dL (NEG-TRACE) Urine Glucose (UA) Negative mg/dL (NEG) Urine Ketones (Stick) Trace mg/dL (NEG) Urine Blood Large (NEG) Urine Nitrite Negative (NEG) Urine Bilirubin Negative (NEG) Urine Urobilinogen Dipstick 1.0 mg/dL (0.2 mg/dL) Urine Leukocyte Esterase Trace (NEG) Urine RBC >40 /HPF (0-2) Urine WBC 1-4 /HPF (0-4) Urine Squamous Epithelial Cells Many /LPF Urine Bacteria Few /HPF (0-FEW) Assessment and Plan Assessmemt and Plan Problems Medical Problems: (1) Acute kidney injury Status: Acute (2) Hypokalemia Status: Acute (3) Nausea and vomiting Status: Acute (4) Urinary tract infection Status: Acute Comment Review of Relevant I have reviewed the following items hero (where applicable) has been applied. Labs Laboratory Tests Test 01/01/21 10:10 01/01/21 10:20 01/02/21 06:35 01/02/21 13:38 Urine Collection Type Void Urine Color Red Urine Clarity Turbid Urine pH 5.0 (<5.0-8.0) Urine Specific Marlin 1.025 (1.000-1.030) Urine Protein >=300 mg/dL (NEG-TRACE) Urine Glucose (UA) Negative mg/dL (NEG) Urine Ketones (Stick) 15 mg/dL (NEG) Urine Blood Large (NEG) Urine Nitrite Positive (NEG) Urine Bilirubin Large (NEG) Urine Urobilinogen Dipstick 1.0 mg/dL (0.2 mg/dL) Urine Leukocyte Esterase Large (NEG) Urine RBC Tntc /HPF (0-2) Urine WBC 20-40 /HPF (0-4) Urine Squamous Epithelial Cells Many /LPF Urine Bacteria Moderate /HPF (0-FEW) White Blood Count 13.0 x10^3/uL (4.0-11.0) 9.6 x10^3/uL (4.0-11.0) Red Blood Count 3.69 x10^6/uL (3.50-5.40) 2.98 x10^6/uL (3.50-5.40) Hemoglobin 11.5 g/dL (12.0-15.5) 9.1 g/dL (12.0-15.5) Hematocrit 33.1 % (36.0-47.0) 27.3 % (36.0-47.0) Mean Corpuscular Volume 90 fL (79-100) 92 fL (79-100) Mean Corpuscular Hemoglobin 31 pg (25-35) 31 pg (25-35) Mean Corpuscular Hemoglobin Concent 35 g/dL (31-37) 33 g/dL (31-37) Red Cell Distribution Width 14.9 % (11.5-14.5) 15.2 % (11.5-14.5) Platelet Count 312 x10^3/uL (140-400) 222 x10^3/uL (140-400) Neutrophils (%) (Auto) 67 % (31-73) 69 % (31-73) Lymphocytes (%) (Auto) 15 % (24-48) 15 % (24-48) Monocytes (%) (Auto) 18 % (0-9) 15 % (0-9) Eosinophils (%) (Auto) 0 % (0-3) 0 % (0-3) Basophils (%) (Auto) 1 % (0-3) 1 % (0-3) Neutrophils # (Auto) 8.7 x10^3/uL (1.8-7.7) 6.6 x10^3/uL (1.8-7.7) Lymphocytes # (Auto) 1.9 x10^3/uL (1.0-4.8) 1.5 x10^3/uL (1.0-4.8) Monocytes # (Auto) 2.3 x10^3/uL (0.0-1.1) 1.4 x10^3/uL (0.0-1.1) Eosinophils # (Auto) 0.0 x10^3/uL (0.0-0.7) 0.0 x10^3/uL (0.0-0.7) Basophils # (Auto) 0.1 x10^3/uL (0.0-0.2) 0.1 x10^3/uL (0.0-0.2) Segmented Neutrophils % 69 % (35-66) Lymphocytes % 14 % (24-48) Monocytes % 17 % (0-10) Platelet Estimate Adequate (ADEQUATE) Prothrombin Time 14.0 SEC (11.7-14.0) Prothromb Time International Ratio 1.1 (0.8-1.1) Maternal Serum HCG Beta Subunit 2 mIU/mL (0-5) Sodium Level 134 mmol/L (136-145) 139 mmol/L (136-145) Potassium Level 3.3 mmol/L (3.5-5.1) 3.9 mmol/L (3.5-5.1) Chloride Level 96 mmol/L (98-107) 105 mmol/L (98-107) Carbon Dioxide Level 27 mmol/L (21-32) 25 mmol/L (21-32) Anion Gap 11 (6-14) 9 (6-14) Blood Urea Nitrogen 26 mg/dL (7-20) 15 mg/dL (7-20) Creatinine 2.0 mg/dL (0.6-1.0) 1.5 mg/dL (0.6-1.0) Estimated GFR (Cockcroft-Gault) 32.0 44.7 BUN/Creatinine Ratio 13 (6-20) 10 (6-20) Glucose Level 134 mg/dL (70-99) 79 mg/dL (70-99) Lactic Acid Level 1.1 mmol/L (0.4-2.0) Calcium Level 9.1 mg/dL (8.5-10.1) 8.0 mg/dL (8.5-10.1) Total Bilirubin 0.3 mg/dL (0.2-1.0) 0.3 mg/dL (0.2-1.0) Aspartate Amino Transf (AST/SGOT) 18 U/L (15-37) 17 U/L (15-37) Alanine Aminotransferase (ALT/SGPT) 11 U/L (14-59) 9 U/L (14-59) Alkaline Phosphatase 127 U/L (46-116) 88 U/L (46-116) Troponin I Quantitative < 0.017 ng/mL (0.000-0.055) Total Protein 10.4 g/dL (6.4-8.2) 7.6 g/dL (6.4-8.2) Albumin 3.3 g/dL (3.4-5.0) 2.4 g/dL (3.4-5.0) Albumin/Globulin Ratio 0.5 (1.0-1.7) 0.5 (1.0-1.7) Lipase 152 U/L (73-393) Ferritin 116 ng/mL (8-252) Iron Level 11 ug/dL (50-170) Total Iron Binding Capacity 174 ug/dL (250-450) Iron Saturation 6 % (15-34) Test 01/02/21 14:46 Urine Collection Type Unknown Urine Color Yellow Urine Clarity Clear Urine pH 6.0 (<5.0-8.0) Urine Specific Marlin 1.015 (1.000-1.030) Urine Protein 30 mg/dL (NEG-TRACE) Urine Glucose (UA) Negative mg/dL (NEG) Urine Ketones (Stick) Trace mg/dL (NEG) Urine Blood Large (NEG) Urine Nitrite Negative (NEG) Urine Bilirubin Negative (NEG) Urine Urobilinogen Dipstick 1.0 mg/dL (0.2 mg/dL) Urine Leukocyte Esterase Trace (NEG) Urine RBC >40 /HPF (0-2) Urine WBC 1-4 /HPF (0-4) Urine Squamous Epithelial Cells Many /LPF Urine Bacteria Few /HPF (0-FEW) Laboratory Tests Test 01/02/21 06:35 01/02/21 13:38 01/02/21 14:46 White Blood Count 9.6 x10^3/uL (4.0-11.0) Red Blood Count 2.98 x10^6/uL (3.50-5.40) Hemoglobin 9.1 g/dL (12.0-15.5) Hematocrit 27.3 % (36.0-47.0) Mean Corpuscular Volume 92 fL (79-100) Mean Corpuscular Hemoglobin 31 pg (25-35) Mean Corpuscular Hemoglobin Concent 33 g/dL (31-37) Red Cell Distribution Width 15.2 % (11.5-14.5) Platelet Count 222 x10^3/uL (140-400) Neutrophils (%) (Auto) 69 % (31-73) Lymphocytes (%) (Auto) 15 % (24-48) Monocytes (%) (Auto) 15 % (0-9) Eosinophils (%) (Auto) 0 % (0-3) Basophils (%) (Auto) 1 % (0-3) Neutrophils # (Auto) 6.6 x10^3/uL (1.8-7.7) Lymphocytes # (Auto) 1.5 x10^3/uL (1.0-4.8) Monocytes # (Auto) 1.4 x10^3/uL (0.0-1.1) Eosinophils # (Auto) 0.0 x10^3/uL (0.0-0.7) Basophils # (Auto) 0.1 x10^3/uL (0.0-0.2) Sodium Level 139 mmol/L (136-145) Potassium Level 3.9 mmol/L (3.5-5.1) Chloride Level 105 mmol/L (98-107) Carbon Dioxide Level 25 mmol/L (21-32) Anion Gap 9 (6-14) Blood Urea Nitrogen 15 mg/dL (7-20) Creatinine 1.5 mg/dL (0.6-1.0) Estimated GFR (Cockcroft-Gault) 44.7 BUN/Creatinine Ratio 10 (6-20) Glucose Level 79 mg/dL (70-99) Calcium Level 8.0 mg/dL (8.5-10.1) Ferritin 116 ng/mL (8-252) Total Bilirubin 0.3 mg/dL (0.2-1.0) Aspartate Amino Transf (AST/SGOT) 17 U/L (15-37) Alanine Aminotransferase (ALT/SGPT) 9 U/L (14-59) Alkaline Phosphatase 88 U/L (46-116) Total Protein 7.6 g/dL (6.4-8.2) Albumin 2.4 g/dL (3.4-5.0) Albumin/Globulin Ratio 0.5 (1.0-1.7) Iron Level 11 ug/dL (50-170) Total Iron Binding Capacity 174 ug/dL (250-450) Iron Saturation 6 % (15-34) Urine Collection Type Unknown Urine Color Yellow Urine Clarity Clear Urine pH 6.0 (<5.0-8.0) Urine Specific Marlin 1.015 (1.000-1.030) Urine Protein 30 mg/dL (NEG-TRACE) Urine Glucose (UA) Negative mg/dL (NEG) Urine Ketones (Stick) Trace mg/dL (NEG) Urine Blood Large (NEG) Urine Nitrite Negative (NEG) Urine Bilirubin Negative (NEG) Urine Urobilinogen Dipstick 1.0 mg/dL (0.2 mg/dL) Urine Leukocyte Esterase Trace (NEG) Urine RBC >40 /HPF (0-2) Urine WBC 1-4 /HPF (0-4) Urine Squamous Epithelial Cells Many /LPF Urine Bacteria Few /HPF (0-FEW) Microbiology 01/01/21 Blood Culture - Preliminary, Resulted NO GROWTH AFTER 1 DAY 01/01/21 Urine Culture - Final, Complete Medications Current Medications Sodium Chloride 1,000 ml @ 1,000 mls/hr Q1H IV Last administered on 01/01/21at 10:49; Start 01/01/21 at 10:30; Stop 01/01/21 at 11:29; Status DC Ondansetron HCl (Zofran) 4 mg 1X ONCE IVP Last administered on 01/01/21at 10:49; Start 01/01/21 at 11:00; Stop 01/01/21 at 11:01; Status DC Sodium Chloride 1,000 ml @ 1,000 mls/hr 1X ONCE IV Last administered on 01/01/21at 10:50; Start 01/01/21 at 11:00; Stop 01/01/21 at 11:59; Status DC Piperacillin Sod/ Tazobactam Sod 3.375 gm/Sodium Chloride 50 ml @ 100 mls/hr 1X ONCE IV Last administered on 01/01/21at 11:03; Start 01/01/21 at 11:00; Stop 01/01/21 at 11:29; Status DC Potassium Chloride/Water 100 ml @ 50 mls/hr 1X ONCE IV Last administered on 01/01/21at 11:26; Start 01/01/21 at 11:15; Stop 01/01/21 at 13:14; Status DC Ondansetron HCl (Zofran) 4 mg PRN Q8HRS PRN IV NAUSEA/VOMITING; Start 01/01/21 at 12:00; Stop 01/02/21 at 11:59; Status DC Piperacillin Sod/ Tazobactam Sod (Zosyn Per Pharmacy) 1 each PRN DAILY PRN MC SEE COMMENTS; Start 01/01/21 at 12:30 Piperacillin Sod/ Tazobactam Sod 2.25 gm/Sodium Chloride 50 ml @ 100 mls/hr Q6H RS IV Last administered on 01/02/21at 17:05; Start 01/01/21 at 18:00 Sodium Chloride (Normal Saline Flush) 3 ml QSHIFT PRN IV AFTER MEDS AND BLOOD DRAWS; Start 01/01/21 at 12:30 Sodium Chloride 1,000 ml @ 100 mls/hr Q10H IV Last administered on 01/02/21at 13:15; Start 01/01/21 at 12:30 Ondansetron HCl (Zofran) 4 mg PRN Q4HRS PRN IV NAUSEA/VOMITING Last administered on 01/01/21at 21:24; Start 01/01/21 at 12:30 Acetaminophen (Tylenol) 650 mg PRN Q4HRS PRN PO TEMP OVER 100.4F OR MILD PAIN Last administered on 01/02/21at 07:51; Start 01/01/21 at 12:30 Acetaminophen (Tylenol Supp) 650 mg PRN Q4HRS PRN [place] TEMP OVER 100.4F OR MILD PAIN; Start 01/01/21 at 12:30 Al Hydroxide/Mg Hydroxide (Mylanta Plus Xs) 30 ml PRN DAILY PRN PO HEARTBURN / GAS; Start 01/01/21 at 12:30 Sodium Monofluorophosphate (Fleet Adult) 133 ml PRN DAILY PRN OH CONSTIPATION; Start 01/01/21 at 12:30; Stop 01/02/21 at 13:36; Status DC Docusate Sodium (Colace) 100 mg PRN BID PRN PO HARD STOOLS; Start 01/01/21 at 12:30 Albuterol Sulfate (Ventolin Neb Soln) 2.5 mg PRN Q4HRS PRN NEB SHORTNESS OF BREATH; Start 01/01/21 at 12:30 Guaifenesin (Robitussin) 200 mg PRN Q4HRS PRN PO COUGH; Start 01/01/21 at 12:30 Lorazepam (Ativan) 0.5 mg PRN Q4HRS PRN PO ANXIETY / AGITATION; Start 01/01/21 at 12:30 Enoxaparin Sodium (Lovenox 40mg Syringe) 40 mg Q24H SQ Last administered on 01/02/21at 17:07; Start 01/01/21 at 16:00 Pantoprazole Sodium (PROTONIX VIAL for IV PUSH) 40 mg DAILYAC IVP Last administered on 01/01/21at 16:36; Start 01/01/21 at 13:30 Pantoprazole Sodium (Protonix) 40 mg DAILYAC PO Last administered on 01/02/21at 07:51; Start 01/02/21 at 07:30 Lactobacillus Rhamnosus (Culturelle) 1 cap BID PO ; Start 01/02/21 at 21:00; Status Cancel Magnesium Sulfate 50 ml @ 25 mls/hr PRN DAILY PRN IV for Mag < 1.7 on am labs; Start 01/02/21 at 13:30 Active Scripts Active Reported Protonix (Pantoprazole Sodium) 40 Mg Tablet.dr 40 Mg PO DAILYAC Cefdinir 300 Mg Capsule 300 Mg PO BID Vitals/I & O Vital Sign - Last 24 Hours 01/01/21 01/01/21 01/01/21 01/02/21 19:00 20:00 23:00 03:00 Temp 100.2 99.7 99.0 100.2 99.7 99.0 Pulse 88 90 80 Resp 16 14 14 B/P (MAP) 115/67 (83) 124/77 (93) 110/67 (81) Pulse Ox 99 98 99 O2 Delivery Room Air Room Air Room Air Room Air 01/02/21 01/02/21 01/02/21 01/02/21 07:00 08:00 11:00 15:00 Temp 101.9 99.2 98.8 101.9 99.2 98.8 Pulse 91 86 82 Resp 18 18 18 B/P (MAP) 119/67 (84) 113/56 (75) 119/68 (85) Pulse Ox 99 98 99 O2 Delivery Room Air Room Air Intake and Output 01/01/21 01/01/21 01/02/21 15:00 23:00 07:00 Intake Total 2100 ml 120 ml Output Total 0 ml 0 ml Balance 2100 ml 120 ml 0 ml Justicifation of Admission Dx: Justifications for Admission: Justification of Admission Dx: Yes Sepsis: Dehydration CLARENCE DAWSON MD Jan 02, 2021 17:24
[2021-01-02 19:00] VITALS: BP 112/70
--- NOTE | 2021-01-02 20:38 | CONS ---
DATE OF CONSULTATION: 01/02/2021 REQUESTING PHYSICIAN: Dr. Lozano. REASON FOR CONSULTATION: Urinary tract infection and vomiting. HISTORY OF PRESENT ILLNESS: The patient is a 50-year-old female who was recently admitted last month for nausea and vomiting. She was started on a PPI for suspected acid reflux. An EGD and colonoscopy were recommended. She started to feel better and returned to work. About a week ago, she started not to feel well again. On 12/28, she received the COVID injection. She developed fatigue, muscle aches, subjective fevers and chills. She took Tylenol for relief. Nausea and vomiting reoccurred. She was unable to keep anything down including medications. A CT abdomen and pelvis showed no acute findings. She had elevated WBC count of 13,000 and pyuria. She was started on empiric Zosyn. The patient has a history of HIV. She is on Prezcobix and Descovy. She is followed by Dr. Sandi Manuel. Her last viral load on 11/19 was a 110. CD4 reportedly around 500 in 09/2020. She denies needing to take Bactrim, dapsone or azithromycin. She recently completed cefdinir for possible UTI. PAST MEDICAL HISTORY: HIV, chronic kidney disease. PAST SURGICAL HISTORY: section, tonsillectomy.. FAMILY HISTORY: Heart disease. SOCIAL HISTORY: The patient is single. She has a daughter. She does not smoke. She is a nurse. ALLERGIES: No known drug allergies. MEDICATIONS: Reviewed on DEC includes Zosyn, pantoprazole. REVIEW OF SYSTEMS: Today, the patient says she is feeling a little bit better. The nausea and vomiting seem to have settled down. She is tolerating some light foods. She denies change of diet habits. She plans to schedule the EGD and colonoscopy. She denies diarrhea. Denies rash or itching. Denies cough, shortness of air, chest discomfort. Denies headaches. Other review of systems negative. PHYSICAL EXAMINATION: VITAL SIGNS: Temperature 101.9, blood pressure 119/67, heart rate 91, respiratory rate 18, pulse oximetry is 99% on room air. GENERAL: The patient is propped up in bed, alert, smiling. HEENT: Pupils equally round, normal conjunctivae. Oropharynx pink and moist. No thrush. NECK: Supple. LUNGS: Clear to auscultation. HEART: Normal S1, S2. ABDOMEN: Soft, nontender with bowel sounds present. EXTREMITIES: No gross edema or cyanosis. SKIN: Warm to touch. No signs of generalized rash. NEUROLOGIC: Alert and answering questions appropriately. LABORATORY DATA: WBC 9.6 from 13.0 on admission; hemoglobin 9.1; platelets 222,000; segs 69%, lymphocytes 14%. Sodium 139, potassium 3.9, creatinine 1.5, BUN 15, glucose 79. Total bilirubin 0.3, AST 17, ALT 9. Troponin less than 0.017, albumin 2.4. Urinalysis positive for wbc's, leukocyte esterase, nitrite, many bacteria and squamous epithelial cells. Blood cultures from 01/01, negative to date. Abdomen and pelvis showed no acute findings. IMPRESSION: 1. Fever, muscle aches and fatigue following COVID injection 12/28/2020. 2. Leukocytosis, improved. 3. Human immunodeficiency virus, followed by Dr. Sandi Manuel, taking Descovy and Prezcobix. She missed several doses this past week due to nausea and vomiting. 4. Pyuria. 5. Recurrent nausea and vomiting, improving. 6. Acute kidney injury. PLAN: 1. Continue empiric Zosyn for now. 2. Follow up cultures. 3. Maintain hydration. 4. Follow up with GI as directed. 3. Hope to discontinue antibiotics for discharge if stable on 01/03. Thank you, Dr. Lozano, for asking us to participate in this patient's care. Should you have further questions or concerns, please call. The patient is seen and examined and plan of care implemented by Dr. Zeus Day. ZEUS DAY MD DR: JULITO/doyle JOB#: [id number] / [id number] LONNY
[2021-01-02] MEDS ORDERED: LACTOBACILLUS RHAMNOSUS GG 1 CAPSULE. PO SCH (21:00)
[2021-01-02 23:00] VITALS: BP 107/66
[2021-01-03 03:00] VITALS: BP 118/64
[2021-01-03] MEDS: PIPERACILLIN/TAZOBACTAM 2.25 GM in IV NORMAL SALINE 50ML 50 ML IV SCH (06:17)
[2021-01-03] MEDS: IV NORMAL SALINE 1000ML BAG 1,000 ML IV SCH ×2 (06:18→17:55)
[2021-01-03 07:00] VITALS: BP 119/69
[2021-01-03] MEDS: PANTOPRAZOLE IV PUSH 40 MG VIAL. IVP SCH (07:30)
[2021-01-03 08:02] LABS: ALBUMIN 2.1 g/dL (3.4-5.0); CALCIUM 8.1 mg/dL (8.5-10.1); CREATININE 1.3 mg/dL (0.6-1.0); GFR 52.7; PHOSPHORUS 2.8 mg/dL (2.6-4.7); POTASSIUM 3.8 mmol/L (3.5-5.1)
[2021-01-03] MEDS: PANTOPRAZOLE 40 MG TABLET.DR. PO SCH (09:10)
[2021-01-03 11:00] VITALS: BP 117/78
--- NOTE | 2021-01-03 11:13 | PDOC ---
Infectious Disease Note Subjective Subjective Feeling better today, more herself. Keeping po down, no more N/V. No further fevers/aches. Hoping to go home soon. ROS ROS as mentioned above Vital Sign Vital Signs Vital Signs Date Time Temp Pulse Resp B/P (MAP) Pulse Ox O2 Delivery O2 Flow Rate FiO2 01/03/21 07:00 97.9 73 18 119/69 (86) 99 97.9 01/03/21 03:00 Room Air Physical Exam PHYSICAL EXAM GENERAL: Propped up in bed, alert, smiling. HEENT: Pupils equally round, normal conjunctivae. Oropharynx pink and moist. No thrush. NECK: Supple. LUNGS: Clear to auscultation. HEART: Normal S1, S2. ABDOMEN: Soft, nontender with bowel sounds present. EXTREMITIES: No gross edema or cyanosis. SKIN: Warm to touch. No signs of generalized rash. NEUROLOGIC: Alert and answering questions appropriately. I Labs Lab Laboratory Tests Test 01/02/21 13:38 01/02/21 14:46 01/03/21 06:35 Iron Level 11 ug/dL (50-170) Total Iron Binding Capacity 174 ug/dL (250-450) Iron Saturation 6 % (15-34) Urine Collection Type Unknown Urine Color Yellow Urine Clarity Clear Urine pH 6.0 (<5.0-8.0) Urine Specific Bastian 1.015 (1.000-1.030) Urine Protein 30 mg/dL (NEG-TRACE) Urine Glucose (UA) Negative mg/dL (NEG) Urine Ketones (Stick) Trace mg/dL (NEG) Urine Blood Large (NEG) Urine Nitrite Negative (NEG) Urine Bilirubin Negative (NEG) Urine Urobilinogen Dipstick 1.0 mg/dL (0.2 mg/dL) Urine Leukocyte Esterase Trace (NEG) Urine RBC >40 /HPF (0-2) Urine WBC 1-4 /HPF (0-4) Urine Squamous Epithelial Cells Many /LPF Urine Bacteria Few /HPF (0-FEW) Hemoglobin 8.4 g/dL (12.0-15.5) Sodium Level 142 mmol/L (136-145) Potassium Level 3.8 mmol/L (3.5-5.1) Chloride Level 107 mmol/L (98-107) Carbon Dioxide Level 25 mmol/L (21-32) Anion Gap 10 (6-14) Blood Urea Nitrogen 13 mg/dL (7-20) Creatinine 1.3 mg/dL (0.6-1.0) Estimated GFR (Cockcroft-Gault) 52.7 Glucose Level 93 mg/dL (70-99) Calcium Level 8.1 mg/dL (8.5-10.1) Phosphorus Level 2.8 mg/dL (2.6-4.7) Magnesium Level 1.7 mg/dL (1.8-2.4) Albumin 2.1 g/dL (3.4-5.0) Micro Microbiology 01/01/21 Blood Culture - Preliminary, Resulted NO GROWTH AFTER 1 DAY 01/01/21 Urine Culture - no growth. Objective Assessment Fever, muscle aches and fatigue following COVID injection 12/28/20. improved Leukocytosis - improved HIV -Followed by Dr. Sandi Mcfadden. -Taking Descovy and Prescobix - missed several doses this past week. - CD4 reportedly stable; last VL was 110 on 11/18/20. Pyuria. UC 01/01 no growth. - Recently completed Cefdinir. - Previous UC 11/19/20 was negative. N/V - improved LEXX - renal following. Plan Plan of Care DC empiric Zosyn. Urine culture negative. Maintain hydration. Follow up with GI as directed. Cont off abx Can F/u with Dr. Mcfadden Attending Co-Sign Attending Co-Sign The patient was seen and interviewed as well as examined at the bedside. The chart was reviewed. The case was discussed. Agree with the plan of care. ISAIAS NGUYỄN APRN Jan 03, 2021 11:13 ZEUS DAY MD Jan 03, 2021 14:27
--- NOTE | 2021-01-03 11:18 | PDOC ---
DATE OF SERVICE: DOS: DATE: 01/03/21 TIME: 11:13 SUBJECTIVE ROS Acute kidney injury Patient doing well overall. She feels much better CVS: no Orthopnea, no CP RESP: no SOB, no GUNN GI: no Nausea, no Vomiting : no Dysuria, no Urgency OBJECTIVE Vital Signs Vital Signs Date Time Temp Pulse Resp B/P (MAP) Pulse Ox O2 Delivery O2 Flow Rate FiO2 01/03/21 07:00 97.9 73 18 119/69 (86) 99 97.9 01/03/21 03:00 Room Air PHYSICAL EXAM Physical Exam General Appearance: Awake Alert Oriented x 3 In no Distress Eyes: VIsion Unchanged Conjunctiva Normal EN: No EN Drainage Mucous Memb. moist Neck: no JVD no JVP Supple no Thyromegaly CVS: S1 S2 no Murmur No Gallop No Rub no Edema Resp: no Rales no Rhonchi no Acc. Muscle use GI: BS +ve NO Bruit Non Tender Non Distended : no CVA tenderness; no Suprapubic Tenderness Assessment & Plan ARF: Vasomotor nephropathy associated with intravascular volume depletion from nausea vomiting. Current FLuid and E-lyte status does not necessitate emergent need for Dialysis. Watch off of IV fluids since she has not had any further nausea vomiting and see how well she can keep herself hydrated orally Protein gap: Suspect due to HIV. Given -[place] race, SPEP UPEP and evaluation of monoclonal myopathy will be given especially given recurrent LEXX. Abnormal UA: Recheck UA still appears somewhat abnormal although still has significant epithelial cells. Patient claims she and Dr. Hawthorne have discussed potential kidney biopsy. INR is normal, platelets are adequate. Will defer decision regarding kidney biopsy to Dr. Hawthorne Anemia: Severe iron deficiency. Start IV iron Intravascular volume depletion: Better after IV fluids, watch off of IV fluids and watch ability to maintain adequate hydration orally Hypoalbuminemia: Check a UA for protein creatinine ratio/quantitate on 24-hour urine collection Discussed Plan of Care and prognosis etc. at length with patient COMMENT/RELEVANT DATA Meds Current Medications Medications (Trade) Dose Ordered Sig/Joel Start Time Stop Time Status Last Admin Dose Admin Acetaminophen (Tylenol Supp) 650 mg PRN Q4HRS PRN 01/01/21 12:30 Acetaminophen (Tylenol) 650 mg PRN Q4HRS PRN 01/01/21 12:30 01/02/21 07:51 650 MG Al Hydroxide/Mg Hydroxide (Mylanta Plus Xs) 30 ml PRN DAILY PRN 01/01/21 12:30 Albuterol Sulfate (Ventolin Neb Soln) 2.5 mg PRN Q4HRS PRN 01/01/21 12:30 Docusate Sodium (Colace) 100 mg PRN BID PRN 01/01/21 12:30 Enoxaparin Sodium (Lovenox 40mg Syringe) 40 mg Q24H 01/01/21 16:00 01/02/21 17:07 40 MG Guaifenesin (Robitussin) 200 mg PRN Q4HRS PRN 01/01/21 12:30 Lactobacillus Rhamnosus (Culturelle) 1 cap BID 01/02/21 21:00 Cancel Lorazepam (Ativan) 0.5 mg PRN Q4HRS PRN 01/01/21 12:30 Magnesium Sulfate 50 ml @ 25 mls/hr PRN DAILY PRN 01/02/21 13:30 Ondansetron HCl (Zofran) 4 mg PRN Q4HRS PRN 01/01/21 12:30 01/01/21 21:24 4 MG Pantoprazole Sodium (PROTONIX VIAL for IV PUSH) 40 mg DAILYAC 01/01/21 13:30 01/01/21 16:36 40 MG Pantoprazole Sodium (Protonix) 40 mg DAILYAC 01/02/21 07:30 01/03/21 09:10 40 MG Piperacillin Sod/ Tazobactam Sod (Zosyn Per Pharmacy) 1 each PRN DAILY PRN 01/01/21 12:30 Piperacillin Sod/ Tazobactam Sod 2.25 gm/Sodium Chloride 50 ml @ 100 mls/hr Q6HRS 01/01/21 18:00 01/03/21 07:21 DC 01/03/21 06:17 100 MLS/HR Piperacillin Sod/ Tazobactam Sod 3.375 gm/Sodium Chloride 50 ml @ 100 mls/hr 1X ONCE 01/01/21 11:00 01/01/21 11:29 DC 01/01/21 11:03 100 MLS/HR Potassium Chloride/Water 100 ml @ 50 mls/hr 1X ONCE 01/01/21 11:15 01/01/21 13:14 DC 01/01/21 11:26 50 MLS/HR Sodium Monofluorophosphate (Fleet Adult) 133 ml PRN DAILY PRN 01/01/21 12:30 01/02/21 13:36 DC Sodium Chloride 1,000 ml @ 100 mls/hr Q10H 01/01/21 12:30 01/03/21 06:18 100 MLS/HR Sodium Chloride (Normal Saline Flush) 3 ml QSHIFT PRN 01/01/21 12:30 Lab Laboratory Tests Test 01/02/21 13:38 01/02/21 14:46 01/03/21 06:35 Iron Level 11 ug/dL (50-170) Total Iron Binding Capacity 174 ug/dL (250-450) Iron Saturation 6 % (15-34) Urine Collection Type Unknown Urine Color Yellow Urine Clarity Clear Urine pH 6.0 (<5.0-8.0) Urine Specific [place] 1.015 (1.000-1.030) Urine Protein 30 mg/dL (NEG-TRACE) Urine Glucose (UA) Negative mg/dL (NEG) Urine Ketones (Stick) Trace mg/dL (NEG) Urine Blood Large (NEG) Urine Nitrite Negative (NEG) Urine Bilirubin Negative (NEG) Urine Urobilinogen Dipstick 1.0 mg/dL (0.2 mg/dL) Urine Leukocyte Esterase Trace (NEG) Urine RBC >40 /HPF (0-2) Urine WBC 1-4 /HPF (0-4) Urine Squamous Epithelial Cells Many /LPF Urine Bacteria Few /HPF (0-FEW) Hemoglobin 8.4 g/dL (12.0-15.5) Sodium Level 142 mmol/L (136-145) Potassium Level 3.8 mmol/L (3.5-5.1) Chloride Level 107 mmol/L (98-107) Carbon Dioxide Level 25 mmol/L (21-32) Anion Gap 10 (6-14) Blood Urea Nitrogen 13 mg/dL (7-20) Creatinine 1.3 mg/dL (0.6-1.0) Estimated GFR (Cockcroft-Gault) 52.7 Glucose Level 93 mg/dL (70-99) Calcium Level 8.1 mg/dL (8.5-10.1) Phosphorus Level 2.8 mg/dL (2.6-4.7) Magnesium Level 1.7 mg/dL (1.8-2.4) Albumin 2.1 g/dL (3.4-5.0) Results All relevant outside records, renal labs, imaging studies, telemetry/EKG's were reviewed. Justicifation of Admission Dx: Justifications for Admission: Justification of Admission Dx: Yes Sepsis: Dehydration MARIANA HERRERA MD Jan 03, 2021 11:18
--- NOTE | 2021-01-03 11:46 | PDOC ---
PROGRESS NOTES Date of Service: DATE: 01/03/21 TIME: 11:44 Chief Complaint Chief Complaint Acute febrile illness Intractable nausea vomiting Urinary tract infection rule out pyelonephritis Acute renal failure secondary to most likely vasomotor nephropathy History of HIV Normocytic anemia secondary to chronic inflammation Moderate dehydration Moderate protein calorie malnutrition Plan Continue with IV PPI IV fluid resuscitation will be discontinued Broad-spectrum antibiotics discontinued as well as recommended by apartment leasing consultant UPEP requested by Dr Ryder Follow-up cultures Reassess in the a.m. Further recommendations based on the clinical course Hopefully discharge in the next 24 to 48 hours History of Present Illness History of Present Illness History of Present Illness 50 yr old female, hiv pos seen in ER WITH intractable vomiting, LEXX Bilious emesis, hasn't kept anything down since Monday Feels weak, low grade fever. No GI symptoms from time of discharge until this week. Has been taking PPI QD. No hematemesis, hematochezia, melena, diarrhea, constipation, or dysphagia. No previous scopes. No GB, liver, pancreas, or PUD history. oral temp of 99.9 and she is tachycardic in the 110's In the ED. She states that when she goes to stand up she started to feel dizzy. 01/02: No acute events reported overnight, case discussed with nursing staff patient in no acute distress no complaints during my visit 01/03: Patient with no acute events reported overnight. She has not had febrile episodes in the last 24 hours. Suspicion for paraproteinemia by our nephrology apartment leasing consultant prompted a urinary protein electrophoresis collection for 24 hours which will finish later in the evening today. If no further acute events she may be able to be discharge in the next 24 to 48 hours. She is going to talk to our ID apartment leasing consultant regarding CD4 counts and other laboratory data that she would like to have ordered. Vitals Vitals Vital Signs Date Time Temp Pulse Resp B/P (MAP) Pulse Ox O2 Delivery O2 Flow Rate FiO2 01/03/21 11:00 97.7 74 18 117/78 (91) 98 97.7 01/03/21 07:40 Room Air Physical Exam Physical Exam GENERAL: Propped up in bed, alert, smiling. HEENT: Pupils equally round, normal conjunctivae. Oropharynx pink and moist. No thrush. NECK: Supple. LUNGS: Clear to auscultation. HEART: Normal S1, S2. ABDOMEN: Soft, nontender with bowel sounds present. EXTREMITIES: No gross edema or cyanosis. SKIN: Warm to touch. No signs of generalized rash. NEUROLOGIC: Alert and answering questions appropriately. I General: Alert, Oriented X3, Cooperative, mild distress Lungs: Clear Abdomen: Normal bowel sounds, Soft Extremities: No cyanosis, No edema Skin: No significant lesion Labs LABS Laboratory Tests Test 01/02/21 13:38 01/02/21 14:46 01/03/21 06:35 Iron Level 11 ug/dL (50-170) Total Iron Binding Capacity 174 ug/dL (250-450) Iron Saturation 6 % (15-34) Urine Collection Type Unknown Urine Color Yellow Urine Clarity Clear Urine pH 6.0 (<5.0-8.0) Urine Specific [place] 1.015 (1.000-1.030) Urine Protein 30 mg/dL (NEG-TRACE) Urine Glucose (UA) Negative mg/dL (NEG) Urine Ketones (Stick) Trace mg/dL (NEG) Urine Blood Large (NEG) Urine Nitrite Negative (NEG) Urine Bilirubin Negative (NEG) Urine Urobilinogen Dipstick 1.0 mg/dL (0.2 mg/dL) Urine Leukocyte Esterase Trace (NEG) Urine RBC >40 /HPF (0-2) Urine WBC 1-4 /HPF (0-4) Urine Squamous Epithelial Cells Many /LPF Urine Bacteria Few /HPF (0-FEW) Hemoglobin 8.4 g/dL (12.0-15.5) Sodium Level 142 mmol/L (136-145) Potassium Level 3.8 mmol/L (3.5-5.1) Chloride Level 107 mmol/L (98-107) Carbon Dioxide Level 25 mmol/L (21-32) Anion Gap 10 (6-14) Blood Urea Nitrogen 13 mg/dL (7-20) Creatinine 1.3 mg/dL (0.6-1.0) Estimated GFR (Cockcroft-Gault) 52.7 Glucose Level 93 mg/dL (70-99) Calcium Level 8.1 mg/dL (8.5-10.1) Phosphorus Level 2.8 mg/dL (2.6-4.7) Magnesium Level 1.7 mg/dL (1.8-2.4) Albumin 2.1 g/dL (3.4-5.0) Assessment and Plan Assessmemt and Plan Problems Medical Problems: (1) Acute kidney injury Status: Acute (2) Hypokalemia Status: Acute (3) Nausea and vomiting Status: Acute (4) Urinary tract infection Status: Acute Comment Review of Relevant I have reviewed the following items hero (where applicable) has been applied. Labs Laboratory Tests Test 01/02/21 06:35 01/02/21 13:38 01/02/21 14:46 01/03/21 06:35 White Blood Count 9.6 x10^3/uL (4.0-11.0) Red Blood Count 2.98 x10^6/uL (3.50-5.40) Hemoglobin 9.1 g/dL (12.0-15.5) 8.4 g/dL (12.0-15.5) Hematocrit 27.3 % (36.0-47.0) Mean Corpuscular Volume 92 fL (79-100) Mean Corpuscular Hemoglobin 31 pg (25-35) Mean Corpuscular Hemoglobin Concent 33 g/dL (31-37) Red Cell Distribution Width 15.2 % (11.5-14.5) Platelet Count 222 x10^3/uL (140-400) Neutrophils (%) (Auto) 69 % (31-73) Lymphocytes (%) (Auto) 15 % (24-48) Monocytes (%) (Auto) 15 % (0-9) Eosinophils (%) (Auto) 0 % (0-3) Basophils (%) (Auto) 1 % (0-3) Neutrophils # (Auto) 6.6 x10^3/uL (1.8-7.7) Lymphocytes # (Auto) 1.5 x10^3/uL (1.0-4.8) Monocytes # (Auto) 1.4 x10^3/uL (0.0-1.1) Eosinophils # (Auto) 0.0 x10^3/uL (0.0-0.7) Basophils # (Auto) 0.1 x10^3/uL (0.0-0.2) Sodium Level 139 mmol/L (136-145) 142 mmol/L (136-145) Potassium Level 3.9 mmol/L (3.5-5.1) 3.8 mmol/L (3.5-5.1) Chloride Level 105 mmol/L (98-107) 107 mmol/L (98-107) Carbon Dioxide Level 25 mmol/L (21-32) 25 mmol/L (21-32) Anion Gap 9 (6-14) 10 (6-14) Blood Urea Nitrogen 15 mg/dL (7-20) 13 mg/dL (7-20) Creatinine 1.5 mg/dL (0.6-1.0) 1.3 mg/dL (0.6-1.0) Estimated GFR (Cockcroft-Gault) 44.7 52.7 BUN/Creatinine Ratio 10 (6-20) Glucose Level 79 mg/dL (70-99) 93 mg/dL (70-99) Calcium Level 8.0 mg/dL (8.5-10.1) 8.1 mg/dL (8.5-10.1) Ferritin 116 ng/mL (8-252) Total Bilirubin 0.3 mg/dL (0.2-1.0) Aspartate Amino Transf (AST/SGOT) 17 U/L (15-37) Alanine Aminotransferase (ALT/SGPT) 9 U/L (14-59) Alkaline Phosphatase 88 U/L (46-116) Total Protein 7.6 g/dL (6.4-8.2) Albumin 2.4 g/dL (3.4-5.0) 2.1 g/dL (3.4-5.0) Albumin/Globulin Ratio 0.5 (1.0-1.7) Iron Level 11 ug/dL (50-170) Total Iron Binding Capacity 174 ug/dL (250-450) Iron Saturation 6 % (15-34) Urine Collection Type Unknown Urine Color Yellow Urine Clarity Clear Urine pH 6.0 (<5.0-8.0) Urine Specific [place] 1.015 (1.000-1.030) Urine Protein 30 mg/dL (NEG-TRACE) Urine Glucose (UA) Negative mg/dL (NEG) Urine Ketones (Stick) Trace mg/dL (NEG) Urine Blood Large (NEG) Urine Nitrite Negative (NEG) Urine Bilirubin Negative (NEG) Urine Urobilinogen Dipstick 1.0 mg/dL (0.2 mg/dL) Urine Leukocyte Esterase Trace (NEG) Urine RBC >40 /HPF (0-2) Urine WBC 1-4 /HPF (0-4) Urine Squamous Epithelial Cells Many /LPF Urine Bacteria Few /HPF (0-FEW) Phosphorus Level 2.8 mg/dL (2.6-4.7) Magnesium Level 1.7 mg/dL (1.8-2.4) Laboratory Tests Test 01/02/21 13:38 01/02/21 14:46 01/03/21 06:35 Iron Level 11 ug/dL (50-170) Total Iron Binding Capacity 174 ug/dL (250-450) Iron Saturation 6 % (15-34) Urine Collection Type Unknown Urine Color Yellow Urine Clarity Clear Urine pH 6.0 (<5.0-8.0) Urine Specific [place] 1.015 (1.000-1.030) Urine Protein 30 mg/dL (NEG-TRACE) Urine Glucose (UA) Negative mg/dL (NEG) Urine Ketones (Stick) Trace mg/dL (NEG) Urine Blood Large (NEG) Urine Nitrite Negative (NEG) Urine Bilirubin Negative (NEG) Urine Urobilinogen Dipstick 1.0 mg/dL (0.2 mg/dL) Urine Leukocyte Esterase Trace (NEG) Urine RBC >40 /HPF (0-2) Urine WBC 1-4 /HPF (0-4) Urine Squamous Epithelial Cells Many /LPF Urine Bacteria Few /HPF (0-FEW) Hemoglobin 8.4 g/dL (12.0-15.5) Sodium Level 142 mmol/L (136-145) Potassium Level 3.8 mmol/L (3.5-5.1) Chloride Level 107 mmol/L (98-107) Carbon Dioxide Level 25 mmol/L (21-32) Anion Gap 10 (6-14) Blood Urea Nitrogen 13 mg/dL (7-20) Creatinine 1.3 mg/dL (0.6-1.0) Estimated GFR (Cockcroft-Gault) 52.7 Glucose Level 93 mg/dL (70-99) Calcium Level 8.1 mg/dL (8.5-10.1) Phosphorus Level 2.8 mg/dL (2.6-4.7) Magnesium Level 1.7 mg/dL (1.8-2.4) Albumin 2.1 g/dL (3.4-5.0) Microbiology 01/01/21 Blood Culture - Preliminary, Resulted NO GROWTH AFTER 1 DAY 01/01/21 Urine Culture - Final, Complete Medications Current Medications Sodium Chloride 1,000 ml @ 1,000 mls/hr Q1H IV Last administered on 01/01/21at 10:49; Start 01/01/21 at 10:30; Stop 01/01/21 at 11:29; Status DC Ondansetron HCl (Zofran) 4 mg 1X ONCE IVP Last administered on 01/01/21at 10:49; Start 01/01/21 at 11:00; Stop 01/01/21 at 11:01; Status DC Sodium Chloride 1,000 ml @ 1,000 mls/hr 1X ONCE IV Last administered on 01/01/21at 10:50; Start 01/01/21 at 11:00; Stop 01/01/21 at 11:59; Status DC Piperacillin Sod/ Tazobactam Sod 3.375 gm/Sodium Chloride 50 ml @ 100 mls/hr 1X ONCE IV Last administered on 01/01/21at 11:03; Start 01/01/21 at 11:00; Stop 01/01/21 at 11:29; Status DC Potassium Chloride/Water 100 ml @ 50 mls/hr 1X ONCE IV Last administered on 01/01/21at 11:26; Start 01/01/21 at 11:15; Stop 01/01/21 at 13:14; Status DC Ondansetron HCl (Zofran) 4 mg PRN Q8HRS PRN IV NAUSEA/VOMITING; Start 01/01/21 at 12:00; Stop 01/02/21 at 11:59; Status DC Piperacillin Sod/ Tazobactam Sod (Zosyn Per Pharmacy) 1 each PRN DAILY PRN MC SEE COMMENTS; Start 01/01/21 at 12:30; Stop 01/03/21 at 11:14; Status DC Piperacillin Sod/ Tazobactam Sod 2.25 gm/Sodium Chloride 50 ml @ 100 mls/hr Q6HRS IV Last administered on 01/03/21at 06:17; Start 01/01/21 at 18:00; Stop 01/03/21 at 07:21; Status DC Sodium Chloride (Normal Saline Flush) 3 ml QSHIFT PRN IV AFTER MEDS AND BLOOD DRAWS; Start 01/01/21 at 12:30 Sodium Chloride 1,000 ml @ 100 mls/hr Q10H IV Last administered on 01/03/21at 06:18; Start 01/01/21 at 12:30 Ondansetron HCl (Zofran) 4 mg PRN Q4HRS PRN IV NAUSEA/VOMITING Last admini stered on 01/01/21at 21:24; Start 01/01/21 at 12:30 Acetaminophen (Tylenol) 650 mg PRN Q4HRS PRN PO TEMP OVER 100.4F OR MILD PAIN Last administered on 01/02/21at 07:51; Start 01/01/21 at 12:30 Acetaminophen (Tylenol Supp) 650 mg PRN Q4HRS PRN [place] TEMP OVER 100.4F OR MILD PAIN; Start 01/01/21 at 12:30 Al Hydroxide/Mg Hydroxide (Mylanta Plus Xs) 30 ml PRN DAILY PRN PO HEARTBURN / GAS; Start 01/01/21 at 12:30 Sodium Monofluorophosphate (Fleet Adult) 133 ml PRN DAILY PRN [place] CONSTIPATION; Start 01/01/21 at 12:30; Stop 01/02/21 at 13:36; Status DC Docusate Sodium (Colace) 100 mg PRN BID PRN PO HARD STOOLS; Start 01/01/21 at 12:30 Albuterol Sulfate (Ventolin Neb Soln) 2.5 mg PRN Q4HRS PRN NEB SHORTNESS OF BREATH; Start 01/01/21 at 12:30 Guaifenesin (Robitussin) 200 mg PRN Q4HRS PRN PO COUGH; Start 01/01/21 at 12:30 Lorazepam (Ativan) 0.5 mg PRN Q4HRS PRN PO ANXIETY / AGITATION; Start 01/01/21 at 12:30 Enoxaparin Sodium (Lovenox 40mg Syringe) 40 mg Q24H SQ Last administered on 01/02/21at 17:07; Start 01/01/21 at 16:00 Pantoprazole Sodium (PROTONIX VIAL for IV PUSH) 40 mg DAILYAC IVP Last administered on 01/01/21at 16:36; Start 01/01/21 at 13:30 Pantoprazole Sodium (Protonix) 40 mg DAILYAC PO Last administered on 01/03/21at 09:10; Start 01/02/21 at 07:30 Lactobacillus Rhamnosus (Culturelle) 1 cap BID PO ; Start 01/02/21 at 21:00; Status Cancel Magnesium Sulfate 50 ml @ 25 mls/hr PRN DAILY PRN IV for Mag < 1.7 on am labs; Start 01/02/21 at 13:30 Iron Sucrose 200 mg/Sodium Chloride 110 ml @ 55 mls/hr 3X/WEEK IV ; Start 01/03/21 at 13:00; Stop 01/13/21 at 10:59 Active Scripts Active Reported Protonix (Pantoprazole Sodium) 40 Mg Tablet.dr 40 Mg PO DAILYAC Cefdinir 300 Mg Capsule 300 Mg PO BID Vitals/I & O Vital Sign - Last 24 Hours 01/02/21 01/02/21 01/02/21 01/02/21 15:00 19:00 20:00 23:00 Temp 98.8 99.6 99.6 98.8 99.6 99.6 Pulse 82 90 89 Resp 18 18 18 B/P (MAP) 119/68 (85) 112/70 (84) 107/66 (80) Pulse Ox 99 99 99 O2 Delivery Room Air Room Air Room Air 01/03/21 01/03/21 01/03/21 01/03/21 03:00 07:00 07:40 11:00 Temp 99.8 97.9 97.7 99.8 97.9 97.7 Pulse 88 73 74 Resp 16 18 18 B/P (MAP) 118/64 (82) 119/69 (86) 117/78 (91) Pulse Ox 99 99 98 O2 Delivery Room Air Room Air Justicifation of Admission Dx: Justifications for Admission: Justification of Admission Dx: Yes Sepsis: Dehydration CLARENCE DAWSON MD Jan 03, 2021 11:46
[2021-01-03] MEDS ORDERED: IRON SUCROSE COMPLEX 200 MG in IV NORMAL SALINE 100ML 100 ML IV SCH (13:00)
[2021-01-03 15:00] VITALS: BP 123/75
[2021-01-03] MEDS: ENOXAPARIN 40 MG/0.4 ML SYRINGE. SQ SCH (17:55)
[2021-01-03 19:00] VITALS: BP 111/69
[2021-01-03 23:00] VITALS: BP 120/73
[2021-01-04] MEDS: IV NORMAL SALINE 1000ML BAG 1,000 ML IV SCH ×2 (00:30→08:20)
[2021-01-04 03:00] VITALS: BP 119/70
[2021-01-04 07:00] VITALS: BP 114/52
[2021-01-04] MEDS: PANTOPRAZOLE IV PUSH 40 MG VIAL. IVP SCH (07:30)
[2021-01-04 07:33] LABS: ALBUMIN 2.3 g/dL (3.4-5.0); CALCIUM 7.9 mg/dL (8.5-10.1); CREATININE 1.2 mg/dL (0.6-1.0); GFR 57.8; PHOSPHORUS 4.1 mg/dL (2.6-4.7); POTASSIUM 3.7 mmol/L (3.5-5.1)
[2021-01-04] MEDS: PANTOPRAZOLE 40 MG TABLET.DR. PO SCH (08:17)
--- NOTE | 2021-01-04 09:26 | PDOC ---
DATE OF SERVICE DATE: 01/04/21 TIME: 09:26 SUBJECTIVE ROS states feeling good, no complaints or concerns this morning OBJECTIVE Vital Signs Vital Signs Date Time Temp Pulse Resp B/P (MAP) Pulse Ox O2 Delivery O2 Flow Rate FiO2 01/04/21 08:25 Room Air 01/04/21 07:00 98.0 77 18 114/52 (72) 97 98.0 I & 0 Intake and Output 01/04/21 07:00 Intake Total 400 ml Output Total 650 ml Balance -250 ml Intake Oral 400 ml Output Urine Total 650 ml # Voids 3 PHYSICAL EXAM Physical Exam GENERAL: no acute distress. HEENT: Anicteric. Oral mucosa moist. NECK: Supple, no JVD. LUNGS: Clear bilaterally. Non labored HEART: S1, S2. ABDOMEN: Soft, nontender, nondistended, EXTREMITIES: No edema, DERMATOLOGIC: Warm, dry. No generalized rash. NEUROLOGIC: Alert and oriented x 3, grossly nonfocal. PSYCHIATRIC: Cooperative, appropriate mood and affect No [place], No SP or CVA tenderness DIAGNOSIS/ASSESSMENT Assessment & Plan LEXX -Pre-renal, improving , supportive care, maintain hydration, avoid n ephrotoxins Fever, muscle aches and fatigue POA- following COVID infection 12/28/20. improved HIV --Followed by Dr. Sandi Mcfadden. Currently on Descovy and Prescobix - missed several doses this past week. - CD4 reportedly stable; last VL was 110 on 11/18/20. CKD stage 3 a - elevated Cr in 2019 per [facility] records. She was admitted with LEXX in Nov 2020, US Echogenic appearing bilateral kidneys likely medical renal disease. - was advised follow up with us / Nephrology. She didnt schedule follow up appt Hematuria- present at last hospitalization as well , Renal US (11/29), CT scan 01/01 unremarkable . 24 Hr Urine report pending. Consider Renal Bx (if Dcd can be done as OP ) if Pt agreeable , she should call and schedule follow up appt Anemia- Noted drop in Hgb, Severe Fe Def (in Nov), repeat labs confirm- further su per primary COMMENT/RELEVANT DATA Meds Current Medications Medications (Trade) Dose Ordered Sig/Joel Start Time Stop Time Status Last Admin Dose Admin Acetaminophen (Tylenol Supp) 650 mg PRN Q4HRS PRN 01/01/21 12:30 Acetaminophen (Tylenol) 650 mg PRN Q4HRS PRN 01/01/21 12:30 01/02/21 07:51 650 MG Al Hydroxide/Mg Hydroxide (Mylanta Plus Xs) 30 ml PRN DAILY PRN 01/01/21 12:30 Albuterol Sulfate (Ventolin Neb Soln) 2.5 mg PRN Q4HRS PRN 01/01/21 12:30 Docusate Sodium (Colace) 100 mg PRN BID PRN 01/01/21 12:30 Enoxaparin Sodium (Lovenox 40mg Syringe) 40 mg Q24H 01/01/21 16:00 01/03/21 17:55 40 MG Guaifenesin (Robitussin) 200 mg PRN Q4HRS PRN 01/01/21 12:30 Iron Sucrose 200 mg/Sodium Chloride 110 ml @ 55 mls/hr 3X/WEEK 01/03/21 13:00 01/13/21 10:59 01/03/21 12:23 55 MLS/HR Lactobacillus Rhamnosus (Culturelle) 1 cap BID 01/02/21 21:00 Cancel Lorazepam (Ativan) 0.5 mg PRN Q4HRS PRN 01/01/21 12:30 Magnesium Sulfate 50 ml @ 25 mls/hr PRN DAILY PRN 01/02/21 13:30 Ondansetron HCl (Zofran) 4 mg PRN Q4HRS PRN 01/01/21 12:30 01/01/21 21:24 4 MG Pantoprazole Sodium (PROTONIX VIAL for IV PUSH) 40 mg DAILYAC 01/01/21 13:30 01/01/21 16:36 40 MG Pantoprazole Sodium (Protonix) 40 mg DAILYAC 01/02/21 07:30 01/04/21 08:17 40 MG Piperacillin Sod/ Tazobactam Sod (Zosyn Per Pharmacy) 1 each PRN DAILY PRN 01/01/21 12:30 01/03/21 11:14 DC Piperacillin Sod/ Tazobactam Sod 2.25 gm/Sodium Chloride 50 ml @ 100 mls/hr Q6HRS 01/01/21 18:00 01/03/21 07:21 DC 01/03/21 06:17 100 MLS/HR Piperacillin Sod/ Tazobactam Sod 3.375 gm/Sodium Chloride 50 ml @ 100 mls/hr 1X ONCE 01/01/21 11:00 01/01/21 11:29 DC 01/01/21 11:03 100 MLS/HR Potassium Chloride/Water 100 ml @ 50 mls/hr 1X ONCE 01/01/21 11:15 01/01/21 13:14 DC 01/01/21 11:26 50 MLS/HR Sodium Monofluorophosphate (Fleet Adult) 133 ml PRN DAILY PRN 01/01/21 12:30 01/02/21 13:36 DC Sodium Chloride 1,000 ml @ 100 mls/hr Q10H 01/01/21 12:30 01/03/21 17:55 100 MLS/HR Sodium Chloride (Normal Saline Flush) 3 ml QSHIFT PRN 01/01/21 12:30 Lab Laboratory Tests Test 01/04/21 06:50 Sodium Level 142 mmol/L (136-145) Potassium Level 3.7 mmol/L (3.5-5.1) Chloride Level 106 mmol/L (98-107) Carbon Dioxide Level 28 mmol/L (21-32) Anion Gap 8 (6-14) Blood Urea Nitrogen 12 mg/dL (7-20) Creatinine 1.2 mg/dL (0.6-1.0) Estimated GFR (Cockcroft-Gault) 57.8 Glucose Level 103 mg/dL (70-99) Calcium Level 7.9 mg/dL (8.5-10.1) Phosphorus Level 4.1 mg/dL (2.6-4.7) Magnesium Level 1.8 mg/dL (1.8-2.4) Albumin 2.3 g/dL (3.4-5.0) Results All relevant outside records, renal labs, imaging studies, telemetry/EKG's were reviewed. Justicifation of Admission Dx: Justifications for Admission: Justification of Admission Dx: Yes Sepsis: Dehydration CORWIN GRANDA MD Jan 04, 2021 09:26
--- NOTE | 2021-01-04 10:02 | PDOC ---
[employer] PROGRESS NOTE Date of Service DOS: DATE: 01/04/21 TIME: 09:59 Chief Complaint Chief Complaint Acute febrile illness Intractable nausea vomiting Urinary tract infection rule out pyelonephritis Acute renal failure secondary to most likely vasomotor nephropathy History of HIV Normocytic anemia secondary to chronic inflammation Moderate dehydration Moderate protein calorie malnutrition Plan Continue with IV PPI IV fluid resuscitation will be discontinued Broad-spectrum antibiotics discontinued as well as recommended by personal consultant UPEP requested by Dr Ryder Follow-up cultures Reassess in the a.m. Further recommendations based on the clinical course Hopefully discharge in the next 24 to 48 hours History of Present Illness History of Present Illness Ms Palma is a 50-year-old female w/ PMHx HIV, GERD? who was admitted for LEXX Bilious emesis, hasn't kept anything down since Monday Previousyl seen for suspected acid reflux. An EGD and colonoscopy were recommended. She started to feel better and returned to work. On 12/28, she received the COVID injection. She developed fatigue, muscle aches, subjective fevers and chills. She took Tylenol for relief. Nausea and vomiting reoccurred. She was unable to keep anything down including medications. A CT abdomen and pelvis showed no acute findings. She had elevated WBC count of 13,000 and pyuria. She was started on empiric Zosyn. She is on Prezcobix and Descovy. She is followed by Dr. Sandi Manuel. Her last viral load on 11/19 was a 110. CD4 reportedly around 500 in 09/2020. She denies needing to take Bactrim, dapsone or azithromycin. She recently completed cefdinir for possible UTI. Temp 99.9 and she is tachycardic in the 110's In the ED. She states that when she goes to stand up she started to feel dizzy. 01/02: No acute events reported overnight, case discussed with nursing staff patient in no acute distress no complaints during my visit 01/03: Patient with no acute events reported overnight. She has not had febrile episodes in the last 24 hours. Suspicion for paraproteinemia by our nephrology personal consultant prompted a urinary protein electrophoresis collection for 24 hours which will finish later in the evening today. If no further acute events she may be able to be discharge in the next 24 to 48 hours. She is going to talk to our ID personal consultant regarding CD4 counts and other laboratory data that she would like to have ordered. Afebrile. No N/V. She feels much better today, no complaints. Has outpatient GI and ID follow up scheduled. Vitals/I&O Vitals/I&O: Vital Signs Date Time Temp Pulse Resp B/P (MAP) Pulse Ox O2 Delivery O2 Flow Rate FiO2 01/04/21 08:25 Room Air 01/04/21 07:00 98.0 77 18 114/52 (72) 97 98.0 I & O 01/03/21 01/03/21 01/04/21 15:00 23:00 07:00 Intake Total 400 ml Output Total 650 ml Balance -250 ml Physical Exam Physical Exam: GENERAL: Propped up in bed, alert, smiling. HEENT: Pupils equally round, normal conjunctivae. Oropharynx pink and moist. No thrush. NECK: Supple. LUNGS: Clear to auscultation. HEART: Normal S1, S2. ABDOMEN: Soft, nontender with bowel sounds present. EXTREMITIES: No gross edema or cyanosis. SKIN: Warm to touch. No signs of generalized rash. NEUROLOGIC: Alert and answering questions appropriately. I General: Alert, Oriented X3, Cooperative, mild distress Lungs: Clear Abdomen: Normal bowel sounds, Soft Extremities: No cyanosis, No edema Skin: No significant lesion Labs Labs: Laboratory Tests Test 01/04/21 06:50 Sodium Level 142 mmol/L (136-145) Potassium Level 3.7 mmol/L (3.5-5.1) Chloride Level 106 mmol/L (98-107) Carbon Dioxide Level 28 mmol/L (21-32) Anion Gap 8 (6-14) Blood Urea Nitrogen 12 mg/dL (7-20) Creatinine 1.2 mg/dL (0.6-1.0) Estimated GFR (Cockcroft-Gault) 57.8 Glucose Level 103 mg/dL (70-99) Calcium Level 7.9 mg/dL (8.5-10.1) Phosphorus Level 4.1 mg/dL (2.6-4.7) Magnesium Level 1.8 mg/dL (1.8-2.4) Albumin 2.3 g/dL (3.4-5.0) Assessment and Plan Assessmemt and Plan Problems Medical Problems: (1) Acute kidney injury Status: Acute (2) Hypokalemia Status: Acute (3) Nausea and vomiting Status: Acute (4) Urinary tract infection Status: Acute Comment Review of Relevant I have reviewed the following items hero (where applicable) has been applied. Medications: Current Medications Medications (Trade) Dose Ordered Sig/Joel Route PRN Reason Start Time Stop Time Status Last Admin Dose Admin Iron Sucrose 200 mg/Sodium Chloride 110 ml @ 55 mls/hr 3X/WEEK IV 01/03/21 13:00 01/13/21 10:59 01/03/21 12:23 Justifications for Admission General Conditions Other justification for admit: INTRACTABLE VOMITING Other Justification ROCKY POLANCO MD Jan 04, 2021 10:02
--- NOTE | 2021-01-04 10:39 | PDOC ---
Infectious Disease Note Subjective Subjective Feeling better today, more herself. Keeping po down, no more N/V. No further fevers/aches. Hoping to go home soon. Vital Sign Vital Signs Vital Signs Date Time Temp Pulse Resp B/P (MAP) Pulse Ox O2 Delivery O2 Flow Rate FiO2 01/04/21 08:25 Room Air 01/04/21 07:00 98.0 77 18 114/52 (72) 97 98.0 Physical Exam PHYSICAL EXAM GENERAL: Propped up in bed, alert, smiling. HEENT: Pupils equally round, normal conjunctivae. Oropharynx pink and moist. No thrush. NECK: Supple. LUNGS: Clear to auscultation. HEART: Normal S1, S2. ABDOMEN: Soft, nontender with bowel sounds present. EXTREMITIES: No gross edema or cyanosis. SKIN: Warm to touch. No signs of generalized rash. NEUROLOGIC: Alert and answering questions appropriately. I Labs Lab Laboratory Tests Test 01/04/21 06:50 Sodium Level 142 mmol/L (136-145) Potassium Level 3.7 mmol/L (3.5-5.1) Chloride Level 106 mmol/L (98-107) Carbon Dioxide Level 28 mmol/L (21-32) Anion Gap 8 (6-14) Blood Urea Nitrogen 12 mg/dL (7-20) Creatinine 1.2 mg/dL (0.6-1.0) Estimated GFR (Cockcroft-Gault) 57.8 Glucose Level 103 mg/dL (70-99) Calcium Level 7.9 mg/dL (8.5-10.1) Phosphorus Level 4.1 mg/dL (2.6-4.7) Magnesium Level 1.8 mg/dL (1.8-2.4) Albumin 2.3 g/dL (3.4-5.0) Micro Microbiology 01/02/21 Urine Culture - Final, Complete 01/01/21 Blood Culture - Preliminary, Resulted NO GROWTH AFTER 2 DAYS Objective Assessment Fever, muscle aches and fatigue following COVID injection 12/28/20. improved Leukocytosis - improved HIV -Followed by Dr. Sandi Mcfadden. -Taking Descovy and Prescobix - missed several doses this past week. - CD4 reportedly stable; last VL was 110 on 11/18/20. Pyuria. UC 01/01 no growth. - Recently completed Cefdinir. - Previous UC 11/19/20 was negative. N/V - improved LEXX - renal following. Plan Plan of Care Urine culture negative. Maintain hydration. Follow up with GI as directed. Cont off abx Can F/u with WOOD Llamas MD Jan 04, 2021 10:38
[2021-01-04] MEDS ORDERED: DARU1TAB PO (10:41)
[2021-01-04] MEDS ORDERED: EMTR1TAB12 PO (10:41)
--- NOTE | 2021-01-04 10:44 | PDOC3 ---
Discharge Summary Visit Information Date of Admission: Jan 01, 2021 Date of Discharge: Jan 04, 2021 Admitting Diagnosis: LEXX Final Diagnosis Problems Medical Problems: (1) Acute kidney injury Status: Acute (2) Hypokalemia Status: Acute (3) Nausea and vomiting Status: Acute (4) Urinary tract infection Status: Acute Brief Hospital Course Allergies Allergies Coded Allergies Type Severity Reaction Last Updated Verified No Known Drug Allergies 07/17/19 No Vital Signs Vital Signs Date Time Temp Pulse Resp B/P (MAP) Pulse Ox O2 Delivery O2 Flow Rate FiO2 01/04/21 08:25 Room Air 01/04/21 07:00 98.0 77 18 114/52 (72) 97 98.0 Lab Results Laboratory Tests Test 01/02/21 13:38 01/02/21 14:46 01/03/21 06:35 01/04/21 06:50 Iron Level 11 ug/dL (50-170) Total Iron Binding Capacity 174 ug/dL (250-450) Iron Saturation 6 % (15-34) Urine Collection Type Unknown Urine Color Yellow Urine Clarity Clear Urine pH 6.0 (<5.0-8.0) Urine Specific Barry 1.015 (1.000-1.030) Urine Protein 30 mg/dL (NEG-TRACE) Urine Glucose (UA) Negative mg/dL (NEG) Urine Ketones (Stick) Trace mg/dL (NEG) Urine Blood Large (NEG) Urine Nitrite Negative (NEG) Urine Bilirubin Negative (NEG) Urine Urobilinogen Dipstick 1.0 mg/dL (0.2 mg/dL) Urine Leukocyte Esterase Trace (NEG) Urine RBC >40 /HPF (0-2) Urine WBC 1-4 /HPF (0-4) Urine Squamous Epithelial Cells Many /LPF Urine Bacteria Few /HPF (0-FEW) Hemoglobin 8.4 g/dL (12.0-15.5) Sodium Level 142 mmol/L (136-145) 142 mmol/L (136-145) Potassium Level 3.8 mmol/L (3.5-5.1) 3.7 mmol/L (3.5-5.1) Chloride Level 107 mmol/L (98-107) 106 mmol/L (98-107) Carbon Dioxide Level 25 mmol/L (21-32) 28 mmol/L (21-32) Anion Gap 10 (6-14) 8 (6-14) Blood Urea Nitrogen 13 mg/dL (7-20) 12 mg/dL (7-20) Creatinine 1.3 mg/dL (0.6-1.0) 1.2 mg/dL (0.6-1.0) Estimated GFR (Cockcroft-Gault) 52.7 57.8 Glucose Level 93 mg/dL (70-99) 103 mg/dL (70-99) Calcium Level 8.1 mg/dL (8.5-10.1) 7.9 mg/dL (8.5-10.1) Phosphorus Level 2.8 mg/dL (2.6-4.7) 4.1 mg/dL (2.6-4.7) Magnesium Level 1.7 mg/dL (1.8-2.4) 1.8 mg/dL (1.8-2.4) Albumin 2.1 g/dL (3.4-5.0) 2.3 g/dL (3.4-5.0) Laboratory Tests Test 01/04/21 06:50 Sodium Level 142 mmol/L (136-145) Potassium Level 3.7 mmol/L (3.5-5.1) Chloride Level 106 mmol/L (98-107) Carbon Dioxide Level 28 mmol/L (21-32) Anion Gap 8 (6-14) Blood Urea Nitrogen 12 mg/dL (7-20) Creatinine 1.2 mg/dL (0.6-1.0) Estimated GFR (Cockcroft-Gault) 57.8 Glucose Level 103 mg/dL (70-99) Calcium Level 7.9 mg/dL (8.5-10.1) Phosphorus Level 4.1 mg/dL (2.6-4.7) Magnesium Level 1.8 mg/dL (1.8-2.4) Albumin 2.3 g/dL (3.4-5.0) Brief Hospital Course Ms Palma is a 50-year-old female w/ PMHx HIV, GERD? who was admitted for LEXX Bilious emesis, hasn't kept anything down since Monday Previousyl seen for suspected acid reflux. An EGD and colonoscopy were recommended. She started to feel better and returned to work. On 12/28, she received the COVID injection. She developed fatigue, muscle aches, subjective fevers and chills. She took Tylenol for relief. Nausea and vomiting reoccurred. She was unable to keep anything down including medications. A CT abdomen and pelvis showed no acute findings. She had elevated WBC count of 13,000 and pyuria. She was started on empiric Zosyn. She is on Prezcobix and Descovy. She is followed by Dr. Sandi Manuel. Her last viral load on 11/19 was a 110. CD4 reportedly around 500 in 09/2020. She denies needing to take Bactrim, dapsone or azithromycin. She recently completed cefdinir for possible UTI. Temp 99.9 and she is tachycardic in the 110's In the ED. She states that when she goes to stand up she started to feel dizzy. 01/02: No acute events reported overnight, case discussed with nursing staff patient in no acute distress no complaints during my visit 01/03: Patient with no acute events reported overnight. She has not had febrile episodes in the last 24 hours. Suspicion for paraproteinemia by our nephrology plan consultant prompted a urinary protein electrophoresis collection for 24 hours which will finish later in the evening today. If no further acute events she may be able to be discharge in the next 24 to 48 hours. She is going to talk to our ID plan consultant regarding CD4 counts and other laboratory data that she would like to have ordered. Afebrile. No N/V. She feels much better today, no complaints. Has outpatient GI and ID follow up scheduled. Problem list: Acute febrile illness Intractable nausea vomiting Urinary tract infection rule out pyelonephritis Acute renal failure secondary to most likely vasomotor nephropathy History of HIV Normocytic anemia secondary to chronic inflammation Moderate dehydration Moderate protein calorie malnutrition Consult: ID, nephrology Greater than 30 minutes spent on d/c home Discharge Information Condition at Discharge: Improved Follow Up: Weeks (1) Disposition/Orders: D/C to Home Scheduled Darunavir/Cobicistat (Prezcobix 800 mg-150 mg Tablet) 1 Each Tablet, 1 TAB PO DAILY for Chronic infection for 30 Days, #30 Ref 11 Prescribed by: ROCKY POLANCO MD on 01/04/21 1041 Emtricitabine/Tenofov Alafenam (Descovy 200-25 mg Tablet) 1 Each Tablet, 1 TAB PO DAILY for Chronic infection for 30 Days, #30 Ref 11 Prescribed by: ROCKY POLANCO MD on 01/04/21 1041 Pantoprazole Sodium (Protonix ) 40 Mg Tablet.dr, 40 MG PO DAILYAC for GERD, (Reported) Entered as Reported by: BATSHEVA MEEHAN on 11/19/20 1210 Last Action: Continued on 01/01/211948 by ALEIDA KNIGHT MD Discontinued Medications Cefdinir (Cefdinir) 300 Mg Capsule, 300 MG PO BID for UTI, Ref 0 (Reported) Entered as Reported by: BATSHEVA MEEHAN on 11/19/201209 Last Action: HELD on 01/01/211948 by ALEIDA KNIGHT MD Justicifation of Admission Dx: Justifications for Admission: Justification of Admission Dx: Yes Sepsis: Dehydration ROCKY POLANCO MD Jan 04, 2021 10:44
[2021-01-04 11:00] VITALS: BP 125/76
--- NOTE | 2021-01-04 11:42 | PDOC ---
Date of Service: DATE: 01/04/21 TIME: 11:40 Subjective: Subjective: "Not bad." Feels much better than when admitted, tolerating diet w/o n/v. Objective: Vital Signs: Vital Signs Date Time Temp Pulse Resp B/P (MAP) Pulse Ox O2 Delivery O2 Flow Rate FiO2 01/04/21 11:00 97.5 78 18 125/76 (92) 100 Room Air 97.5 Labs: BLOOD CULTURE Preliminary NO GROWTH AFTER 3 DAYS PE: GEN: NAD LUNGS: CTAB HEART: RRR ABD: NABS, S/ND/NT NEURO/PSYCH: A & O 3 A/P: Recurrent n/v - resolved ACD/YOLIE, CKD, HIV GERD - on PPI -- DC per primary on PPI. Follow-up for EGD and colonoscopy - she'd like to wait til after second COVID vaccine in 01/22. Justicifation of Admission Dx: Justifications for Admission: Justification of Admission Dx: Yes Sepsis: Dehydration HUGO LAYNE Jan 04, 2021 11:42
--- NOTE | 2021-01-04 12:56 | NUR ---
Pt left unit at 1255 by ambulation via private vehicle. Pt's IV removed without complication, VSS. Discharge paperwork discussed with pt, additional questions addressed.
[2021-01-04 13:05] LABS: KAPPA LAMBDA RATIO 1.23 (0.26-1.65); LAMBDA FREE 55.9 mg/L (5.7-26.3)
[2021-01-04 15:29] LABS: TOTAL SERUM CREATININE 1.19 mg/dL (0.57-1.00); TOTAL URINE CREATININE 42.5 mg/dL (Not Estab.); UR PROTEIN 16.2 mg/dL (Not Estab.)
--- NOTE | 2021-01-04 15:36 | NUR ---
SW following for discharge planning. Spoke with RN and reviewed chart. Pt to discharge home self-care today, 01/04. Pt on room air and no oral abx needed upon discharge per ID note. No SW needs identified.
[2021-01-04 17:11] LABS: COMMENT IMMUNOFIX SERUM Note: (.); IMMUNOGLOBULIN A 463 mg/dL (87-352); IMMUNOGLOBULIN G 2140 mg/dL (586-1602); IMMUNOGLOBULIN M 31 mg/dL (26-217)
[2021-01-04 20:22] LABS: ALBUM 2.7 g/dL (2.9-4.4); ALPHA 1 0.2 g/dL (0.0-0.4); ALPHA 2 0.9 g/dL (0.4-1.0); GAMMA 2.1 g/dL (0.4-1.8); PROTEIN TOTAL 6.9 g/dL (6.0-8.5); SPEP AG RATIO 0.6 (0.7-1.7)
[2021-01-06 06:00] LABS: ALBUMIN UR 17.9 % (.); ALPHA 1 UR 3.8 % (.); ALPHA 2 UR 16.7 % (.); BETA UR 36.8 % (.); GAMMA UR 24.8 % (.); PROTEIN 24 UR 436 mg/24 hr (30-150)
== END 2021-01-04 12:58 | disposition home or self-care (01) | DRG 871 ==
LOC: ER 10:08 → 6 SOUTH 11:50
PROVIDERS: ADMIT Family Medicine; ATTEND Family Medicine
DX: A41.9 Sepsis, unspecified organism (principal); N17.0 Acute kidney failure with tubular necrosis; E44.0 Moderate protein-calorie malnutrition; N39.0 Urinary tract infection, site not specified; D64.9 Anemia, unspecified; E61.1 Iron deficiency; E86.0 Dehydration; E87.6 Hypokalemia; K21.9 Gastro-esophageal reflux disease without esophagitis; N18.9 Chronic kidney disease, unspecified; Z21 Asymptomatic human immunodeficiency virus [HIV] infection status; Z82.49 Family history of ischemic heart disease and other diseases of the circulatory system; Z68.26 Body mass index [BMI] 26.0-26.9, adult; Z90.49 Acquired absence of other specified parts of digestive tract
CPT/HCPCS: 36415; 71045; 74176; 80053; 80069; 81001; 82575; 82728; 82784; 83520; 83540; 83550; 83605; 83690; 83735; 84156; 84165; 84166; 84484; 84702; 85007; 85018; 85025; 85610; 86334; 86335; 87040; 87086; 93005; 96365; 96368; 96375; C9113; J1650; J1756; J2405; J2543; J3480; J7030; 99285-25; G0378

== ENCOUNTER → 2021-03-18 | Outpatient (CLI) | payer OTHER ==
[~2021-03-18] MED LIST changes: +DARU1TAB PO; +EMTR1TAB12 PO
[2021-03-18 14:19] LABS: ALBUMIN 3.2 g/dL (3.4-5.0); ALBUMIN/GLOBULIN RATIO 0.5 (1.0-1.7); C-REACTIVE PROTEIN 43.7 mg/L (0-3.3); CREATININE 1.6 mg/dL (0.6-1.0); GFR 41.5; POTASSIUM 4.1 mmol/L (3.5-5.1); TOTAL BILIRUBIN 0.2 mg/dL (0.2-1.0); TOTAL PROTEIN 9.2 g/dL (6.4-8.2)
[2021-03-18 14:20] LABS: BASO % 0 % (0-3); EOS % 1 % (0-3); HEMATOCRIT 30.6 % (36.0-47.0); HEMOGLOBIN 10.6 g/dL (12.0-15.5); LYMPH # 1.3 x10^3/uL (1.0-4.8); LYMPH % 15 % (24-48); MEAN CORPUSCULAR HEMOGLOBIN 31 pg (25-35); MEAN CORPUSCULAR HGB CONC 35 g/dL (31-37); MEAN CORPUSCULAR VOLUME 90 fL (79-100); MONO # 0.9 x10^3/uL (0.0-1.1); MONO % 11 % (0-9); NEUT # 6.2 x10^3/uL (1.8-7.7); NEUT % 73 % (31-73); PLATELET COUNT 263 x10^3/uL (140-400); RED BLOOD COUNT 3.42 x10^6/uL (3.50-5.40); RED CELL DISTRIBUTION WIDTH 15.2 % (11.5-14.5); WHITE BLOOD COUNT 8.5 x10^3/uL (4.0-11.0)
== END ==
LOC: LAB 13:18
PROVIDERS: ATTEND Family Medicine
DX: R50.9 Fever, unspecified (principal); B20 Human immunodeficiency virus [HIV] disease
CPT/HCPCS: 36415; 80053; 85025; 85651; 86140; 87536

== ENCOUNTER → 2021-10-27 | Outpatient (CLI) | payer OTHER ==
[2021-10-27 11:50] LABS: BASO % 1 % (0-3); EOS # 0.2 x10^3/uL (0.0-0.7); EOS % 3 % (0-3); HEMATOCRIT 29.2 % (36.0-47.0); HEMOGLOBIN 9.7 g/dL (12.0-15.5); LYMPH % 31 % (24-48); MEAN CORPUSCULAR HEMOGLOBIN 30 pg (25-35); MEAN CORPUSCULAR HGB CONC 33 g/dL (31-37); MEAN CORPUSCULAR VOLUME 89 fL (79-100); MONO # 0.8 x10^3/uL (0.0-1.1); MONO % 11 % (0-9); NEUT # 3.6 x10^3/uL (1.8-7.7); NEUT % 55 % (31-73); PLATELET COUNT 322 x10^3/uL (140-400); RED BLOOD COUNT 3.27 x10^6/uL (3.50-5.40); RED CELL DISTRIBUTION WIDTH 14.3 % (11.5-14.5); WHITE BLOOD COUNT 6.6 x10^3/uL (4.0-11.0)
[2021-10-27 12:24] LABS: ALBUMIN 2.9 g/dL (3.4-5.0); ALBUMIN/GLOBULIN RATIO 0.5 (1.0-1.7); CALCIUM 8.5 mg/dL (8.5-10.1); CREATININE 1.4 mg/dL (0.6-1.0); GFR 48.4; POTASSIUM 4.1 mmol/L (3.5-5.1); TOTAL BILIRUBIN 0.1 mg/dL (0.2-1.0); TOTAL PROTEIN 9.2 g/dL (6.4-8.2)
== END ==
LOC: LAB 11:17
PROVIDERS: ATTEND Family Medicine
DX: B20 Human immunodeficiency virus [HIV] disease (principal); Z79.899 Other long term (current) drug therapy
CPT/HCPCS: 80053; 80061; 85025; 86360; 87536

== ENCOUNTER → 2022-03-01 | Outpatient (CLI) | payer OTHER ==
[2022-03-01 12:31] LABS: ALBUMIN/GLOBULIN RATIO 0.5 (1.0-1.7); CALCIUM 8.6 mg/dL (8.5-10.1); CREATININE 1.2 mg/dL (0.6-1.0); GFR 57.5; TOTAL BILIRUBIN 0.3 mg/dL (0.2-1.0); TOTAL PROTEIN 8.9 g/dL (6.4-8.2)
[2022-03-01 12:36] LABS: BASO % 1 % (0-3); EOS # 0.1 x10^3/uL (0.0-0.7); EOS % 2 % (0-3); HEMOGLOBIN 11.4 g/dL (12.0-15.5); LYMPH # 1.4 x10^3/uL (1.0-4.8); LYMPH % 27 % (24-48); MEAN CORPUSCULAR HEMOGLOBIN 30 pg (25-35); MEAN CORPUSCULAR HGB CONC 34 g/dL (31-37); MEAN CORPUSCULAR VOLUME 90 fL (79-100); MONO # 0.5 x10^3/uL (0.0-1.1); MONO % 10 % (0-9); NEUT # 3.1 x10^3/uL (1.8-7.7); NEUT % 61 % (31-73); PLATELET COUNT 290 x10^3/uL (140-400); RED BLOOD COUNT 3.79 x10^6/uL (3.50-5.40); RED CELL DISTRIBUTION WIDTH 14.6 % (11.5-14.5); WHITE BLOOD COUNT 5.2 x10^3/uL (4.0-11.0)
[2022-03-01 12:57] LABS: CHOLESTEROL/HDL RATIO 7.1
== END ==
LOC: LAB 11:36
PROVIDERS: ATTEND Family Medicine
DX: B20 Human immunodeficiency virus [HIV] disease (principal); Z79.899 Other long term (current) drug therapy
CPT/HCPCS: 36415; 80053; 80061; 85025; 87536